=== PATIENT | female | born 1945 | race Caucasian/White ===

== ENCOUNTER → 2017-08-08 08:23 | Outpatient (POV) | payer MEDICARE, OTHER, SELFPAY ==
[2017-08-08 10:00] LABS: Basophils % 0.3 % (0.1-2.0); Eosinophils # 0.1 K/mm3 (0.0-0.4); Eosinophils % 1.3 % (0.1-12.0); Hematocrit 36.9 % (37.0-47.0); Hemoglobin 11.4 g/dL (12.2-16.2); Lymphocytes # 1.9 K/mm3 (0.7-4.5); Lymphocytes % 18.4 K/mm3 (10-50); Mean Corpuscular HGB Conc 30.8 g/dL (31.8-35.4); Mean Corpuscular Hemoglobin 26.3 pg (27.0-31.2); Mean Corpuscular Volume 85.2 fl (81-99); Mean Platelet Volume 8.7 fl (7.4-10.4); Monocytes # 0.5 K/mm3 (0.1-1.0); Monocytes % 4.6 % (1.7-9.3); Neutrophils # 7.9 K/mm3 (1.8-7.8); Neutrophils % 75.3 % (37.0-80.0); Platelet Count 398 K/mm3 (142-424); Red Blood Count 4.33 M/mm3 (4.20-5.40); Red Cell Distribution Width 14.7 % (11.5-17.5); White Blood Count 10.5 K/mm3 (4.8-10.8)
[2017-08-08 10:46] LABS: Erythrocyte Sedimentation Rate 39 mm/hr (0-30)
[2017-08-08 11:54] LABS: Alanine Aminotransferase 22 U/L (12-78); Albumin Level 3.7 gm/dL (3.4-5.0); Alkaline Phosphatase 100 U/L (46-116); Anion Gap 13.2 mEq/L (5-15); Aspartate Amino Transferase 20 U/L (15-37); Bilirubin,Total 0.4 mg/dL (0.2-1.0); Blood Urea Nitrogen 13 mg/dL (7-18); C-Reactive Protein 1.3 mg/L (0.0-0.9); Calcium 9.3 mg/dL (8.5-10.1); Carbon Dioxide 27 mmol/L (21.0-32.0); Chloride 102 mmol/L (98-107); Creatinine,Serum 0.98 mg/dL (0.55-1.02); Estimated Glomerular Filt Rate 56 ml/min (>60); Ferritin 6 ng/mL (8-388); GFR (African American) > 60 ML/MIN (>60); Globulin 3.6 gm/dl (1.3-3.2); Glucose 231 mg/dL (74-106); Potassium 4.2 mmoL/L (3.5-5.1); Sodium 138 mmol/L (136-145); Total Protein,Serum 7.3 gm/dL (6.4-8.2)
[2017-08-09 08:22] LABS: Iron 38 ug/dL (27-139); Iron Saturation 8 % (15-55); UIBC 413 ug/dL (118-369)
[2017-08-09 13:38] LABS: Vitamin B12 489 pg/mL (232-1245)
[2017-08-12 17:10] LABS: Saccharomyces cerevisiae, IgA <20.0 Units (0.0-24.9); Saccharomyces cerevisiae, IgG 36.3 Units (0.0-24.9)
== END ==
PROVIDERS: Visit Provider Nurse Practitioner Acute Care
DX: K51.90 Ulcerative colitis, unspecified, without complications (principal)
CPT/HCPCS: 36415; 80053; 82607; 82728; 83550; 85025; 85651; 86140

== ENCOUNTER → 2017-09-14 15:45 | Outpatient (CLI) | payer MEDICARE, OTHER, SELFPAY ==
[2017-09-14 15:52] LABS: Adenovirus F 40/41, stool Not Detected (NotDetected); Astrovirus Not Detected (NotDetected); Campylobacter Not Detected (NotDetected); Clostridium Difficile A/B, PCR Not Detected (NotDetected); Cryptosporidium Not Detected (NotDetected); Cyclospora Cayetanesis Not Detected (NotDetected); Entamoeba histolytica Not Detected (NotDetected); Enteroaggregative E coli Not Detected (NotDetected); Enteropathogenic E coli Not Detected (NotDetected); Enterotoxigenic E coli Not Detected (NotDetected); Giardia lamblia Not Detected (NotDetected); Norovirus Not Detected (NotDetected); Plesimonas Shigalloides, PCR Not Detected (NotDetected); Rotavirus A Not Detected (NotDetected); Salmonella, PCR Not Detected (NotDetected); Sapovirus Not Detected (NotDetected); Shiga-like toxin E coli Not Detected (NotDetected); Shigella Enterovasive E coli Not Detected (NotDetected); Vibrio Cholerae Not Detected (NotDetected); Vibrio, PCR Not Detected (NotDetected); Yersinia Entercolitica, PCR Not Detected (NotDetected)
== END ==
PROVIDERS: PCP Family Medicine; Visit Provider Nurse Practitioner Acute Care
DX: K51.90 Ulcerative colitis, unspecified, without complications (principal)
CPT/HCPCS: 87507

== ENCOUNTER → 2018-03-23 11:05 | Outpatient (CLI) | payer MEDICARE, OTHER, SELFPAY ==
--- NOTE | 2018-03-23 11:13 | XR_ITS ---
XR chest 2V HISTORY: ITS.REASON: dyspnea and chest pressure ORDERING PHYSICIAN: Jorgito Pollock MD PATIENT AGE: 72 years COMPARISON: 03/13/2015 FINDINGS: There has been interval placement of a bipolar pacemaker of a left subclavian approach. There is some increased density in the right lung base which may be related to pericardial fat pad. The lungs are otherwise clear. No acute bony anomalies. Mild degenerative change thoracic spine. IMPRESSION: Cardiac pacemaker device present otherwise negative
--- NOTE | 2018-03-23 11:13 | NM_ITS ---
History and Indications: Status post pacemaker, congestive heart failure, hypertension, diabetes, hyperlipidemia and family history. Procedure: Patient received a 0.4 mg of Lexiscan, resting heart rate was 82 beats per resting blood pressure 109/61, with Lexiscan maximum heart rate achieved was 93 bpm which is less than 85% of the maximum predicted heart rate and a blood pressure was 94/32. With Lexiscan patient chest pressure and shortness of breath Electrocardiogram: Resting electrocardiogram showed sinus rhythm, with Lexiscan less than 1.[address] segment depression noted from the baseline EKG. The EKG portion of the Lexiscan Myoview is nondiagnostic. Cardiac stress and resting SPECT images: Cardiac stress and resting SPECT images were obtained using technetium 99 Myoview 31.1 mCi at stress and 10.0 mCi at rest. Gated SPECT further analysis of segmental wall motion and calculation of the ejection fraction also done. Cardiac stress and rest images show a partial reversible defect in the anteroseptal area consistent with ischemia and scar, computer derived ejection fraction 51%, with abnormal septal motion. Right ventricle is normal size and contractility. Conclusion: 1. The EKG portion of the Lexiscan Myoview is nondiagnostic. 2. Scintigraphic evidence of partial reversible defect in the anteroseptal area consistent with ischemia and scar, computer derived ejection fraction 51% with abnormal septal motion. Right ventricle is normal size and contractility. 3. Abnormal Lexiscan Myoview study
[2018-03-23 13:40] LABS: Alanine Aminotransferase 28 U/L (12-78); Albumin Level 4.4 gm/dL (3.4-5.0); Alkaline Phosphatase 115 U/L (46-116); Aspartate Amino Transferase 24 U/L (15-37); Bilirubin,Direct 0.1 mg/dL (0.0-0.2); Bilirubin,Indirect 0.4 mg/dL (0.0-0.9); Bilirubin,Total 0.5 mg/dL (0.2-1.0); Cholesterol 215 mg/dL (140-200); HDL Cholesterol 43 mg/dL (29-89); LDL Cholesterol 137 mg/dL (0-130); Total Protein,Serum 8.8 gm/dL (6.4-8.2); Triglycerides 177 mg/dL (30-200); VLDL Cholesterol 35 mg/dL (0-40)
--- NOTE | 2018-03-23 14:33 | HMH.ITSHM ---
metformin asa losartan omprazole gemfibrozil venlafaxine
[2018-03-23 16:20] LABS: Anion Gap 22.1 mEq/L (5-15); Blood Urea Nitrogen 17 mg/dL (7-18); Calcium 10.6 mg/dL (8.5-10.1); Carbon Dioxide 23 mmol/L (21.0-32.0); Chloride 100 mmol/L (98-107); Creatinine,Serum 1.06 mg/dL (0.55-1.02); Estimated Glomerular Filt Rate 51 ml/min (>60); GFR (African American) 62 ML/MIN (>60); Glucose 248 mg/dL (74-106); Potassium 4.1 mmoL/L (3.5-5.1); Sodium 141 mmol/L (136-145)
== END ==
PROVIDERS: Internal Medicine Cardiovascular Disease; Urology; PCP Family Medicine; Visit Provider Internal Medicine
DX: R06.02 Shortness of breath (principal); R07.89 Other chest pain; I10 Essential (primary) hypertension; I25.10 Atherosclerotic heart disease of native coronary artery without angina pectoris; I42.8 Other cardiomyopathies
CPT/HCPCS: 36415; 71046; 78452; 80048; 80061; 80076; 83880; 93017; A9502; J2785

== ENCOUNTER → 2018-04-04 15:51 | Outpatient (CLI) | payer MEDICARE, OTHER, SELFPAY ==
[2018-04-04 16:19] LABS: Basophils % 0.1 % (0.1-2.0); Eosinophils % 0.3 % (0.1-12.0); Hematocrit 41.5 % (37.0-47.0); Hemoglobin 12.9 g/dL (12.2-16.2); Lymphocytes # 1.4 K/mm3 (0.7-4.5); Lymphocytes % 10.5 K/mm3 (10-50); Mean Corpuscular Hemoglobin 26.2 pg (27.0-31.2); Mean Corpuscular Volume 84.6 fl (81-99); Mean Platelet Volume 8.3 fl (7.4-10.4); Monocytes # 0.6 K/mm3 (0.1-1.0); Monocytes % 4.9 % (1.7-9.3); Neutrophils # 10.9 K/mm3 (1.8-7.8); Neutrophils % 84.2 % (37.0-80.0); Platelet Count 564 K/mm3 (142-424); Red Blood Count 4.91 M/mm3 (4.20-5.40); Red Cell Distribution Width 14.9 % (11.5-17.5)
[2018-04-04 16:24] LABS: Anion Gap 23.6 mEq/L (5-15); Blood Urea Nitrogen 47 mg/dL (7-18); Calcium 9.6 mg/dL (8.5-10.1); Carbon Dioxide 21 mmol/L (21.0-32.0); Chloride 92 mmol/L (98-107); Creatinine,Serum 2.32 mg/dL (0.55-1.02); Estimated Glomerular Filt Rate 21 ml/min (>60); GFR (African American) 25 ML/MIN (>60); Potassium 4.6 mmoL/L (3.5-5.1); Sodium 132 mmol/L (136-145)
[2018-04-04 16:41] LABS: Glucose 419 mg/dL (74-106)
== END ==
PROVIDERS: PCP Family Medicine; Visit Provider Internal Medicine
DX: R19.7 Diarrhea, unspecified (principal); I25.10 Atherosclerotic heart disease of native coronary artery without angina pectoris; I10 Essential (primary) hypertension; R06.00 Dyspnea, unspecified
CPT/HCPCS: 36415; 80048; 83880; 85025

== ENCOUNTER → 2018-04-05 09:19 | Outpatient (CLI) | payer MEDICARE, OTHER, SELFPAY ==
[2018-04-05 09:44] LABS: Anion Gap 16.8 mEq/L (5-15); Blood Urea Nitrogen 46 mg/dL (7-18); Calcium 9.9 mg/dL (8.5-10.1); Carbon Dioxide 27 mmol/L (21.0-32.0); Chloride 92 mmol/L (98-107); Creatinine,Serum 1.69 mg/dL (0.55-1.02); Estimated Glomerular Filt Rate 30 ml/min (>60); GFR (African American) 36 ML/MIN (>60); Glucose 371 mg/dL (74-106); Potassium 4.8 mmoL/L (3.5-5.1); Sodium 131 mmol/L (136-145)
== END ==
PROVIDERS: Physician Assistant; PCP Family Medicine; Visit Provider Internal Medicine
DX: E78.5 Hyperlipidemia, unspecified (principal); I10 Essential (primary) hypertension; I25.10 Atherosclerotic heart disease of native coronary artery without angina pectoris; I42.8 Other cardiomyopathies; R06.00 Dyspnea, unspecified; R19.7 Diarrhea, unspecified; Z95.810 Presence of automatic (implantable) cardiac defibrillator
CPT/HCPCS: 36415; 80048

== ENCOUNTER → 2018-05-24 08:41 | Outpatient (CLI) | payer MEDICARE, OTHER, SELFPAY ==
--- NOTE | 2018-05-24 08:50 | XR_ITS ---
XR chest 2V HISTORY: ITS.REASON: COUGH ORDERING PHYSICIAN: Eva Baumann PATIENT AGE: 73 years COMPARISON: 03/23/2018 FINDINGS: Cardiac pacemaker is present from left subclavian approach. Normal heart size. Increased density right lung base medially unchanged felt to represent a pericardial fat pad degenerative change thoracic spine. No lobar consolidation or collapse. IMPRESSION: No change with no acute finding
== END ==
PROVIDERS: PCP Family Medicine; Visit Provider Nurse Practitioner Family
DX: R05 Cough (principal)
CPT/HCPCS: 71046

== ENCOUNTER → 2018-08-10 10:28 | Outpatient (CLI) | payer MEDICARE, OTHER, SELFPAY ==
[2018-08-10 12:01] LABS: Anion Gap 21.8 mEq/L (5-15); Blood Urea Nitrogen 30 mg/dL (7-18); Calcium 9.4 mg/dL (8.5-10.1); Carbon Dioxide 20 mmol/L (21.0-32.0); Chloride 100 mmol/L (98-107); Creatinine,Serum 1.21 mg/dL (0.55-1.02); Estimated Glomerular Filt Rate 44 ml/min (>60); GFR (African American) 53 ML/MIN (>60); Glucose 196 mg/dL (74-106); Potassium 4.8 mmoL/L (3.5-5.1); Sodium 137 mmol/L (136-145)
== END ==
PROVIDERS: Visit Provider Internal Medicine Cardiovascular Disease
DX: E78.2 Mixed hyperlipidemia (principal); I10 Essential (primary) hypertension; I25.10 Atherosclerotic heart disease of native coronary artery without angina pectoris; I42.8 Other cardiomyopathies; R06.00 Dyspnea, unspecified; R06.01 Orthopnea; R06.02 Shortness of breath; R60.9 Edema, unspecified; Z95.810 Presence of automatic (implantable) cardiac defibrillator
CPT/HCPCS: 36415; 80048; 83880

== ENCOUNTER → 2018-08-15 09:51 | Outpatient (CLI) | payer MEDICARE, OTHER, SELFPAY ==
--- NOTE | 2018-08-15 09:55 | CA_ITS ---
PROCEDURE: 2-D M-mode and color Doppler study INDICATIONS FOR THE TEST: Chest pain COPD Heart Murmur Tobacco Smoking Palpitations Fatigue Syncope Edema+ Hypertension+Diabetes Mellitus Rheumatic Fever SOB+JOHNSON Obesity Hyperlipidemia+ Family History HD Additional History AICD CM PATIENT INFORMATION HEIGHT: 65 WEIGHT:154 GENDER: Female B/P:96/43 2-D/M-MODE INTERPRETATION: 2-D MEASUREMENTS OBSERVED VALUES IN CMS Right Ventricular Dimension (RVDd) 1.9 Interventricular Septum (Thickness)(IVsd) 1.1 Left Ventricular Internal Dimensions(LVIDd) 4.8 Left Ventricular Posterior Wall (Thickness)(LVPWd) 0.8 Aortic Root 3.0 Aortic Cusp Separation 1.9 Left Atrial Dimensions (LAD) 2.9 2D 1. Left atrium is mildly enlarged, left ventricle is normal size, mild concentric left ventricular hypertrophy, visually estimated ejection fraction approximately 45%, there is marked abnormal septal motion. 2. The right atrium and right ventricle are normal size and contractility, there is a pacemaker lead seen right atrium and right ventricle. 3. The aortic valve is minimally thickened and fibrosed. 4. The mitral and tricuspid valve leaflets are minimally thickened . 5. The pulmonic valve is poorly visualized. 6. No significant pericardial effusion noted. DOPPLER INTERROGATION: Doppler interrogation of the aortic, mitral and tricuspid valvular presence of mild mitral and tricuspid regurgitation, tricuspid regurgitation jet velocity is inadequate for calculation of the right ventricular systolic pressure, grade 1 diastolic dysfunction seen with tissue Doppler evidence of raised left atrial pressure. CONCLUSION: 1. Mildly enlarged left atrium, normal left ventricular size, mild concentric left ventricular hypertrophy, visually estimated ejection fraction of 45%, there is marked abnormal septal motion, grade 1 diastolic dysfunction seen with tissue Doppler evidence of raised left atrial pressure. 2. Mild mitral and tricuspid regurgitation 3. No significant pericardial effusion noted.
== END ==
PROVIDERS: PCP Family Medicine; Visit Provider Internal Medicine Cardiovascular Disease
DX: R06.02 Shortness of breath
CPT/HCPCS: 93306

== ENCOUNTER → 2018-12-13 08:30 | Outpatient (CLI) | payer MEDICARE, OTHER, SELFPAY ==
--- NOTE | 2018-12-13 08:32 | MM_ITS ---
MM Dig screening mamm BI w/CAD ORDERING PHYSICIAN : Elsie Mccurdy APRN PATIENT AGE: 73 years GENDER: Female COMPARISON: No previous studies available studies from this facility have been purged INDICATION: ITS bilateral screening mammogram. No hormones. No new complaints. Patient has history of skin cancer Noncontributory family history otherwise. TECHNIQUE: Standard CC and MLO images were obtained. R2 CAD reviewed. Axillary cc view both breast included FINDINGS:. Areas of moderate breast density.. Mild /moderate scattered fibroglandular elements Scattered round spherical benign benign calcifications both breasts.. Likely in part reflect benign oil cysts.. RIGHT BREAST: Area labeled A: 9 mm ovoid density at the lateral right breast is most compatible with benign intramammary lymph node. Central fat lucency & umbilication. This area measuring up to 9 mm maximally. It can be followed Area labeled B: On close inspection I would note some tiny granular calcifications, microcalcifications at the central breast. These warrant further evaluation with magnification spot views. Cc 90 degree magnification views. Full 90 degree right breast view suggested as well LEFT BREAST: A similar 9 mm ovoid density with central fat reflecting intramammary node upper-outer quadrant/far lateral left breast. Can be followed. Pacemaker projected over the deep axillary left breast. In view of the slight suspect calcifications I would also suggest ultrasound both breast including axillary node survey. IMPRESSION: 1. Right breast Collection of Small faint granular calcifications & microcalcifications at through Central breast.-This region labeled B.... Warrants magnification spot views to further evaluate 2. Benign appearing intramammary nodes seen towards the periphery of upper outer quadrant of both right & left breast..... On these appear to be benign intramammary nodes but would suggest ultrasound both breasts to further survey. BI-RADS Category: 0 Need Additional Imaging Evaluation RECOMMENDED FOLLOW-UP: IMM - IMMEDIATE FOLLOW-UP RECOMMENDED (A letter has been sent to the patient regarding results of the study.)
== END ==
PROVIDERS: PCP Nurse Practitioner Family; Visit Provider Nurse Practitioner Family
DX: Z12.31 Encounter for screening mammogram for malignant neoplasm of breast (principal)
CPT/HCPCS: 77067

== ENCOUNTER → 2019-01-01 13:35 | Outpatient (CLI) | payer MEDICARE, OTHER, SELFPAY ==
--- NOTE | 2019-01-01 13:42 | MM_ITS ---
MM Dig mamm DX unilat RT CAD, US breast LT complete, US breast RT complete INDICATION: Follow-up abnormal screening study ORDERING PHYSICIAN: Elsie Mccurdy APRN PATIENT AGE: 73 years COMPARISON: 12/13/2018 TECHNIQUE: Mag views are performed of the right breast and bilateral breast ultrasound also performed. FINDINGS: The previously noted area of calcification in the 12:00 region of the right breast is localized by mag views. This cluster has a suspicious appearance with a cluster of pleomorphic calcifications. Biopsy is suggested and may be attempted by the stereotactic approach. Right breast ultrasound: Scattered small hyperechoic nodules with posterior acoustical shadowing noted corresponding to the liponecrosis macrocystica as seen on the mammogram represent benign finding. In the outer aspect of the right breast there is an 8 mm complex nodule with increased echogenicity centrally and hypoechogenicity peripherally consistent with a lymph node measuring 9 mm. Left breast ultrasound: Scattered small rounded hyperechoic foci with posterior acoustical shadowing consistent with liponecrosis macrocystic as seen on the mammogram. There is an 8 mm x 10 mm lymph node in the upper outer left breast corresponding to the mammographic abnormality. IMPRESSION: Calcifications in the superior right breast anterior one third are suspicious and stereotactic biopsy is suggested. BI-RADS Category: 4 Suspicious Abnormality-Biopsy Considered RECOMMENDED FOLLOW-UP: BIO - BIOPSY RECOMMENDED (A letter has been sent to the patient regarding results of the study.)
== END ==
PROVIDERS: PCP Nurse Practitioner Family; Visit Provider Nurse Practitioner Family
DX: R92.8 Other abnormal and inconclusive findings on diagnostic imaging of breast (principal)
CPT/HCPCS: 76641; 77065

== ENCOUNTER → 2019-01-30 13:04 | Outpatient (CLI) | payer MEDICARE, OTHER, SELFPAY ==
--- NOTE | 2019-01-30 13:12 | MM_ITS ---
MM stereotactic loc RT, MM clip placement RT ORDERING PHYSICIAN: Elsie Mccurdy APRN PATIENT AGE: 73 years Comparison: 12/13/2018 HISTORY: Breast calcifications, abnormal right mammogram showing suspicious calcifications PROCEDURE: The patient was placed on the stereotactic table and the abnormality was localized in the most appropriate projection. The breast was prepped in the routine manner, with sterile prep and the overlying skin anesthetized. A 3 to 4 mm skin incision was performed and the 9 gauge sorus vacuum-assisted core biopsy needle was advanced to the region of the calcification. Pre- and post fire images were obtained. After adequate positioning relative to the calcifications was ensured, multiple biopsies were obtained in the region of the calcifications specifically. The core biopsies obtained were sent for specimen mammography. After the calcifications were indeed identified on the specimen mammogram, the procedure was terminated. The patient tolerated the procedure well without complications. A tiny titanium nonferromagnetic MicroMark was positioned through the mammotome needle into the biopsy site. Postbiopsy mammogram: There are postbiopsy changes in central aspect of the right breast. A clip is present. Previously noted suspicious calcifications are no longer. Pathology: Fibrocystic changes with ductal microcalcifications and patchy areas of chronic inflammation. No atypia, ductal carcinoma in situ, or malignancy identified IMPRESSION: Status post stereotactic directed biopsy of the right breast calcifications without evidence of immediate complication. Calcifications of interest were removed, a clip placed. Pathology shows benign findings. Recommendations: 6 month mammographic follow-up of the right breast per routine protocol
== END ==
PROVIDERS: PCP Nurse Practitioner Family; Visit Provider Nurse Practitioner Family
DX: R92.1 Mammographic calcification found on diagnostic imaging of breast (principal)
CPT/HCPCS: 19081; 77065; 88305

== ENCOUNTER → 2019-07-06 10:20 | Outpatient (CLI) | payer MEDICARE, OTHER, SELFPAY ==
[2019-07-06 11:27] LABS: Anion Gap 12.7 mEq/L (5-15); Blood Urea Nitrogen 19 mg/dL (7-18); Calcium 9.1 mg/dL (8.5-10.1); Carbon Dioxide 28 mmol/L (21.0-32.0); Chloride 100 mmol/L (98-107); Creatinine,Serum 0.92 mg/dL (0.55-1.02); Estimated Glomerular Filt Rate 60 ml/min (>60); GFR (African American) 73 ML/MIN (>60); Glucose 307 mg/dL (74-106); Potassium 4.7 mmoL/L (3.5-5.1); Sodium 136 mmol/L (136-145)
== END ==
PROVIDERS: Urology; Visit Provider Internal Medicine Cardiovascular Disease
DX: R06.00 Dyspnea, unspecified (principal); E78.2 Mixed hyperlipidemia; I10 Essential (primary) hypertension; I25.10 Atherosclerotic heart disease of native coronary artery without angina pectoris; I42.8 Other cardiomyopathies; R06.02 Shortness of breath; R60.9 Edema, unspecified; Z95.810 Presence of automatic (implantable) cardiac defibrillator
CPT/HCPCS: 36415; 80048; 83880

== ENCOUNTER → 2019-10-05 10:15 | Outpatient (CLI) | payer MEDICARE, OTHER, SELFPAY ==
[2019-10-05 11:18] LABS: Chloride 103 mmol/L (98-107); Potassium 4.6 mmoL/L (3.5-5.1); Sodium 140 mmol/L (136-145)
[2019-10-05 11:21] LABS: Blood Urea Nitrogen 25 mg/dl (7-17); Estimated Glomerular Filt Rate 62 ml/min (>60); GFR (African American) 74 ML/MIN (>60)
[2019-10-05 11:22] LABS: Anion Gap 16.6 mEq/L (5-15); Calcium 10.6 mg/dl (8.4-10.2); Carbon Dioxide 25 mmol/L (22.0-30.0); Glucose 184 mg/dl (74-100)
[2019-10-05 11:31] LABS: NT Pro Brain Natriuretic Pep. 152 pg/mL (0-125)
== END ==
PROVIDERS: Visit Provider Urology
DX: R06.02 Shortness of breath (principal); I25.10 Atherosclerotic heart disease of native coronary artery without angina pectoris
CPT/HCPCS: 36415; 80048; 83880

== ENCOUNTER → 2020-06-09 14:51 | Outpatient (CLI) | payer MEDICARE, OTHER, SELFPAY | PROVIDERS: PCP Nurse Practitioner Family; Visit Provider Nurse Practitioner Family | DX: Z03.818 Encounter for observation for suspected exposure to other biological agents ruled out (principal) | CPT/HCPCS: U0003 ==

== ENCOUNTER → 2020-07-30 12:47 | Outpatient (CLI) | payer MEDICARE, OTHER, SELFPAY ==
--- NOTE | 2020-07-30 | CA_ITS ---
APPROVED REPORT Assistant Credit Manager: BATSHEVA Laterality: Bilateral Indications: Dizziness, HLD, HTN, CAD Risk Factors Hypertension: Hyperlipidemia Doppler Spectral Velocity Analysis ECA (R) 115.50/15.00 cm/s ECA (L) 116.70/22.40 cm/s dICA (R) 55.20/15.00 cm/s dICA (L) 59.90/16.00 cm/s Italo (R) 53.50/14.50 cm/s Italo (L) 68.80/20.20 cm/s pICA (R) 71.10/19.70 cm/s pICA (L) 62.10/15.00 cm/s dCCA (R) 75.40/18.80 cm/s dCCA (L) 79.00/18.30 cm/s pCCA (R) 78.80/15.40 cm/s pCCA (L) 96.30/18.30 cm/s Vert (R) 38.50/10.30 cm/s Vert (L) 44.90/9.00 cm/s ICA/CCA 0.94 ICA/CCA 0.87 Findings Duplex evaluation demonstrates stenosis of the right proximal internal carotid artery <20% with PSV <140 cm/sec, EDV <100 cm/sec, and IC/CC Ratio <4.0. Duplex evaluation demonstrates no evidence of hemodynamically significant stenosis of the left Internal Carotid Artery. Conclusion Duplex evaluation demonstrates stenosis of the right proximal internal carotid artery <20% with PSV <140 cm/sec, EDV <100 cm/sec, and IC/CC Ratio <4.0. Duplex evaluation demonstrates no evidence of hemodynamically significant stenosis of the left Internal Carotid Artery. Electronically signed by : Matt Will MD 07/31/2020 08:59:37
--- NOTE | 2020-07-30 13:31 | CT_ITS ---
PROCEDURE: CT HEAD/BRAIN WO CON CLINICAL INDICATION: DIZZINESS,BALANCE PROBLEMS COMPARISON: No exams were available for comparison TECHNIQUE: Axial images obtained. All CT scans at the facility use one or more dose reduction, viz: automated exposure control, ma/kV adjustment per patient size (including targeted exams where dose is matched to indication, i.e. head), or iterative reconstruction technique. FINDINGS: No midline shift, mass effect, intracranial hemorrhage, hydrocephalus, or extra-axial fluid collection is evident. The basilar cisterns are mildly prominent. The sylvian fissures and cortical sulci prominent. There are mild atrophic changes of the cerebellar hemispheres. There are mild bilateral periventricular hypodensities consistent with chronic ischemic white matter changes. The calvarium has an unremarkable appearance. No mastoid effusion. The bilateral internal auditory canals appear normal. No sinus air-fluid level. IMPRESSION: Findings of mild age-appropriate cortical atrophy and mild chronic ischemic white matter changes, no acute intracranial pathology Dictated by: Dr. Ez Mcleod MD 07/30/2020 14:39 Dr. Ez Mcleod MD in [facility] 07/30/2020 14:39
--- NOTE | 2020-07-30 13:32 | US_ITS ---
PROCEDURE: US THYROID Referring Doctor: Elsie Mccurdy Patient Age:75Y CLINICAL INDICATION: THYROID NODULEs COMPARISON: No exams were available for comparison FINDINGS: Numerous scattered small mainly cystic areas and small hypoechoic nodules both right and left lobe. Too numerous to count all these the tinier and smaller smaller areas.-The more notable areas highlighted below. Previous study from [facility] not available. .. RIGHT LOBE thyroid: Overall 3.7 cm length x 2 cm wide x 1.1 cm AP Nodule A: Upper pole 3.7 mm debris-filled cyst or semi-solid nodule. Nodule B: Mid thyroid centrally 3.6 mm cyst nodule C: 3.5 mm mainly small cystic nodule with minimal solid component posteriorly. .. LEFT LOBE THYROID: Overall 3.6 cm length x 1.6 cm wide x 1.2 cm AP Nodule A: Upper pole 7.8mm x 6 mm-mainly cystic area with some small 3.5 mm round more solid component within it.. Nodule B:. 6 mm x 3.5 mm again mainly cystic nodule with a more solid round area with it nodule C:. 5 mm mainly cystic area with small tiny solid area within it.. ISTHMUS: Upper normal thickness 4.8 mm AP. Two or 3 very tiny cystic areas at isthmus . IMPRESSION: 1..Numerous small cystic areas, and mixed cystic/solid areas seen throughout thyroid gland bilaterally. Many these cystic areas containing containing small solid components within them. -The largest cystic area with solid nodule within it at upper pole left lobe measures 7.8 mm. 2...Right and left lobe thyroid normal size,. Dictated by: Matt Will MD 08/02/2020 15:04 Matt Will MD in [facility] 08/02/2020 15:04
== END ==
PROVIDERS: PCP Nurse Practitioner Family; Visit Provider Nurse Practitioner Family
DX: R42 Dizziness and giddiness (principal); E04.1 Nontoxic single thyroid nodule; R26.89 Other abnormalities of gait and mobility
CPT/HCPCS: 70450; 76536; 93880

== ENCOUNTER → 2020-10-10 12:50 | Outpatient (CLI) | payer MEDICARE, OTHER, SELFPAY ==
--- NOTE | 2020-10-10 13:01 | US_ITS ---
PROCEDURE: US THYROID CLINICAL INDICATION: Thyroid Nodules Follow-up thyroid nodules COMPARISON: US US THYROID from 07/30/2020 FINDINGS: The right lobe is 3.7 x 1.4 x 1.9 cm. A 5 mm hypoechoic solid-appearing nodules present in the upper pole unchanged. Several small cysts are present in the right lobe which are benign appearing and unchanged. The left lobe is 3.6 x 1.3 x 1.3 cm. A complex cystic nodules present in the upper pole at 8 x 4 mm unchanged. Mixed nodules present in the midpole at 6 mm unchanged. Solid-appearing nodules present in the mid polar region at 5 mm unchanged. There is a 6 mm cyst in the lower pole unchanged IMPRESSION: No change bilateral benign-appearing thyroid nodules Dictated by: Zachary Stone MD 10/10/2020 17:18 Zachary Stone MD in [facility] 10/10/2020 17:18
[2020-10-10 15:20] LABS: Free T4 (Free Thyroxine) 0.88 ng/dl (0.78-2.19)
[2020-10-12 10:31] LABS: Thyroid Peroxidase Antibodies <9 IU/mL (0-34)
== END ==
PROVIDERS: PCP Nurse Practitioner Family; Visit Provider Otolaryngology
DX: E04.1 Nontoxic single thyroid nodule (principal); E07.9 Disorder of thyroid, unspecified; H93.19 Tinnitus, unspecified ear; R42 Dizziness and giddiness
CPT/HCPCS: 36415; 76536; 84439; 84443; 86376

== ENCOUNTER 2020-10-15 17:00 | Inpatient (IN) | payer MEDICARE, OTHER, SELFPAY ==
[2020-10-15] VITALS (32 sets, daily range): BP systolic 139–203; BP diastolic 76–120; PULSE 62–110; RESP 13–29; TEMP 36.6–36.8; O2SAT 88–98; BMI 25.7; BMI 24.0
--- NOTE | 2020-10-15 16:56 | ECG_ITS ---
APPROVED REPORT Exam: Resting ECG HR:111 bpm ECG Measurements Heart Rate 111 AXES OH 136 P 70 QRSd 134 QRS 84 QT 332 T 268 QTc 451 Conclusion Demand pacemaker, interpretation is based on intrinsic rhythm Sinus tachycardia with occasional and consecutive premature ventricular complexes and fusion complexes Abnormal ECG Electronically signed by : Joni Corcoran, 10/17/2020 11:44:12
--- NOTE | 2020-10-15 17:01 | XR_ITS ---
PROCEDURE: XR CHEST PORTABLE CLINICAL HISTORY: chest pain COMPARISON: No exams were available for comparison FINDINGS: There is borderline cardiomegaly. Cardiac pacemaker device is present. Two leads are in the region of the right ventricle and 1 in the region the right atrium. No CHF. The lungs are clear without infiltrates, suspicious nodules, or pleural effusions. No acute bony abnormalities. IMPRESSION: Borderline cardiomegaly with pacemaker present. Dictated by: Zachary Stone MD 10/15/2020 19:35 Zachary Stone MD in [facility] 10/15/2020 19:35
--- NOTE | 2020-10-15 17:01 | PC.NURSE ---
1055- EKG sent to Dr. Pollock
--- NOTE | 2020-10-15 17:04 | HMH.EDCP ---
ED Disposition Clinical Impression: Hypertensive urgency Chest pain Qualifiers: Chest pain type: unspecified Qualified Code(s): R07.9 - Chest pain, unspecified Disposition: Admitted as Observation Condition on Discharge: Good Referrals: Provider,Referral, [Referring] - Time of Disposition: 19:57 - Critical Care Critical Care Time: No Attestation: On 10/15/20, the high probability of a clinically significant, sudden or life threatening deterioration of the following system(s) required my full and direct attention, intervention and personal management. The time I documented below is in addition to time spent performing reported procedures but includes the following listed in this critical care notation. Medical Decision Making - Medical Records Medical records reviewed: Yes: I reviewed the patient's medical records. - Alberto Inquiry Pt receiving controlled substance: No Vital Signs: 10/15/20 17:00 10/15/20 17:05 10/15/20 17:15 Temperature 98.1 F Temperature Source Oral Pulse Rate 108 H 70 Pulse Rate [Right] 108 H Respiratory Rate 18 23 29 H Blood Pressure Blood Pressure [Right Arm] 190/102 H Blood Pressure Mean Blood Pressure Mean [Right Arm] 131 02 Sat by Pulse Oximetry 98 98 97 10/15/20 17:16 10/15/20 17:30 10/15/20 17:31 Temperature Temperature Source Pulse Rate 109 H 106 H 103 H Pulse Rate [Right] Respiratory Rate 22 20 20 Blood Pressure 193/112 H 202/120 H Blood Pressure [Right Arm] Blood Pressure Mean 139 133 Blood Pressure Mean [Right Arm] 02 Sat by Pulse Oximetry 97 98 97 10/15/20 17:45 10/15/20 17:46 10/15/20 18:00 Temperature Temperature Source Pulse Rate 62 98 H 107 H Pulse Rate [Right] Respiratory Rate 20 22 22 Blood Pressure 192/92 H Blood Pressure [Right Arm] Blood Pressure Mean 125 Blood Pressure Mean [Right Arm] 02 Sat by Pulse Oximetry 93 L 94 L 93 L 10/15/20 18:01 10/15/20 18:15 10/15/20 18:30 Temperature Temperature Source Pulse Rate 101 H 110 H Pulse Rate [Right] Respiratory Rate 16 20 22 Blood Pressure 203/113 H 200/119 H Blood Pressure [Right Arm] Blood Pressure Mean 135 146 Blood Pressure Mean [Right Arm] 02 Sat by Pulse Oximetry 95 96 10/15/20 18:31 10/15/20 18:45 10/15/20 18:46 Temperature Temperature Source Pulse Rate Pulse Rate [Right] Respiratory Rate 22 13 17 Blood Pressure 168/90 H 202/118 H Blood Pressure [Right Arm] Blood Pressure Mean 116 136 Blood Pressure Mean [Right Arm] 02 Sat by Pulse Oximetry 10/15/20 19:00 10/15/20 19:06 10/15/20 19:15 Temperature Temperature Source Pulse Rate 100 H 96 H 107 H Pulse Rate [Right] Respiratory Rate 21 13 19 Blood Pressure 170/104 H 158/100 H 163/106 H Blood Pressure [Right Arm] Blood Pressure Mean 126 117 117 Blood Pressure Mean [Right Arm] 02 Sat by Pulse Oximetry 88 L 91 L 93 L - Lab Data Lab results reviewed: Yes: I reviewed the patient's lab results. Lab Results 10/15/20 17:01: WBC 10.9 H, RBC 5.48 H, Hgb 16.1, Hct 48.2 H, MCV 87.9, MCH 29.4, MCHC 33.5, RDW 14.1, Plt Count 274, MPV 8.5, Neut % (Auto) 64.6, Lymph % (Auto) 29.1, Stephens % (Auto) 4.7, Eos % (Auto) 1.2, Baso % (Auto) 0.3, Neut # (Auto) 7.1, Lymph # (Auto) 3.2, Stephens # (Auto) 0.5, Eos # (Auto) 0.1, Baso # (Auto) 0.0 10/15/20 17:01: Sodium 134 L, Potassium 4.2, Chloride 101, Carbon Dioxide 22, Anion Gap 15.2 H, BUN 15, Creatinine 0.60, Estimated Creat Clear 50, Estimated GFR 98, Est GFR ( Amer) 119, Glucose 362 H, Calcium 10.3 H, Troponin I < 0.01 10/15/20 17:01: PT 10.9, INR 0.92 10/15/20 17:01: NT-Pro-B Natriuret Pep 468 H Result diagrams: 10/15/20 17:01 10/15/20 17:01 Orders (Tests/Meds): ORDERS Category Date Time Status Full Resp Panel w/COVID ([facility]) Routine Lab 10/15/20 19:03 Received Troponin I Q3H Lab 10/15/20 20:15 Ordered Troponin I Q3H Lab 10/15/20 23:15 Ordered Urinalysis a
[2020-10-15 17:31] LABS: Anion Gap 15.2 mEq/L (5-15); Blood Urea Nitrogen 15 mg/dl (7-17); Calcium 10.3 mg/dl (8.4-10.2); Carbon Dioxide 22 mmol/L (22.0-30.0); Chloride 101 mmol/L (98-107); Creatinine Clearance Estimated 50 mL/min (50-200); Estimated Glomerular Filt Rate 98 ml/min (>60); GFR (African American) 119 ML/MIN (>60); Glucose 362 mg/dl (74-100); Potassium 4.2 mmoL/L (3.5-5.1); Sodium 134 mmol/L (136-145)
[2020-10-15 17:32] LABS: Basophils % 0.3 % (0.1-2.0); Eosinophils # 0.1 K/mm3 (0.0-0.4); Eosinophils % 1.2 % (0.1-12.0); Hematocrit 48.2 % (37.0-47.0); Hemoglobin 16.1 g/dL (12.2-16.2); Lymphocytes # 3.2 K/mm3 (0.7-4.5); Lymphocytes % 29.1 % (10-50); Mean Corpuscular HGB Conc 33.5 g/dL (31.8-35.4); Mean Corpuscular Hemoglobin 29.4 pg (27.0-31.2); Mean Corpuscular Volume 87.9 fl (81-99); Mean Platelet Volume 8.5 fl (7.4-10.4); Monocytes # 0.5 K/mm3 (0.1-1.0); Monocytes % 4.7 % (1.7-9.3); Neutrophils # 7.1 K/mm3 (1.8-7.8); Neutrophils % 64.6 % (37.0-80.0); Platelet Count 274 K/mm3 (142-424); Red Blood Count 5.48 M/mm3 (4.20-5.40); Red Cell Distribution Width 14.1 % (11.5-17.5); White Blood Count 10.9 K/mm3 (4.8-10.8)
[2020-10-15 17:38] LABS: INR 0.92 (0.9-1.1); Prothrombin Time 10.9 seconds (10.1-12.5)
[2020-10-15 17:46] LABS: Troponin I < 0.01 ng/ml (0.00-0.034)
[2020-10-15 18:44] LABS: NT Pro Brain Natriuretic Pep. 468 pg/mL (0-125)
--- NOTE | 2020-10-15 19:11 | PC.NURSE ---
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 kellogg
[2020-10-15 19:21] LABS: Adenovirus,PCR Not Detected (NotDetected); Bordetella Pertussis Not Detected (NotDetected); Chlamydophila Pneumoniae, PCR Not Detected (NotDetected); Coronavirus 19, PCR Not Detected (NotDetected); Coronavirus 229E Not Detected (NotDetected); Coronavirus NL63 Not Detected (NotDetected); Coronavirus OC43 Not Detected (NotDetected); Coronovirus HKU1,PCR Not Detected (NotDetected); Human Metapneumovirus Not Detected (NotDetected); Influenza A, PCR Not Detected (NotDetected); Influenza AH1, 2009 Not Detected (NotDetected); Influenza AH1, PCR Not Detected (NotDetected); Influenza AH3,PCR Not Detected (NotDetected); Influenza B, PCR Not Detected (NotDetected); Mycoplasma Pneumoniae, PCR Not Detected (NotDetected); Parainfluenza 1, PCR Not Detected (NotDetected); Parainfluenza 2, PCR Not Detected (NotDetected); Parainfluenza 3, PCR Not Detected (NotDetected); Parainfluenza 4, PCR Not Detected (NotDetected); Respiratory Syncytial Virus Not Detected (NotDetected); Rhinovirus/Enterovirus Not Detected (NotDetected)
--- NOTE | 2020-10-15 19:21 | PC.NURSE ---
received report from day nurse. discussed orders with md and was advised no new orders needed at this time.
--- NOTE | 2020-10-15 19:54 | PC.NURSE ---
speaking to dr. rueda at this time.
--- NOTE | 2020-10-15 20:01 | PC.NURSE ---
re-confirmed no new orders. pt currently on plavix and asa. no asa ordered during ed stay. no asa ordered, but allowed to place nitro paste for continued chest pressure.
[2020-10-15 20:04] LABS: Troponin I 0.04 ng/ml (0.00-0.034)
[2020-10-15 20:05] LABS: Microscopic, Urine URINE MICROSCOPIC (MICROSCOPIC)
[2020-10-15 20:07] LABS: Appearance,Urine CLEAR (Clear); Bilirubin,Urine Negative (Negative); Blood, Urine 1+ (Negative); Color,Urine YELLOW (Yellow); Glucose,Urine (UA) 3+ (Negative); Ketones,Urine 1+ (Negative); Leukocyte Esterase,Urine Negative (Negative); Nitrate,Urine Negative (Negative); Protein,Urine 3+ (Negative); Specific Gravity, Urine 1.025 (1.005-1.030); Urobilinogen,Urine 0.2 EU/dl (0.2)
[2020-10-15 20:53] LABS: Bacteria,Urine Trace /lpf; Squamous Epithelial Cell,Urine Occasional #/hpf (0-5); WBC,Urine Occasional #/hpf (0-3)
--- NOTE | 2020-10-15 21:58 | PC.NURSE ---
This RN spoke with pt and on status of bed. COVID swab has 40 min left according to lab. Pt understanding and states no needs at this time. Pt also reports chest pain has subsided since nitro paste applied.
--- NOTE | 2020-10-15 22:56 | PC.NURSE ---
PT ARRIVED TO FLOOR VIA W/C FROM ED W/STAFF AT [id number]
--- NOTE | 2020-10-15 23:30 | PC.NURSE ---
PT REPORTS SHE FEELS SHE HAS A UNKNOWN RASH ON HER RIGHT HAND. THE HAND IS PINK/RED IN COLOR, NO RAISED AREAS OR ITCHING NOTED.
[2020-10-16] VITALS (24 sets, daily range): BP systolic 122–190; BP diastolic 70–92; PULSE 76–104; RESP 16–18; TEMP 36.6–36.9; O2SAT 90–98; BMI 25.6
--- NOTE | 2020-10-16 | IR_ITS ---
APPROVED REPORT Patient Location: [facility] Contact Lens: ALEN Mcclain RT (R) PROCEDURES Left heart catheterization Left ventriculogram Selective coronary angiogram INDICATION Acute non-ST elevation myocardial infarction, Known coronary disease, Systolic congestive heart failure Informed consent was obtained prior to the procedure. COMPLICATIONS None Estimated Blood Loss: Less than 10 mls TECHNIQUE One percent lidocaine used to anesthetize the right anterior aspect of the wrist. The right radial artery was accessed via the Seldinger technique. A 6 Cypriot sheath was placed in the right radial artery. 2.5 mg of verapamil, 800 mcg of nitroglycerin, 1mg Lidocaine and 5000 U Heparin were given through the arterial sheath. The trap catheter was also used to perform left heart catheterization, left ventriculogram and selective coronary angiogram. At the end of the procedure the sheath was removed good hemostasis was achieved using Traclet band, patient was transferred to the postop holding area in stable condition. ANGIOGRAPHIC RESULTS The left main artery Has an ostial 20% stenosis The left anterior descending artery Has a stent the proximal segment widely patent free of in-stent restenosis with excellent proximal distal transitioning The circumflex artery Large codominant normal The right coronary artery Codominant normal The TAVERA ventriculogram reveals Dilated ventricle with anterior wall hypokinesis estimate ejection fraction 25 to 30% The left ventricular end-diastolic pressure Severely elevated at 30 to 35 mmHg IMPRESSION Widely patent coronary arteries as described above Previous anterior myocardial infarction with large regional wall motion abnormality and severely elevated LVEDP Type II myocardial infarction secondary to decompensated heart failure PLAN 1. Standard therapy for ischemic heart disease 2. Standard therapy for systolic congestive heart failure 3. Patient requires diuresis at this time due to the elevated LVEDP Electronically signed by : Jorgito Pollock, 10/16/2020 10:47:03
[2020-10-16 00:15] LABS: Troponin I 2.05 ng/ml (0.00-0.034)
--- NOTE | 2020-10-16 01:02 | PC.NURSE ---
DR HAIDER PAGED AT [phone] AD [phone] TO REPORT CRITICAL LAB. AWAITING CALL.
--- NOTE | 2020-10-16 02:28 | PC.NURSE ---
TROPONIN REPORTED TO MD HAIDER. NO NEW ORDERS.
--- NOTE | 2020-10-16 04:09 | PC.NURSE ---
PT HAS SLEPT WELL SINCE ARRIVAL TO FLOOR. NO C/O CP, SOA, N/V/D. PT AMBULATES INDEPENDENTLY IN ROOM. 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 VSS. CALL LIGHT WITHIN REACH. WILL CONT. TO MONITOR.
[2020-10-16 06:22] LABS: POC Glucose,Bedside 276 (70-110)
[2020-10-16 06:45] LABS: Basophils % 0.2 % (0.1-2.0); Eosinophils % 0.2 % (0.1-12.0); Hematocrit 49.7 % (37.0-47.0); Hemoglobin 16.3 g/dL (12.2-16.2); Lymphocytes # 2.4 K/mm3 (0.7-4.5); Lymphocytes % 16.7 % (10-50); Mean Corpuscular HGB Conc 32.8 g/dL (31.8-35.4); Mean Corpuscular Hemoglobin 29.3 pg (27.0-31.2); Mean Corpuscular Volume 89.5 fl (81-99); Mean Platelet Volume 8.4 fl (7.4-10.4); Monocytes # 0.7 K/mm3 (0.1-1.0); Monocytes % 5.2 % (1.7-9.3); Neutrophils % 77.8 % (37.0-80.0); Platelet Count 283 K/mm3 (142-424); Red Blood Count 5.55 M/mm3 (4.20-5.40); Red Cell Distribution Width 14.2 % (11.5-17.5); White Blood Count 14.1 K/mm3 (4.8-10.8)
[2020-10-16 06:57] LABS: Anion Gap 16.7 mEq/L (5-15); Blood Urea Nitrogen 13 mg/dl (7-17); Calcium 10.4 mg/dl (8.4-10.2); Carbon Dioxide 22 mmol/L (22.0-30.0); Chloride 102 mmol/L (98-107); Creatinine Clearance Estimated 55 mL/min (50-200); Estimated Glomerular Filt Rate 98 ml/min (>60); GFR (African American) 119 ML/MIN (>60); Glucose 343 mg/dl (74-100); Potassium 4.7 mmoL/L (3.5-5.1); Sodium 136 mmol/L (136-145)
--- NOTE | 2020-10-16 07:10 | ECG_ITS ---
APPROVED REPORT Exam: Resting ECG HR:90 bpm ECG Measurements Heart Rate 90 AXES ND 140 P 62 QRSd 138 QRS -35 QT 410 T 32 QTc 501 Conclusion Normal sinus rhythm Possible Left atrial enlargement Left axis deviation Nonspecific intraventricular block Nonspecific T wave abnormality Abnormal ECG Electronically signed by : Joni Corcoran, 10/17/2020 11:42:28
--- NOTE | 2020-10-16 07:27 | HMH.HP ---
*Admission Date: 10/15/20 *Chief complaint: Chest pressure *History of present illness: 75-year-old female was at home in her normal state of health when she developed a squeezing chest tightness in the center of her chest with associated squeezing and tight sensation in the left arm. She has chronic dyspnea. She denies diaphoresis. When symptoms did not improve she presented to the emergency department. Upon presenting to the emergency department in addition to her chest pressure she admitted she had not been taking her medications as described. She had been taking only her metoprolol and losartan in regards to antihypertensives and had not been taking many of her hyperglycemic medicines either. This is a recurring issue with the patient. Patient has history of coronary artery disease. She is observed in the ER and second troponin was abnormal. Patient was diagnosed with a non-STEMI and admitted for further observation. Third troponin minerva to greater than 2. This morning the patient is free of any chest tightness. She is surprised at the news that she has had a myocardial infarction. [facility] History I have reviewed the patient's past medical history: Yes Medical History: Reports:: Congestive Heart Failure, Coronary Artery Disease, Diabetes Mellitus Type 2, Gastroesophageal Reflux Disease(GERD), Hyperlipidemia, Hypertension, Internal Pacemaker, Renal Disease Denies:: Cancer, Diabetes Mellitus Type 1, MRSA, Seizures *Have you ever received a pneumonia vaccine?: No *Have you received a flu vaccine this season?: Yes Other Medical History: Denies: Blood Transfusion Reaction Laterality Cases: Bilateral: Tonsillectomy Other Surgeries: Yes: Cardiac Catheterization, Colonoscopy, Hysterectomy-Total, Pacemaker, Sinus Surgery, Other Amputation: No - *Social History Smoking Status: Never smoker Alcohol Intake: never Alcohol Intake Frequency:: other Substance Use Type: denies use *Occupational Status:: employed Housing: house Household Members: family, children *Travel in the last 8 weeks: None Family Hx:: No significant family history Review of Systems - Constitutional Denies anorexia, Denies body ache(s), Denies chills - Eyes Denies blurry vision, Denies irritation - ENT Denies abnormal hearing, Denies difficulty swallowing - *Cardiovascular Reports chest pain, Reports chest pain at rest, Reports shortness of breath with activity, Denies leg pain with activity - *Respiratory Denies change in phlegm color, Denies chest congestion, Denies cough - *Gastrointestinal Denies abdominal pain, Denies belching, Denies bloating - *Genitourinary Denies difficulty urinating - *Musculoskeletal Denies abnormal walking, Denies joint pain - *Neurologic Reports dizziness, Denies confusion Meds Home Medications Medication Instructions Recorded Confirmed Type aspirin 81 mg tablet,delayed 81 mg PO QDAY 08/03/17 10/15/20 History release budesonide-formoterol HFA 160 2 puff INHALATION BID g 08/03/17 10/15/20 History mcg-4.5 mcg/actuation aerosol inhaler gemfibrozil 600 mg tablet 600 mg PO BID 08/03/17 10/15/20 History metformin 1,000 mg tablet 1,000 mg PO BID 08/03/17 10/15/20 History omeprazole 20 mg capsule,delayed 20 mg PO QDAY 08/03/17 10/15/20 History release venlafaxine 75 mg tablet 75 mg PO QDAY tab 08/03/17 10/15/20 History trazodone 50 mg tablet 50 mg PO DAILY 04/04/18 10/15/20 History empagliflozin 25 mg tablet 25 mg PO DAILY 04/20/18 10/15/20 History linagliptin 5 mg tablet 5 mg PO DAILY 08/10/18 10/15/20 History cholecalciferol (vitamin D3) 25 1,000 unit PO DAILY 03/02/19 10/15/20 History mcg (1,000 unit) capsule clonidine HCl 0.1 mg tablet 0.1 mg PO QHS 03/02/19 10/15/20 History vitamin B complex 1 tab PO DAILY 03/02/19 10/15/20 History Atorvastatin Calcium [Lipitor 80mg 80 mg PO QHS 10/15/20 10/15/20 History Tablet*] Clopidogrel Bisulfate [Plavix 75mg 75 mg PO DAILY 10/15/20 10/15/20 History Tab]
--- NOTE | 2020-10-16 07:33 | CA_ITS ---
APPROVED REPORT EXAM: Comprehensive 2D, Doppler, and color-flow Echocardiogram [employer]: Eva Berrios RVT Ht: 5 ft 4 in Wt: 154lbs BSA: 1.75 BP: 152/81 mmHg Indications: NSTEMI,CM,AICD,HTN,HLD,DM.CAD,CHF TDS 2D Dimensions LVOT 1.79 cm (M/F) 1.5-2.5 M-Mode Dimensions RVDd 1.54 cm (0.9-2.6) LA Diam 3.64 cm (1.9-4.0) LVDd 5.47 cm (3.5-5.7) Ao Diam 2.38 cm (2.0-3.7) LVDs 4.04 cm (3.5-5.7) IVSd 1.22 cm (0.6-1.1) PWd 0.79 cm (0.6-1.1) EF (Teich) 50.80% EPSs 1.68 cm FS 26.10% EDV (Teich) 145.60 mL ESV (Teich) 71.70 mL LV Diastology MED E' 3.90 (< 7 cm/sec) LAT E' 5.90 (<10 cm/sec) Pulmonary Valve PV Peak Velocity 91.00 (50-150 cm/s) Tricuspid Valve TR P. Velocity 195.00 cm/s RAP Estimate 10.00 mmHg RVSP 25.20 mmHg Left Ventricle Left atrium is mildly enlarged, left ventricle is normal size, mild concentric left ventricular hypertrophy, visually estimated ejection fraction 35%, there is marked hypokinesis involving mid to distal septum, anterior and anterior apical wall. Diastolic parameters are inconclusive in the study. Right Ventricle Right atrium and right ventricle are normal size and contractility. There is an AICD lead seen in right ventricle. Aortic Valve Aortic valve is minimally thickened and fibrosed, there is no aortic stenosis or aortic insufficiency. Mitral Valve Mitral valve leaflets are minimally thickened, there is no mitral stenosis, there is mild mitral regurgitation. Tricuspid Valve Tricuspid valve is grossly normal, there is trace tricuspid regurgitation. Tricuspid regurgitation jet velocity is inadequate for calculation of the right ventricular systolic pressure. Pulmonic Valve Pulmonic valve is poorly visualized. Great Vessels Aortic root is normal size. Pericardium No significant pericardial effusion noted. Conclusion 1. Mildly enlarged left atrium, normal left ventricular size, mild concentric left ventricular hypertrophy, visually estimated ejection fraction 35% with segmental wall motion abnormality described above, diastolic parameters are inconclusive. 2. Mild mitral and trace tricuspid regurgitation. 3. No significant pericardial effusion noted. Electronically signed by : Link Monroe, 10/16/2020 12:51:34
--- NOTE | 2020-10-16 07:39 | HMH.PHAVTE ---
[facility] Pharmacy VTE Monitoring - Patient Demographics Admission date: 10/16/20 Report Date: 10/16/20 Time: 07:39 Allergies/Adverse Reactions: Patient Allergies No Known Allergies Allergy (Verified 08/12/20 10:47) Height: 1.65 m Weight: 69.853 kg Patient Problems: Current Active Problems Chest pain (Acute) Hypertensive urgency (Acute) Non-STEMI (non-ST elevated myocardial infarction) (Acute) Type 2 diabetes mellitus with hyperglycemia, without long-term current use of insulin (Acute) AICD (automatic cardioverter/defibrillator) present (Chronic) Non-ischemic cardiomyopathy (Chronic) Hypertension (Chronic) CAD (coronary artery disease) (Chronic) - VTE Risk Labs: VTE Related Lab Results Hgb 16.3 g/dL (12.2-16.2) H 10/16/20 06:13 Hct 49.7 % (37.0-47.0) H 10/16/20 06:13 Plt Count 283 K/mm3 (142-424) 10/16/20 06:13 PT 10.9 seconds (10.1-12.5) 10/15/20 17:01 INR 0.92 (0.9-1.1) 10/15/20 17:01 BUN 13 mg/dl (7-17) 10/16/20 06:13 Creatinine 0.60 mg/dl (0.52-1.04) 10/16/20 06:13 Estimated Creat Clear 55 mL/min (50-200) 10/16/20 06:13 Was VTE Risk Assessment Performed: No Clinical Trial Participant: No - Prophylaxis VTE Prophylaxis Ordered?: Yes Types of VTE Prophylaxis: IPCS Knee High
--- NOTE | 2020-10-16 08:52 | HMH.CNCARD ---
<Queta Cool - Last Filed: 10/16/20 08:52> History of Present Illness Consult date: 10/16/20 Requesting physician: Joni Bishop Consult reason: chest pain Chief complaint: chest pain History of present illness: This is a 75-year-old white female who states that she developed sudden onset chest tightness yesterday while she was at work. 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 She states that this radiated to her left arm and caused pain. She states that her chest tightness was associated with shortness of breath and nausea and diaphoresis. She states that she had no vomiting but felt like she could. She states the pain was a severe pain and nothing was worsening or helping to improve the pain. She states that the pain lasted for approximately 5 hours before she had any improvement with Nitropaste. The patient had stopped taking several of her medications but had continued on her metoprolol and losartan. She does have a history of coronary artery disease as well as cardiomyopathy and is status post AICD placement. Upon arrival to the emergency department for initial troponin was negative, her second troponin was 0.04 and her third troponin was 2.05 consistent with a non-ST elevation myocardial infarction. This morning the patient states that she is still having intermittent episodes of chest pain but this is improved with the nitro paste in place. She states that she is always short of breath. She denies any edema. She denies any fever, chills, nausea or vomiting today. She denies any PND, orthopnea or diarrhea. [facility] History I have reviewed the patient's past medical history: Yes Medical History: Reports:: Congestive Heart Failure, Coronary Artery Disease, Diabetes Mellitus Type 2, Gastroesophageal Reflux Disease(GERD), Hyperlipidemia, Hypertension, Internal Pacemaker, Renal Disease Denies:: Cancer, Diabetes Mellitus Type 1, MRSA, Seizures *Have you ever received a pneumonia vaccine?: No *Have you received a flu vaccine this season?: Yes Other Medical History: Denies: Blood Transfusion Reaction Laterality Cases: Bilateral: Tonsillectomy Other Surgeries: Yes: Cardiac Catheterization, Colonoscopy, Hysterectomy-Total, Pacemaker, Sinus Surgery, Other Amputation: No - *Social History Smoking Status: Never smoker Alcohol Intake: never Alcohol Intake Frequency:: other Substance Use Type: denies use *Occupational Status:: employed Housing: house Household Members: family, children *Travel in the last 8 weeks: None Family Hx:: No significant family history Meds Home Medications Medication Instructions Recorded Confirmed Type aspirin 81 mg tablet,delayed 81 mg PO DAILY 08/03/17 10/16/20 History release budesonide-formoterol HFA 160 2 puff INHALATION BID g 08/03/17 10/15/20 History mcg-4.5 mcg/actuation aerosol inhaler gemfibrozil 600 mg tablet 600 mg PO BID 08/03/17 10/15/20 History metformin 1,000 mg tablet 1,000 mg PO BID 08/03/17 10/15/20 History omeprazole 20 mg capsule,delayed 20 mg PO DAILY 08/03/17 10/16/20 History release venlafaxine 75 mg tablet 75 mg PO DAILY tab 08/03/17 10/16/20 History trazodone 50 mg tablet 50 mg PO HS 04/04/18 10/16/20 History empagliflozin 25 mg tablet 25 mg PO DAILY 04/20/18 10/15/20 History linagliptin 5 mg tablet 5 mg PO DAILY 08/10/18 10/15/20 History cholecalciferol (vitamin D3) 25 1,000 unit PO DAILY 03/02/19 10/15/20 History mcg (1,000 unit) capsule clonidine HCl 0.1 mg tablet 0.1 mg PO HS 03/02/19 10/16/20 History vitamin B complex 1 tab PO DAILY 03/02/19 10/15/20 History Atorvastatin Calcium [Lipitor 80mg 80 mg PO HS 10/15/20 10/16/20 History Tablet*] Clopidogrel Bisulfate [Plavix 75mg 75 mg PO DAILY 10/15/20 10/15/20 History Tab] Furosemide [Furosemide 20mg Tab*] 20 mg PO DAILY 10/15/20 10/16/20 History Losartan Potassium [Cozaar 100mg 100 mg PO DAILY 10/15/20 10/16/20 History Tablets*
[2020-10-16 10:17] LABS: Chol/HDL Ratio 8.2 (1-3.5); Cholesterol 279 mg/dl (140-200); HDL Cholesterol 34 mg/dl (40-60); Triglycerides 446 mg/dl (30-150)
[2020-10-16 10:28] LABS: Direct LDL Cholesterol 176.35 mg/dL (100-129)
--- NOTE | 2020-10-16 10:41 | HMH.PHAINT ---
verified home medication list using lists from [facility] pharmacy and Dr Bishop' office. Pt not compliant with medications, Dr Bishop requested the list reflect what she SHOULD take, not what she DOES take
--- NOTE | 2020-10-16 12:49 | PC.NURSE ---
attempted to take 2ml of air from tracelet but bleeding noticed
[2020-10-16 13:11] LABS: POC Glucose,Bedside 341 (70-110)
[2020-10-16 16:54] LABS: POC Glucose,Bedside 429 (70-110)
--- NOTE | 2020-10-16 19:40 | PC.NURSE ---
patient has done well this shift. independent in room. vitals have been stable. no complaints or any pain. was slightly drowsy earlier in shift after procedure. has sat up in chair. telfa and tegaderm applied to r wrist cath site. no signs of hematoma drainage or bleeding.
--- NOTE | 2020-10-16 20:55 | PC.NURSE ---
finger stick was 578, stat glucose ordered and counselor [employer] notified
[2020-10-16 21:32] LABS: Glucose,Random 649 mg/dL (74-100)
[2020-10-16 21:44] LABS: POC Glucose,Bedside 578 (70-110)
--- NOTE | 2020-10-16 22:40 | PC.NURSE ---
pt reported feeling funny and thought her blood sugar had dropped, FSBS rechecked and was 516, down from last FSBS of 578, pt educated on s/s of hypoglycemia
[2020-10-16 22:46] LABS: POC Glucose,Bedside 516 (70-110)
[2020-10-17] VITALS: BP 127/71; PULSE 87; PULSE 91; RESP 16; TEMP 36.8; O2SAT 94
[2020-10-17 01:35] LABS: POC Glucose,Bedside 387 (70-110)
--- NOTE | 2020-10-17 01:47 | PC.NURSE ---
0128 FSBS rechecked at this time and was 387
[2020-10-17 04:00] VITALS: BP 121/82; PULSE 103; RESP 16; TEMP 36.8; O2SAT 97
--- NOTE | 2020-10-17 04:27 | PC.NURSE ---
pt is AxO4, has ambulated in room and to bathroom independently, right radial cath site with dressing in place, C/D/I, has had no complaints of SOA or chest pain this shift, HR has been 87-104, FSBS at 2100 was 578, serum glucose was 649, child nutrition assistant dr notified and ordered 20 units of insulin at that time and changed intensity of sliding scale insulin to high, rechecked at 2238 and was 516, rechecked at 0128 and was 387, pt was educated again on s/s of hypoglycemia
[2020-10-17 05:00] VITALS: BMI 24.3
[2020-10-17 06:13] LABS: POC Glucose,Bedside 425 (70-110)
[2020-10-17 06:39] LABS: Basophils # 0.1 K/mm3 (0-0.2); Basophils % 0.4 % (0.1-2.0); Hematocrit 55.9 % (37.0-47.0); Lymphocytes # 3.2 K/mm3 (0.7-4.5); Lymphocytes % 18.2 % (10-50); Mean Corpuscular HGB Conc 32.7 g/dL (31.8-35.4); Mean Corpuscular Hemoglobin 29.3 pg (27.0-31.2); Mean Corpuscular Volume 89.6 fl (81-99); Mean Platelet Volume 8.2 fl (7.4-10.4); Monocytes % 5.7 % (1.7-9.3); Neutrophils # 13.2 K/mm3 (1.8-7.8); Neutrophils % 75.6 % (37.0-80.0); Platelet Count 316 K/mm3 (142-424); Red Blood Count 6.24 M/mm3 (4.20-5.40); Red Cell Distribution Width 14.2 % (11.5-17.5); White Blood Count 17.5 K/mm3 (4.8-10.8)
[2020-10-17 06:43] LABS: Anion Gap 17.9 mEq/L (5-15); Blood Urea Nitrogen 22 mg/dl (7-17); Calcium 10.4 mg/dl (8.4-10.2); Carbon Dioxide 23 mmol/L (22.0-30.0); Chloride 94 mmol/L (98-107); Creatinine Clearance Estimated 52 mL/min (50-200); Estimated Glomerular Filt Rate 61 ml/min (>60); GFR (African American) 74 ML/MIN (>60); Potassium 3.9 mmoL/L (3.5-5.1); Sodium 131 mmol/L (136-145)
[2020-10-17 06:58] LABS: MANUAL DIFFERENTIAL MANUAL DIFFERENTIAL (MANUAL DIFF)
[2020-10-17 07:02] LABS: Glucose 463 mg/dl (74-100)
--- NOTE | 2020-10-17 07:15 | HMH.ACPN2 ---
Internal Medicine - PN: Subj *Date: 10/17/20 *Time: 07:15 Interval history: Patient underwent left heart catheterization yesterday. She did not require any stenting. Patient had decreased ejection fraction of 35% with increased LVEDP. Patient was started on IV Lasix to diurese until creatinine begins to rise. Patient reports feeling very weak this morning. She has been making frequent trips to the bathroom to urinate. Overnight blood sugars were were elevated requiring escalation in her sliding scale intensity Exam Vital signs and Labs for Last 24 Hours: Temp Pulse Resp BP Pulse Ox 98.3 F 103 H 16 121/82 97 10/17/20 04:00 10/17/20 04:00 10/17/20 04:00 10/17/20 04:00 10/17/20 04:00 Laboratory Results - last 24 hr 10/16/20 06:13: Triglycerides 446 H, Cholesterol 279 H, LDL Cholesterol Direct 176.35 H, HDL Cholesterol 34 L, Cholesterol/HDL Ratio 8.2 H 10/16/20 11:31: POC Glucose 341 H* 10/16/20 16:34: POC Glucose 429 H* 10/16/20 20:53: POC Glucose 578 H* 10/16/20 21:04: Random Glucose 649 H* 10/16/20 22:38: POC Glucose 516 H* 10/17/20 01:28: POC Glucose 387 H* 10/17/20 05:48: POC Glucose 425 H* 10/17/20 06:15: WBC 17.5 H, RBC 6.24 H, Hct 55.9 H, MCV 89.6, MCH 29.3, MCHC 32.7, RDW 14.2, Plt Count 316, MPV 8.2, Neut % (Auto) 75.6, Lymph % (Auto) 18.2, [place] % (Auto) 5.7, Eos % (Auto) 0.0 L, Baso % (Auto) 0.4, Neut # (Auto) 13.2 H, Lymph # (Auto) 3.2, [place] # (Auto) 1.0, Eos # (Auto) 0.0, Baso # (Auto) 0.1 10/17/20 06:15: Sodium 131 L, Potassium 3.9, Chloride 94 L, Carbon Dioxide 23, Anion Gap 17.9 H, BUN 22 H D, Creatinine 0.90 D, Estimated Creat Clear 52, Estimated GFR 61, Est GFR ( Amer) 74 D, Glucose 463 H*, Calcium 10.4 H I & O for Last 24 hours: Intake & Output 10/14/20 10/15/20 10/16/20 10/17/20 11:59 11:59 11:59 11:59 Intake Total 0 / 0 600 / 600 Balance 0 / 0 600 / 600 Weight 154 lb 146 lb 1 oz - Constitutional no acute distress - *Routine Respiratory Exam Present: CTA bilaterally - *Routine Cardiovascular Exam Present: RRR - *Routine Abdominal Exam Present: soft, normoactive bowel sounds. Absent: tenderness Assessment and Plan (1) Non-STEMI (non-ST elevated myocardial infarction) Status: Acute Category: Medical Code(s): I21.4 - Non-ST elevation (NSTEMI) myocardial infarction (2) AICD (automatic cardioverter/defibrillator) present Status: Chronic Category: Surgical Code(s): Z95.810 - Presence of automatic (implantable) cardiac defibrillator (3) CAD (coronary artery disease) Problem details: Status: Chronic Qualifiers: Coronary Disease-Associated Artery/Lesion type: [place] artery [place] vs. transplanted heart: [place] heart Associated angina: without angina Qualified Code(s): I25.10 - Atherosclerotic heart disease of [place] coronary artery without angina pectoris Category: Medical Code(s): I25.10 - Atherosclerotic heart disease of [place] coronary artery without angina pectoris (4) Hypertension Status: Chronic Qualifiers: Hypertension type: essential hypertension Qualified Code(s): I10 - Essential (primary) hypertension Category: Medical Code(s): I10 - Essential (primary) hypertension (5) Type 2 diabetes mellitus with hyperglycemia, without long-term current use of insulin Status: Acute Category: Medical Code(s): E11.65 - Type 2 diabetes mellitus with hyperglycemia (6) Non-ischemic cardiomyopathy Status: Chronic Category: Medical Code(s): I42.8 - Other cardiomyopathies (7) Hyperlipidemia Status: Chronic Qualifiers: Hyperlipidemia type: mixed hyperlipidemia Qualified Code(s): E78.2 - Mixed hyperlipidemia Category: Medical Code(s): E78.5 - Hyperlipidemia, unspecified (8) Dyspnea Status: Chronic Qualifiers: Dyspnea type: shortness of breath Qualified Code(s): R06.02 - Shortness of breath Category: Medical Code(s): R06.00 - Dyspnea, unspecified - Assessment and pl
[2020-10-17 08:00] VITALS: BP 114/69; PULSE 100; PULSE 110; RESP 20; TEMP 36.7; O2SAT 97
[2020-10-17 09:00] LABS: Lymphocytes % 27 % (10-50); Monocytes % 5 % (2-9); Neutrophils % 68 % (42-76); Platelet Estimate Normal; RBC Morphology Normal; Total Cells Counted 100
[2020-10-17 10:26] LABS: Hemoglobin 18.3 g/dL (12.2-16.2)
[2020-10-17 10:47] VITALS: BMI 24.2
[2020-10-17 10:49] LABS: POC Glucose,Bedside 544 (70-110)
--- NOTE | 2020-10-17 11:01 | DIET.NUTRFU ---
Nutritional assessment, IP/consult completed. Pt given diet education/counseling for heart healthy/low sodium consistent carbohydrate diet. Pt with prior poor understanding/compliance with diet related recommendations. Pt voices understanding and with good motivation to make diet/lifestyle changes. She has been strongly encouraged to f/u through OP counseling.
[2020-10-17 11:17] LABS: Glucose,Random 480 mg/dL (74-100)
[2020-10-17 12:00] VITALS: PULSE 94
--- NOTE | 2020-10-17 12:11 | HMH.PNCARD ---
Subjective Date: 10/17/20 Time: 12:11 Principal diagnosis: NSTEMI Interval history: 75-year-old white female sitting in bedside chair in no acute distress. She does relate some fatigue due to the frequent urination after starting IV Lasix yesterday. She has had some leg cramps during this hospitalization. Patient denies any lower extremity edema and does admit that she did not take her Lasix or diuretics at home because she did not notice any lower extremity edema. Answer questions regarding congestive heart failure and the use of her ICD as a monitoring tool for fluid status. Exam Vital signs and Labs for Last 24 Hours: Temp Pulse Resp BP Pulse Ox 98.0 F 110 H 20 114/69 97 10/17/20 08:00 10/17/20 08:00 10/17/20 08:00 10/17/20 08:00 10/17/20 08:00 Laboratory Results - last 24 hr 10/16/20 11:31: POC Glucose 341 H* 10/16/20 16:34: POC Glucose 429 H* 10/16/20 20:53: POC Glucose 578 H* 10/16/20 21:04: Random Glucose 649 H* 10/16/20 22:38: POC Glucose 516 H* 10/17/20 01:28: POC Glucose 387 H* 10/17/20 05:48: POC Glucose 425 H* 10/17/20 06:15: WBC 17.5 H, RBC 6.24 H, Hgb 18.3 H*, Hct 55.9 H, MCV 89.6, MCH 29.3, MCHC 32.7, RDW 14.2, Plt Count 316, MPV 8.2, Neut % (Auto) 75.6, Lymph % (Auto) 18.2, [place] % (Auto) 5.7, Eos % (Auto) 0.0 L, Baso % (Auto) 0.4, Neut # (Auto) 13.2 H, Lymph # (Auto) 3.2, [place] # (Auto) 1.0, Eos # (Auto) 0.0, Baso # (Auto) 0.1, Total Counted 100, Neutrophils % (Manual) 68, Lymphocytes % (Manual) 27, Monocytes % (Manual) 5, Platelet Estimate Normal, RBC Morphology Normal 10/17/20 06:15: Sodium 131 L, Potassium 3.9, Chloride 94 L, Carbon Dioxide 23, Anion Gap 17.9 H, BUN 22 H D, Creatinine 0.90 D, Estimated Creat Clear 52, Estimated GFR 61, Est GFR ( Amer) 74 D, Glucose 463 H*, Calcium 10.4 H 10/17/20 10:41: POC Glucose 544 H* 10/17/20 10:59: Random Glucose 480 H* D I & O for Last 24 hours: Intake & Output 10/15/20 10/16/20 10/17/20 10/18/20 11:59 11:59 11:59 11:59 Intake Total 0 / 0 840 / 840 Output Total 600 / 600 Balance 0 / 0 240 / 240 Weight 154 lb 145 lb 8.081 oz - Constitutional no acute distress - *Routine HEENT Exam Head: Present: normocephalic Eye: Present: EOMI, PERRL ENT: Present: mucous membranes moist - *Routine Neck Exam Present: supple. Absent: lymphadenopathy - *Routine Respiratory Exam Present: rales Comments: Basilar rales noted right greater than left. - *Routine Cardiovascular Exam Present: RRR - *Routine Abdominal Exam Present: soft, normoactive bowel sounds. Absent: tenderness - *Routine Extremities Exam Absent: cyanosis, clubbing, edema - *Routine Skin Exam Present: warm. Absent: rash - *Routine Neurological Exam Present: alert, oriented X3 Progress Note: A&P (1) Non-STEMI (non-ST elevated myocardial infarction) Status: Acute (2) AICD (automatic cardioverter/defibrillator) present Status: Chronic (3) CAD (coronary artery disease) Problem details: Status: Chronic (4) Hypertension Status: Chronic (5) Type 2 diabetes mellitus with hyperglycemia, without long-term current use of insulin Status: Acute (6) Non-ischemic cardiomyopathy Status: Chronic (7) Hyperlipidemia Status: Chronic (8) Dyspnea Status: Chronic (9) Systolic congestive heart failure with reduced left ventricular function, NYHA class 1 Status: Acute Assessment and Plan for All Diagnoses:: Patient can be discharged home today with the following home medication recommendations: Metoprolol tartrate 50 mg twice daily Losartan 50 mg daily Furosemide 40 mg daily Spironolactone 50 mg daily Aspirin 81 mg daily Clopidogrel 75 mg daily Atorvastatin 80 mg daily Gemfibrozil 600 mg twice daily Jardiance 25 mg daily Other medications per Dr. Bishop Follow-up in our office in 1 week and recommend that patient be off work until follow-up.
--- NOTE | 2020-10-17 13:42 | HMH.PHAINT ---
10/17/20-CONTACTED MD ABOUT DISCHARGE MEDICATIONS LISTED FROM THIS AM AND RECOMMENDATIONS FROM CARDIOLOGY. MD WANTS TO SEND PATIENT HOME ON MEDS LISTED FROM THIS AM.
--- NOTE | 2020-10-18 08:46 | HMH.DCSUM ---
General - General Admission date:: 10/15/20 Discharge date: 10/18/20 HPI HPI: 75-year-old female was at home in her normal state of health when she developed a squeezing chest tightness in the center of her chest with associated squeezing and tight sensation in the left arm. She has chronic dyspnea. She denies diaphoresis. When symptoms did not improve she presented to the emergency department. Upon presenting to the emergency department in addition to her chest pressure she admitted she had not been taking her medications as described. She had been taking only her metoprolol and losartan in regards to antihypertensives and had not been taking many of her hyperglycemic medicines either. This is a recurring issue with the patient. Patient has history of coronary artery disease. She is observed in the ER and second troponin was abnormal. Patient was diagnosed with a non-STEMI and admitted for further observation. Third troponin minerva to greater than 2. This morning the patient is free of any chest tightness. She is surprised at the news that she has had a myocardial infarction. Hospital Course Hospital Course: Patient was admitted and troponin minerva. Cardiology was consulted. Patient underwent left heart catheterization on October 16 without finding of obstructive disease. She was found to have elevated left ventricular end-diastolic pressure. Decision was made to diurese with IV Lasix. Patient had excellent response to diuretics although did report profound weakness. Medication adjustments were made and patient was discharged on the . Objective Vital signs: Temp Pulse Resp BP Pulse Ox 98.0 F 94 H 20 114/69 97 10/17/20 08:00 10/17/20 12:00 10/17/20 08:00 10/17/20 08:00 10/17/20 08:00 Results Labs on day of discharge: Labs from last 24 hours 10/17/20 10/17/20 10/17/20 10:59 10:41 06:15 Hgb 18.3 H* Total Counted 100 Neutrophils % (Manual) 68 Lymphocytes % (Manual) 27 Monocytes % (Manual) 5 Platelet Estimate Normal RBC Morphology Normal POC Glucose 544 H* Random Glucose 480 H* D DS: Diagnosis - Discharge Diagnosis (1) Non-STEMI (non-ST elevated myocardial infarction) Status: Acute (2) AICD (automatic cardioverter/defibrillator) present Status: Chronic (3) CAD (coronary artery disease) Status: Chronic Problem details: (4) Hypertension Status: Chronic (5) Type 2 diabetes mellitus with hyperglycemia, without long-term current use of insulin Status: Acute (6) Non-ischemic cardiomyopathy Status: Chronic (7) Hyperlipidemia Status: Chronic (8) Dyspnea Status: Chronic (9) Systolic congestive heart failure with reduced left ventricular function, NYHA class 1 Status: Acute Discharge Plan - Patient Discharge Instructions ACTIVITY: Continue current activity DIET: continue same diet Patient Instructions: High Cholesterol, Heart Attack, Cardiac Catheterization, Malignant Hypertension, DI for Shortness of Breath, DI for Hyperglycemia -- Adult, DI for Surgical Site Infection, DI for Chest Pain - Follow up Plan Follow up with: Jorgito Pollock MD [Staff Physician] - 10/24/20 10:30 am Joni Bishop MD [Staff Physician] - 10/20/20 1:15 pm Disposition: Home, Self-Retirement Medications: Home Medications Medication Instructions Recorded Confirmed Type aspirin 81 mg tablet,delayed 81 mg PO DAILY 08/03/17 10/18/20 History release budesonide-formoterol HFA 160 2 puff INHALATION BID g 08/03/17 10/18/20 History mcg-4.5 mcg/actuation aerosol inhaler gemfibrozil 600 mg tablet 600 mg PO BID 08/03/17 10/18/20 History metformin 1,000 mg tablet 1,000 mg PO BID 08/03/17 10/18/20 History omeprazole 20 mg capsule,delayed 20 mg PO DAILY 08/03/17 10/18/20 History release venlafaxine 75 mg tablet 75 mg PO HS tab 08/03/17 10/18/20 History trazodone 50 mg tablet 50 mg PO HS PRN 04/04/18 10/18/20 H
== END 2020-10-17 13:40 | disposition home or self-care (01) | DRG 280 ==
LOC: ER 20:06 → 2ND 21:29
PROVIDERS: Internal Medicine; Nurse Practitioner Family; Admitting Provider Internal Medicine Adolescent Medicine; Emergency Provider Family Medicine; PCP Nurse Practitioner Family; Visit Provider Family Medicine
PROC: 4A023N7 Measurement of Cardiac Sampling and Pressure, Left Heart, Percutaneous Approach (ICD-10-PCS; principal; 2020-10-16 11:45)
DX: I21.4 Non-ST elevation (NSTEMI) myocardial infarction (principal); I50.23 Acute on chronic systolic (congestive) heart failure; I42.8 Other cardiomyopathies; I25.10 Atherosclerotic heart disease of native coronary artery without angina pectoris; I11.0 Hypertensive heart disease with heart failure; Z79.84 Long term (current) use of oral hypoglycemic drugs; E11.9 Type 2 diabetes mellitus without complications; Z95.810 Presence of automatic (implantable) cardiac defibrillator; E78.5 Hyperlipidemia, unspecified; Z79.899 Other long term (current) drug therapy
CPT/HCPCS: 36415; 71045; 80048; 80061; 81001; 82947; 82962; 83880; 84484; 85007; 85025; 85610; 87581; 87633; 87798; 93005; 93306; 93458; 96365; 99152; 99283; C1725; C1769; J1644; Q9967

== ENCOUNTER 2020-10-17 21:17 | Inpatient (IN) | payer MEDICARE, OTHER, SELFPAY ==
--- NOTE | 2020-10-17 21:07 | ECG_ITS ---
APPROVED REPORT Exam: Resting ECG HR:94 bpm ECG Measurements Heart Rate 94 AXES NH 142 P 57 QRSd 140 QRS -61 QT 428 T 111 QTc 535 Conclusion Normal sinus rhythm Possible Left atrial enlargement Left axis deviation Left bundle branch block Abnormal ECG Electronically signed by : Joni Corcoran, 10/18/2020 07:09:44
[2020-10-17 21:19] VITALS: BP 122/74; PULSE 93; RESP 16; TEMP 36.7; O2SAT 96; BMI 25.6
--- NOTE | 2020-10-17 21:31 | XR_ITS ---
PROCEDURE: XR CHEST 2V CLINICAL HISTORY: near syncope COMPARISON: DX CXR2V XR chest 2V from 05/24/2018 CR XR CHEST PORTABLE from 05/09/2019 CR XR CHEST PORTABLE from 10/15/[address] ANGIO CHEST from 10/18/2020 FINDINGS: Normal heart size. Pacemaker is present as recently described with 2 leads in the region of the right root trickle and 1 lead in the region the right atrium. Coronary artery stent noted. The lungs are clear without infiltrates, suspicious nodules, or pleural effusions. Degenerative changes thoracic spine IMPRESSION: No acute findings. Dictated by: Zachary Stone MD 10/18/2020 07:40 Zachary Stone MD in [place] 10/18/2020 07:40
--- NOTE | 2020-10-17 21:43 | HMH.EDSYNC ---
ED Disposition Clinical Impression: Type 2 diabetes mellitus with hyperglycemia, without long-term current use of insulin, AICD (automatic cardioverter/defibrillator) present, Elevated left ventricular end-diastolic pressure (LVEDP), Renal insufficiency, Elevated troponin, AICD discharge, Atrial fib/flutter, transient, Hypomagnesemia Cardiac arrhythmia Qualifiers: Arrhythmia type: unspecified cardiac arrhythmia Qualified Code(s): I49.9 - Cardiac arrhythmia, unspecified Disposition: Admitted as Observation Condition on Discharge: Fair - Critical Care Critical Care Time: No Attestation: On 10/17/20, the high probability of a clinically significant, sudden or life threatening deterioration of the following system(s) required my full and direct attention, intervention and personal management. The time I documented below is in addition to time spent performing reported procedures but includes the following listed in this critical care notation. Medical Decision Making - Medical Records Medical records reviewed: Yes: I reviewed the patient's medical records. - Alberto Inquiry Pt receiving controlled substance: No Vital Signs: 10/17/20 21:19 10/17/20 23:19 10/17/20 23:30 Temperature 98.1 F Temperature Source Oral Pulse Rate 87 89 Pulse Rate [Right] 93 H Respiratory Rate 16 Blood Pressure Blood Pressure [Right Arm] 122/74 Blood Pressure Mean Blood Pressure Mean [Right Arm] 90 Blood Pressure Source [Right Arm] Automatic Cuff Blood Pressure Position [Right Arm] Supine 02 Sat by Pulse Oximetry 96 97 98 Oxygen Delivery Method Room Air 10/18/20 00:00 10/18/20 00:15 10/18/20 00:25 Temperature Temperature Source Pulse Rate 94 H 98 H 101 H Pulse Rate [Right] Respiratory Rate Blood Pressure 121/72 Blood Pressure [Right Arm] Blood Pressure Mean 85 Blood Pressure Mean [Right Arm] Blood Pressure Source [Right Arm] Blood Pressure Position [Right Arm] 02 Sat by Pulse Oximetry 96 96 97 Oxygen Delivery Method 10/18/20 00:30 10/18/20 00:45 10/18/20 01:00 Temperature Temperature Source Pulse Rate 105 H 109 H 109 H Pulse Rate [Right] Respiratory Rate 14 Blood Pressure 112/93 H 122/69 Blood Pressure [Right Arm] Blood Pressure Mean 97 86 Blood Pressure Mean [Right Arm] Blood Pressure Source [Right Arm] Blood Pressure Position [Right Arm] 02 Sat by Pulse Oximetry 97 98 97 Oxygen Delivery Method 10/18/20 01:15 10/18/20 01:25 10/18/20 01:30 Temperature Temperature Source Pulse Rate 102 H 111 H 105 H Pulse Rate [Right] Respiratory Rate 19 22 20 Blood Pressure 113/83 126/77 Blood Pressure [Right Arm] Blood Pressure Mean 90 85 Blood Pressure Mean [Right Arm] Blood Pressure Source [Right Arm] Blood Pressure Position [Right Arm] 02 Sat by Pulse Oximetry 91 L 95 95 Oxygen Delivery Method 10/18/20 01:35 10/18/20 01:40 10/18/20 01:45 Temperature Temperature Source Pulse Rate 129 H 104 H 121 H Pulse Rate [Right] Respiratory Rate 12 21 22 Blood Pressure 133/77 137/88 127/69 Blood Pressure [Right Arm] Blood Pressure Mean 95 104 112 Blood Pressure Mean [Right Arm] Blood Pressure Source [Right Arm] Blood Pressure Position [Right Arm] 02 Sat by Pulse Oximetry 96 94 L 95 Oxygen Delivery Method 10/18/20 01:50 10/18/20 01:56 10/18/20 02:00 Temperature Temperature Source Pulse Rate 122 H 138 H 134 H Pulse Rate [Right] Respiratory Rate 24 20 19 Blood Pressure 126/77 148/96 H 142/91 H Blood Pressure [Right Arm] Blood Pressure Mean 93 107 100 Blood Pressure Mean [Right Arm] Blood Pressure Source [Right Arm] Blood Pressure Position [Right Arm] 02 Sat by Pulse Oximetry 96 99 90 L Oxygen Delivery Method 10/18/20 02:05 10/18/20 02:10 10/18/20 02:15 Temperature Temperature Source Pulse Rate 134 H 100 H 77 Pulse Rate [Right] Respiratory Rate
[2020-10-17 22:20] LABS: Basophils # 0.1 K/mm3 (0-0.2); Basophils % 0.3 % (0.1-2.0); Eosinophils % 0.2 % (0.1-12.0); Hematocrit 53.4 % (37.0-47.0); Hemoglobin 17.7 g/dL (12.2-16.2); Lymphocytes # 2.3 K/mm3 (0.7-4.5); Lymphocytes % 14.1 % (10-50); Mean Corpuscular HGB Conc 33.2 g/dL (31.8-35.4); Mean Corpuscular Hemoglobin 29.5 pg (27.0-31.2); Mean Corpuscular Volume 88.8 fl (81-99); Mean Platelet Volume 8.1 fl (7.4-10.4); Monocytes # 0.8 K/mm3 (0.1-1.0); Neutrophils # 12.9 K/mm3 (1.8-7.8); Neutrophils % 80.4 % (37.0-80.0); Platelet Count 228 K/mm3 (142-424); Red Blood Count 6.01 M/mm3 (4.20-5.40); Red Cell Distribution Width 14.2 % (11.5-17.5); White Blood Count 16.1 K/mm3 (4.8-10.8)
[2020-10-17 22:26] LABS: MANUAL DIFFERENTIAL MANUAL DIFFERENTIAL (MANUAL DIFF)
--- NOTE | 2020-10-17 22:30 | PC.NURSE ---
Critical Troponin called by lab and relayed to Dr Kim
[2020-10-17 22:31] LABS: Alanine Aminotransferase 39 U/L (12-78); Albumin Level 4.4 g/dl (3.5-5.0); Alkaline Phosphatase 134 U/L (38-126); Anion Gap 15.2 mEq/L (5-15); Aspartate Amino Transferase 54 U/L (14-36); Bilirubin,Direct 0.1 mg/dl (0.0-0.4); Bilirubin,Indirect 0.8 mg/dL (0.0-0.9); Bilirubin,Total 0.9 mg/dl (0.2-1.3); Bilirubin,Unconjugated 0.9 mg/dL (0.0-1.1); Blood Urea Nitrogen 33 mg/dl (7-17); Calcium 9.7 mg/dl (8.4-10.2); Carbon Dioxide 27 mmol/L (22.0-30.0); Chloride 94 mmol/L (98-107); Creatinine Clearance Estimated 50 mL/min (50-200); Estimated Glomerular Filt Rate 49 ml/min (>60); GFR (African American) 59 ML/MIN (>60); Glucose 372 mg/dl (74-100); Potassium 3.2 mmoL/L (3.5-5.1); Sodium 133 mmol/L (136-145); Total Protein,Serum 7.9 g/dl (6.3-8.2)
[2020-10-17 22:32] LABS: Lymphocytes % 18 % (10-50); Monocytes % 1 % (2-9); Neutrophils % 80 % (42-76); Platelet Estimate Normal; RBC Morphology Normal; Total Cells Counted 100
[2020-10-17 22:36] LABS: C-Reactive Protein 19.9 mg/L (0-4)
[2020-10-17 22:50] LABS: Procalcitonin 0.136 ng/mL (0.0-2.0)
[2020-10-17 22:52] LABS: Troponin I 7.84 ng/ml (0.00-0.034)
[2020-10-17 23:16] LABS: Adenovirus,PCR Not Detected (NotDetected); Bordetella Pertussis Not Detected (NotDetected); Chlamydophila Pneumoniae, PCR Not Detected (NotDetected); Coronavirus 19, PCR Not Detected (NotDetected); Coronavirus 229E Not Detected (NotDetected); Coronavirus NL63 Not Detected (NotDetected); Coronavirus OC43 Not Detected (NotDetected); Coronovirus HKU1,PCR Not Detected (NotDetected); Human Metapneumovirus Not Detected (NotDetected); Influenza A, PCR Not Detected (NotDetected); Influenza AH1, 2009 Not Detected (NotDetected); Influenza AH1, PCR Not Detected (NotDetected); Influenza AH3,PCR Not Detected (NotDetected); Influenza B, PCR Not Detected (NotDetected); Mycoplasma Pneumoniae, PCR Not Detected (NotDetected); Parainfluenza 1, PCR Not Detected (NotDetected); Parainfluenza 2, PCR Not Detected (NotDetected); Parainfluenza 3, PCR Not Detected (NotDetected); Parainfluenza 4, PCR Not Detected (NotDetected); Respiratory Syncytial Virus Not Detected (NotDetected); Rhinovirus/Enterovirus Not Detected (NotDetected)
[2020-10-17 23:19] VITALS: PULSE 87; O2SAT 97
[2020-10-17 23:30] VITALS: PULSE 89; O2SAT 98
[2020-10-18] VITALS (54 sets, daily range): BP systolic 70–148; BP diastolic 30–98; PULSE 70–148; RESP 12–24; TEMP 36.7–36.9; O2SAT 90–99; BMI 25.4
--- NOTE | 2020-10-18 00:36 | PC.NURSE ---
Dr Kim just finished speaking with Dr Pollock and is speaking with Dr Corcoran at this time
[2020-10-18 01:07] LABS: Troponin I 6.88 ng/ml (0.00-0.034)
--- NOTE | 2020-10-18 01:56 | ECG_ITS ---
APPROVED REPORT Exam: Resting ECG HR:142 bpm ECG Measurements Heart Rate 142 AXES IL P 258 QRSd 130 QRS -62 QT 360 T 125 QTc 553 Conclusion Atrial flutter with variable AV block Left axis deviation Left bundle branch block Abnormal ECG Electronically signed by : Joni Corcoran, 10/18/2020 07:09:29
--- NOTE | 2020-10-18 02:00 | PC.NURSE ---
speaking with Maris at this time.
--- NOTE | 2020-10-18 02:04 | CT_ITS ---
PROCEDURE: CT ANGIO CHEST CLINCIAL INDICATION: Syncope, recent surgery, heart disease COMPARISON: No exams were available for comparison TECHNIQUE: IV Contrast: 70ML Isovue 370 Axial images obtained with sagittal and coronal reformats. All CT scans at the facility use one or more dose reduction, viz: automated exposure control, ma/kV adjustment per patient size (including targeted exams where dose is matched to indication, i.e. head), or iterative reconstruction technique. FINDINGS: HEART AND MEDIASTINAL STRUCTURES: No evidence of pulmonary embolus. Coronary artery stent present. No mediastinal. There are few small mediastinal lymph nodes nonspecific. Artifact is present cardiac pacemaker device. The generator is present within the anterior left hemithorax. LUNGS AND PLEURAL SPACES: 3 mm noncalcified nodule in the right minor fissure. 3 mm noncalcified right upper lobe nodule image 43 series 3, calcified granuloma right upper lobe. Atelectatic change within the lingula. BONY STRUCTURES: Degenerative changes thoracic spine UPPER ABDOMEN: Fatty liver. 18 mm hypodensity right hepatic lobe nonspecific possibly due to cyst ADDITIONAL FINDINGS: No other significant abnormalities. IMPRESSION: No acute finding. No evidence of pulmonary embolus. Additional nonacute findings as described above. 3 mm right upper lobe nodule. Consider annual follow-up. Dictated by: Zachary Stone MD 10/18/2020 08:37 Zachary Stone MD in [facility] 10/18/2020 08:37
[2020-10-18 02:21] LABS: Magnesium 1.3 mg/dl (1.6-2.3)
--- NOTE | 2020-10-18 02:31 | PC.NURSE ---
Pt to CT with this RN on portable monitor from 0231 to 024
--- NOTE | 2020-10-18 02:54 | PC.NURSE ---
Mag order per Akhil in Pharmacy
--- NOTE | 2020-10-18 03:07 | ECG_ITS ---
APPROVED REPORT Exam: Resting ECG HR:104 bpm ECG Measurements Heart Rate 104 AXES AK 138 P 57 QRSd 138 QRS -66 QT 394 T 94 QTc 518 Conclusion Electronic ventricular pacemaker Electronically signed by : Joni Corcoran, 10/18/2020 07:09:16
[2020-10-18 03:12] LABS: Amphetamine/Metha Screen,Urine Negative ng/ml (<1000)
[2020-10-18 03:13] LABS: Barbiturates Screen,Urine Negative ng/ml (<200); Benzodiazepines Screen,Urine Positive ng/ml (<200)
[2020-10-18 03:14] LABS: Cannabinoid Screen,Urine Negative ng/ml (<50)
[2020-10-18 03:15] LABS: Cocaine Screen,Urine Negative ng/ml (<300); Methadone Screen,Urine Negative ng/ml (<300)
[2020-10-18 03:16] LABS: Opiate Screen,Urine Negative ng/ml (<300)
[2020-10-18 03:17] LABS: Phencyclidine Screen,Urine Negative ng/ml (<25)
[2020-10-18 04:28] LABS: Troponin I 5.99 ng/ml (0.00-0.034)
[2020-10-18 04:35] LABS: Basophils % 0.2 % (0.1-2.0); Eosinophils % 0.2 % (0.1-12.0); Hematocrit 48.6 % (37.0-47.0); Lymphocytes # 2.3 K/mm3 (0.7-4.5); Lymphocytes % 12.4 % (10-50); Mean Corpuscular HGB Conc 32.1 g/dL (31.8-35.4); Mean Corpuscular Volume 90.4 fl (81-99); Mean Platelet Volume 8.2 fl (7.4-10.4); Monocytes # 0.9 K/mm3 (0.1-1.0); Monocytes % 4.8 % (1.7-9.3); Neutrophils % 82.4 % (37.0-80.0); Platelet Count 251 K/mm3 (142-424); Red Blood Count 5.38 M/mm3 (4.20-5.40); Red Cell Distribution Width 14.4 % (11.5-17.5); White Blood Count 18.2 K/mm3 (4.8-10.8)
--- NOTE | 2020-10-18 04:35 | PC.NURSE ---
patient up to floor via stretcher.
[2020-10-18 04:36] LABS: Hemoglobin 15.6 g/dL (12.2-16.2)
[2020-10-18 04:41] LABS: Chloride 97 mmol/L (98-107); Sodium 131 mmol/L (136-145)
[2020-10-18 04:42] LABS: Potassium 3.7 mmoL/L (3.5-5.1)
[2020-10-18 04:44] LABS: Anion Gap 11.7 mEq/L (5-15); Blood Urea Nitrogen 28 mg/dl (7-17); Carbon Dioxide 26 mmol/L (22.0-30.0); Creatinine Clearance Estimated 55 mL/min (50-200); Estimated Glomerular Filt Rate 61 ml/min (>60); GFR (African American) 74 ML/MIN (>60)
[2020-10-18 04:45] LABS: Calcium 8.9 mg/dl (8.4-10.2)
[2020-10-18 04:46] LABS: Glucose 403 mg/dl (74-100); Magnesium 2.4 mg/dl (1.6-2.3)
--- NOTE | 2020-10-18 06:19 | PC.NURSE ---
shift summary received patient to floor, attached to desk monitor. telemetry has shown sr in the 90s since arrival to floor. denies any pain, nausea, vomiting or dizziness. has remained in bed resting since arrival. breath sounds clear throughout all rushing, o2 sats mid 90s on r/a, patient o2 sats will drop down to 81% on r/a while sleeping, episode lasts 5-10 seconds then returns back to mid 90s. right radial cath site c,d,i. glucose on lab work at 0430 was 403, treated with sliding scale insulin. amiodarone currently infusing at 1mg/min x 6 hours, rate should be dropped to 0.5 mg/min at 0700
--- NOTE | 2020-10-18 07:22 | ECG_ITS ---
APPROVED REPORT Exam: Resting ECG HR:147 bpm ECG Measurements Heart Rate 147 AXES QRSd 134 QRS -66 QT 344 T 152 QTc 538 Conclusion Atrial flutter with variable AV block Left axis deviation Left bundle branch block Abnormal ECG Electronically signed by : Joni Corcoran, 10/18/2020 18:17:22
--- NOTE | 2020-10-18 08:01 | PC.NURSE ---
0722 - Pt sitting up on side of bed, HR increased to 130-150 and sustaining. Nursing checked on pt, who stated that she felt fine. EKG obtained per written protocol. Pt helped back in bed and instructed to on vagal manuever, HR did decrease for 1-5 seconds and immediately increased back to 140-150's. EKG taken down to Dr. Kim in ED for interpretation. MD seen pt in ED when she was admitted and states this is no change from her rhythm in the ED. States to consult Dr. Pollock via phone, and gives okay for metoprolol tartrate 25 mg PO AM dose to be given early. 0756 - Dr. Pollock paged. 0757 - Dr. Pollock returned paged and updated on pt. Telephone orders for additional 50 mg of Metoprol Tartrate PO to be given. BP @ this time is 106/67 HR is 130's, Dr. Pollock aware. Pt currently resting in bed. Denies chest pain or SOA.
--- NOTE | 2020-10-18 08:14 | PC.NURSE ---
0705 - Per protocol Amio gtt decreased to 0.5 mg/min
--- NOTE | 2020-10-18 08:22 | HMH.HP ---
*Admission Date: 10/18/20 *Chief complaint: Syncope *History of present illness: 75-year-old female with recent hospitalization for non-STEMI and decompensating congestive heart failure return home yesterday afternoon and felt well. Patient reports she had been on her home only a short period of time when she felt palpitations soon followed by discharge of her AICD. Family was present and noticed the patient looked pale and shortly thereafter patient passed out. Injury was prevented by family member standing directly behind her who was able to catch her as she lost consciousness. Patient was brought to the emergency department. In the ER serial EKGs were performed with at least one showing atrial flutter. Patient's troponin had risen. The ER physician contacted Dr. Pollock. They recommended observation admission and patient was loaded with amiodarone and is currently on an amiodarone drip. She has not had any further discharge of her AICD. She denies chest pain. She remains in atrial flutter with a rate of 130 [facility]H History I have reviewed the patient's past medical history: Yes Medical History: Reports:: Arrhythmia, Atrial Fibrillation, Congestive Heart Failure, Coronary Artery Disease, Diabetes Mellitus Type 2, Gastroesophageal Reflux Disease(GERD), Hyperlipidemia, Hypertension, Internal Pacemaker, Myocardial Infarction, Renal Disease Denies:: Cancer, Diabetes Mellitus Type 1, MRSA, Seizures *Have you ever received a pneumonia vaccine?: Yes *Have you received a flu vaccine this season?: Yes Other Medical History: Denies: Blood Transfusion Reaction Laterality Cases: Bilateral: Tonsillectomy Other Surgeries: Yes: Cardiac Catheterization, Colonoscopy, Hysterectomy-Total, Pacemaker, Sinus Surgery, Other Amputation: No - *Social History Smoking Status: Never smoker Alcohol Intake: never Alcohol Intake Frequency:: other Substance Use Type: denies use *Occupational Status:: employed Housing: house Household Members: family, children *Travel in the last 8 weeks: None Family Hx:: No significant family history Review of Systems - Constitutional Denies anorexia, Denies body ache(s), Denies lack of energy - ENT Denies abnormal hearing, Denies difficulty swallowing - *Cardiovascular Reports shortness of breath with activity (Chronic), Denies chest pain, Denies chest pain at rest, Denies chest pain with activity - *Respiratory Reports shortness of breath (Chronic), Denies change in phlegm color, Denies chest congestion - *Gastrointestinal Denies abdominal pain, Denies belching, Denies loose stools - *Genitourinary Denies difficulty urinating, Denies side pain - *Musculoskeletal Reports back pain, Denies abnormal walking, Denies joint pain - *Neurologic Reports fainting, Denies headache(s), Denies tingling/numbness/burning sensations, Denies seizure-like activity Meds Home Medications Medication Instructions Recorded Confirmed Type aspirin 81 mg tablet,delayed 81 mg PO DAILY 08/03/17 10/18/20 History release budesonide-formoterol HFA 160 2 puff INHALATION BID g 08/03/17 10/18/20 History mcg-4.5 mcg/actuation aerosol inhaler gemfibrozil 600 mg tablet 600 mg PO BID 08/03/17 10/18/20 History metformin 1,000 mg tablet 1,000 mg PO BID 08/03/17 10/18/20 History omeprazole 20 mg capsule,delayed 20 mg PO DAILY 08/03/17 10/18/20 History release venlafaxine 75 mg tablet 75 mg PO HS tab 08/03/17 10/18/20 History trazodone 50 mg tablet 50 mg PO HS PRN 04/04/18 10/18/20 History empagliflozin 25 mg tablet 25 mg PO DAILY 04/20/18 10/18/20 History linagliptin 5 mg tablet 5 mg PO DAILY 08/10/18 10/18/20 History cholecalciferol (vitamin D3) 25 1,000 unit PO DAILY 03/02/19 10/18/20 History mcg (1,000 unit) capsule vitamin B complex 1 tab PO DAILY 03/02/19 10/18/20 History Clopidogrel Bisulfate [Plavix 75mg 75 mg PO DAILY 10/15/20 10/18/20 History Tab] Metoprolol Tartrate [Lopressor 25 mg PO BID 10/15/20 10/18/20
--- NOTE | 2020-10-18 11:28 | HMH.PHAINT ---
HOME MEDICATIONS RECONCILED FROM RECENT [facility] DISCHARGE LIST.
[2020-10-18 11:58] LABS: POC Glucose,Bedside 450 (70-110)
[2020-10-18 17:11] LABS: POC Glucose,Bedside 380 (70-110)
--- NOTE | 2020-10-18 18:10 | PC.NURSE ---
No acute changes this shift. Pt denies CP or being SOA. Pt did become hypotensive and control panel tester physician was notified, orders received and carried out (see provider notification). VS have remained stable since that time. Sinus on tely, rate has been in the 70's. She remains on room air w/ no s/s of resp distress. SPO2 ranging low to mid 90's. Noted that when pt is in a deep sleep her sat does drop from time to time to upper 80's but recovers quickly. Lungs CTA. Abdomen soft, non-tender w/ active BS in all quads. No edema noted. Skin intact. R Radial cath site c/d/i. Ambulates w/ standby assistance to bathroom, tolerates activity well. Voiding w/o difficulty. Pt has had 3 BM's this shift. Has ate the majority of her meal trays. FSBS continue to be elevated, insulin given per MAR. Family have been at bedside majority of day visiting. She is currently resting. No complaints voiced. Call nathan w/in reach. Amio infusing @ 0.5 mg/min.
[2020-10-18 21:07] LABS: POC Glucose,Bedside 280 (70-110)
[2020-10-19] VITALS (12 sets, daily range): BP systolic 85–127; BP diastolic 44–70; PULSE 60–200; RESP 16–22; TEMP 36.6; O2SAT 92–98; BMI 26.3
--- NOTE | 2020-10-19 04:54 | PC.NURSE ---
shift summary patient manager monitoring has shown sr 60s to 80s throughout night with occasional pvcs. has denies any fluttering in chest. sbp drops while sleeping, manual blood pressure taken with systolic in 90s and map greater than 65. patient awoke easily and remained alert and oriented while taking bp. amiodarone dipr stopped at 0100 after receiving po dose. has had multiple episodes of diarrhea which she states is normal for her when her ulcerative colitis flairs up, note left on board to remind patient to discuss with dr. kellogg. patient educated on lantus and administering insulin for discharge.
--- NOTE | 2020-10-19 05:39 | PC.NURSE ---
instructed patient on humalog insulin sliding scale as well as administering with syringe. patient administered insulin independently with rn supervision. tolerated well.
[2020-10-19 05:42] LABS: POC Glucose,Bedside 273 (70-110)
[2020-10-19 06:39] LABS: Chloride 104 mmol/L (98-107); Potassium 4.3 mmoL/L (3.5-5.1); Sodium 134 mmol/L (136-145)
[2020-10-19 06:42] LABS: Anion Gap 7.3 mEq/L (5-15); Blood Urea Nitrogen 33 mg/dl (7-17); Calcium 8.7 mg/dl (8.4-10.2); Carbon Dioxide 27 mmol/L (22.0-30.0); Creatinine Clearance Estimated 57 mL/min (50-200); Estimated Glomerular Filt Rate 61 ml/min (>60); GFR (African American) 74 ML/MIN (>60); Glucose 262 mg/dl (74-100)
[2020-10-19 06:44] LABS: Magnesium 1.6 mg/dl (1.6-2.3)
--- NOTE | 2020-10-19 08:25 | HMH.ACPN2 ---
Internal Medicine - PN: Subj *Date: 10/19/20 *Time: 08:25 Interval history: Patient tolerated amiodarone drip yesterday, converted over to p.o. at 200 mg twice daily last night. Did have some episodes of lower blood pressure after converting to sinus rhythm and I did administer a 500 mL normal saline fluid bolus which seemed to resolve the problem and she feels great this morning. Exam Vital signs and Labs for Last 24 Hours: Temp Pulse Resp BP Pulse Ox 97.8 F 81 22 116/57 L 97 10/19/20 04:00 10/19/20 08:00 10/19/20 08:00 10/19/20 08:00 10/19/20 08:00 Laboratory Results - last 24 hr 10/18/20 11:43: POC Glucose 450 H* 10/18/20 16:49: POC Glucose 380 H* 10/18/20 20:06: POC Glucose 280 H 10/19/20 05:24: POC Glucose 273 H 10/19/20 05:55: Sodium 134 L, Potassium 4.3, Chloride 104, Carbon Dioxide 27, Anion Gap 7.3, BUN 33 H, Creatinine 0.90, Estimated Creat Clear 57, Estimated GFR 61, Est GFR ( Amer) 74, Glucose 262 H, Calcium 8.7, Magnesium 1.6 D I & O for Last 24 hours: Intake & Output 10/16/20 10/17/20 10/18/20 10/19/20 11:59 11:59 11:59 11:59 Intake Total 1440 / 1440 1334 / 1334 Output Total 100 / 100 1000 / 1000 Balance 1340 / 1340 334 / 334 Weight 152 lb 8 oz 158 lb 2 oz Narrative: Patient awake, alert, sitting on the side of the bed, oriented x3. Heart rate regular. Telemetry monitoring shows left bundle branch block but regular rhythm. Abdomen soft, no edema, lungs clear. Neurologically intact Assessment and Plan (1) Atrial fib/flutter, transient Status: Acute Category: Medical (2) AICD discharge Status: Acute Category: Medical Code(s): Z45.02 - Encounter for adjustment and management of automatic implantable cardiac defibrillator (3) Elevated left ventricular end-diastolic pressure (LVEDP) Status: Acute Category: Medical Code(s): R94.30 - Abnormal result of cardiovascular function study, unspecified (4) Hypomagnesemia Status: Acute Category: Medical Code(s): E83.42 - Hypomagnesemia (5) Left ventricular systolic dysfunction, NYHA class 3 Status: Acute Category: Medical Code(s): I51.9 - Heart disease, unspecified - Assessment and plan all Dx Assessment and Plan for all problems:: On p.o. amiodarone. Watch blood pressure carefully. Titrate magnesium and amiodarone per cardiology tomorrow. Possible discharge tomorrow?
[2020-10-19 10:56] LABS: POC Glucose,Bedside 286 (70-110)
[2020-10-19 16:59] LABS: POC Glucose,Bedside 300 (70-110)
--- NOTE | 2020-10-19 17:53 | PC.NURSE ---
Addendum entered by Esther Barragan RN 10/19/20 18:20: Pt showered this shift, tolerated activity well. Original Note: Pt states that she is feeling more herself today and not nearly as weak as she was yesterday. She remains on room air. Lungs CTA. SR on tely w/ occasional PVC's, 70-80. Denies CP or SOA. Abdomen soft, non-tender w/ active BS in all quads. Voiding w/o difficulty. Continues to have loose stools r/t UC. Ambulates independently w/o safety concerns. Tolerating activity well. She has been up to chair majority of shift. No complaints voiced. Call nathan w/in reach. She has given both of her insulin injections herself w/ nurse supervision, continuing to do well.
--- NOTE | 2020-10-19 20:41 | PC.NURSE ---
instructed patient on insulin administration. patient administered own sliding scale insulin and lantus insulin with rn supervision and instruction. patient done well. concerns and questions addressed
[2020-10-19 20:48] LABS: POC Glucose,Bedside 258 (70-110)
[2020-10-20] VITALS: BP 109/62; PULSE 70; PULSE 75; RESP 16; TEMP 36.8; O2SAT 96
--- NOTE | 2020-10-20 02:51 | PC.NURSE ---
2200 patient ambulated in hallway without incident. monitoring coordinator showed sr in the 70s during activity.
--- NOTE | 2020-10-20 02:52 | PC.NURSE ---
patient reported feeling differently since about bedtime, c/o slight nausea. treated with zofran. patient questioned if new medication amiodarone could be causing it.
[2020-10-20 03:17] VITALS: BP 114/63; PULSE 72; RESP 17; TEMP 36.7; O2SAT 98
--- NOTE | 2020-10-20 03:27 | PC.NURSE ---
on re-evaluation after medication given for nausea. patient states she feels 100% better. admits that she is feeling somewhat anxious about going on after episode prior to admission. states she will be at her house [place] by herself and is a little worried about it. allowed patient for express concerns and answered any questions.
[2020-10-20 04:00] VITALS: PULSE 70
[2020-10-20 05:11] VITALS: BMI 26.2
[2020-10-20 05:56] LABS: POC Glucose,Bedside 247 (70-110)
[2020-10-20 06:48] LABS: Basophils % 0.2 % (0.1-2.0); Eosinophils # 0.1 K/mm3 (0.0-0.4); Eosinophils % 0.9 % (0.1-12.0); Hematocrit 43.4 % (37.0-47.0); Lymphocytes # 2.1 K/mm3 (0.7-4.5); Lymphocytes % 20.8 % (10-50); Mean Corpuscular HGB Conc 32.4 g/dL (31.8-35.4); Mean Corpuscular Hemoglobin 29.2 pg (27.0-31.2); Mean Corpuscular Volume 90.2 fl (81-99); Mean Platelet Volume 8.4 fl (7.4-10.4); Monocytes # 0.5 K/mm3 (0.1-1.0); Monocytes % 4.7 % (1.7-9.3); Neutrophils # 7.5 K/mm3 (1.8-7.8); Neutrophils % 73.4 % (37.0-80.0); Platelet Count 243 K/mm3 (142-424); Red Blood Count 4.81 M/mm3 (4.20-5.40); Red Cell Distribution Width 14.1 % (11.5-17.5); White Blood Count 10.2 K/mm3 (4.8-10.8)
--- NOTE | 2020-10-20 07:02 | HMH.DCSUM ---
General - General Admission date:: 10/18/20 Discharge date: 10/20/20 HPI HPI: 75-year-old female with recent hospitalization for non-STEMI and decompensating congestive heart failure return home yesterday afternoon and felt well. Patient reports she had been on her home only a short period of time when she felt palpitations soon followed by discharge of her AICD. Family was present and noticed the patient looked pale and shortly thereafter patient passed out. Injury was prevented by family member standing directly behind her who was able to catch her as she lost consciousness. Patient was brought to the emergency department. In the ER serial EKGs were performed with at least one showing atrial flutter. Patient's troponin had risen. The ER physician contacted Dr. Pollock. They recommended observation admission and patient was loaded with amiodarone and is currently on an amiodarone drip. She has not had any further discharge of her AICD. She denies chest pain. She remains in atrial flutter with a rate of 130 Hospital Course Hospital Course: Patient was admitted and placed on amiodarone drip. On the afternoon of the the patient converted to sinus rhythm. Patient finished her amiodarone drip and was converted to oral amiodarone under the direction of Dr. Pollock. Patient remained in sinus rhythm the remainder of hospitalization. Electrolyte imbalances were corrected including low magnesium. Patient did develop some nausea, the cause of which is unclear, that was successfully treated with Zofran. Patient was discharged home on October 20 and will follow-up in my office on the . Follow-up with cardiology service per their instructions Objective Vital signs: Temp Pulse Resp BP Pulse Ox 98.0 F 70 17 114/63 98 10/20/20 03:17 10/20/20 04:00 10/20/20 03:17 10/20/20 03:17 10/20/20 03:17 Results Labs on day of discharge: Labs from last 24 hours 10/20/20 10/20/20 10/19/20 05:47 05:44 20:16 WBC 10.2 D RBC 4.81 Hgb 14.0 Hct 43.4 MCV 90.2 MCH 29.2 MCHC 32.4 RDW 14.1 Plt Count 243 MPV 8.4 Neut % (Auto) 73.4 Lymph % (Auto) 20.8 [place] % (Auto) 4.7 Eos % (Auto) 0.9 Baso % (Auto) 0.2 Neut # (Auto) 7.5 Lymph # (Auto) 2.1 [place] # (Auto) 0.5 Eos # (Auto) 0.1 Baso # (Auto) 0.0 POC Glucose 247 H 258 H 10/19/20 10/19/20 16:34 10:49 WBC RBC Hgb Hct MCV MCH MCHC RDW Plt Count MPV Neut % (Auto) Lymph % (Auto) [place] % (Auto) Eos % (Auto) Baso % (Auto) Neut # (Auto) Lymph # (Auto) [place] # (Auto) Eos # (Auto) Baso # (Auto) POC Glucose 300 H 286 H DS: Diagnosis - Discharge Diagnosis (1) Atrial fib/flutter, transient Status: Acute (2) AICD discharge Status: Acute (3) Elevated left ventricular end-diastolic pressure (LVEDP) Status: Acute (4) Hypomagnesemia Status: Acute (5) Left ventricular systolic dysfunction, NYHA class 3 Status: Acute Discharge Plan - Patient Discharge Instructions ACTIVITY: Continue current activity DIET: continue same diet Patient Instructions: Arrhythmias, DI for Automatic Cardioverter/Defibrillator Implantation - Follow up Plan Follow up with: Joni Bishop MD [Primary Care Provider] - 10/22/20 Disposition: Home, Self-[facility] Medications: Home Medications Medication Instructions Recorded Confirmed Type aspirin 81 mg tablet,delayed 81 mg PO DAILY 08/03/17 10/18/20 History release budesonide-formoterol HFA 160 2 puff INHALATION BID g 08/03/17 10/18/20 History mcg-4.5 mcg/actuation aerosol inhaler metformin 1,000 mg tablet 1,000 mg PO BID 08/03/17 10/18/20 History omeprazole 20 mg capsule,delayed 20 mg PO DAILY 08/03/17 10/18/20 History release venlafaxine 75 mg tablet 75 mg PO HS tab 08/03/17 10/18/20 History trazodone 50 mg tablet 50 mg PO HS PRN 04/04/18 10/18/20 History
[2020-10-20 07:10] LABS: Anion Gap 11.5 mEq/L (5-15); Blood Urea Nitrogen 26 mg/dl (7-17); Carbon Dioxide 25 mmol/L (22.0-30.0); Chloride 101 mmol/L (98-107); Creatinine Clearance Estimated 56 mL/min (50-200); Estimated Glomerular Filt Rate 54 ml/min (>60); GFR (African American) 66 ML/MIN (>60); Glucose 249 mg/dl (74-100); Potassium 4.5 mmoL/L (3.5-5.1); Sodium 133 mmol/L (136-145)
[2020-10-20 08:00] VITALS: BP 118/64; PULSE 80; PULSE 81; RESP 16; TEMP 36.8; O2SAT 97
--- NOTE | 2020-10-20 08:17 | HMH.CNCARD ---
History of Present Illness Consult date: 10/20/20 Requesting physician: Joni Bishop Chief complaint: A-Flutter, converted History of present illness: 75-year-old female admitted to [facility] with /Atrial flutter/Atrial fibrillation with RVR. Patient had been recently discharged the day before postop STEMI and decompensating congestive heart failure. Patient stated she had a syncopal episode and her AICD had discharged x1. AICD discharged x2 in the ED. Patient denies chest pain, tightness or pressure. Patient denies shortness of breath with exertion. Patient denies fever. Patient stated prior to having this episode of her AICD firing she did become very nauseated. Patient states she does stay nauseated. This is managed by PCP. While patient was in the ED, patient did convert over to sinus rhythm with a controlled heart rate. Patient was started on amiodarone 200 mg twice daily p.o. This seems to be controlling the atrial fib/ atrial flutter. Vital signs are stable. Patient states she is feeling so much better. Patient does have uncontrolled diabetes. This is under the management of PCP. AICD was interrogated this a.m. It was noted that patient was shocked 3 times due to heart rate being near 200 bpm. AICD noticed this as V. tach and therefore shocked patient. Patient was noted to have atrial fibrillation with RVR. Discussed this with Dr. Pollock and pacemaker rep. Patient will be set up for pacemaker clinic in October to interrogate as to whether the V rate parameters need to be increased. Echo:Conclusion 1. Mildly enlarged left atrium, normal left ventricular size, mild concentric left ventricular hypertrophy, visually estimated ejection fraction 35% with segmental wall motion abnormality described above, diastolic parameters are inconclusive. 2. Mild mitral and trace tricuspid regurgitation. 3. No significant pericardial effusion noted. Discussed plan of care with Dr. Pollock and PCP. AICD was interrogated this a.m. It was noted that AICD discharged due to high ventricular rates. High heart rate was noted as atrial fibrillation RVR. Patient is now in a sinus rhythm with a controlled heart rate. Patient will be started on metoprolol 50 mg twice daily for heart rate and BP control. Patient started on amiodarone 200 mg twice daily for rate control. Patient is to follow-up in cardiology clinic in 1 week. Patient is to follow-up in pacemaker clinic in October for interrogation of the AICD. Thank you for allowing cardiology to participate in the care of this patient. [facility] History I have reviewed the patient's past medical history: Yes Medical History: Reports:: Arrhythmia, Atrial Fibrillation, Congestive Heart Failure, Coronary Artery Disease, Diabetes Mellitus Type 2, Gastroesophageal Reflux Disease(GERD), Hyperlipidemia, Hypertension, Internal Pacemaker, Myocardial Infarction, Renal Disease Denies:: Cancer, Diabetes Mellitus Type 1, MRSA, Seizures *Have you ever received a pneumonia vaccine?: Yes *Have you received a flu vaccine this season?: Yes Other Medical History: Denies: Blood Transfusion Reaction Laterality Cases: Bilateral: Tonsillectomy Other Surgeries: Yes: Cardiac Catheterization, Colonoscopy, Hysterectomy-Total, Pacemaker, Sinus Surgery, Other Amputation: No - *Social History Smoking Status: Never smoker Alcohol Intake: never Alcohol Intake Frequency:: other Substance Use Type: denies use *Occupational Status:: employed Housing: house Household Members: family, children *Travel in the last 8 weeks: None Family Hx:: No significant family history Meds Home Medications Medication Instructions Recorded Confirmed Type aspirin 81 mg tablet,delayed 81 mg PO DAILY 08/03/17 10/18/20 History release budesonide-formoterol HFA 160 2 puff INHALATION BID g 08/03/17 10/18/20 History mcg-4.5 mcg/actuation aerosol inhaler metformin 1,000 mg tablet 1,000 mg PO BID 08/03/17 10/18/20 History omeprazole 20
[2020-10-20 11:28] LABS: POC Glucose,Bedside 288 (70-110)
== END 2020-10-20 11:50 | disposition home or self-care (01) | DRG 280 ==
LOC: ER 21:21 → 2ND 10-18 01:50
PROVIDERS: Admitting Provider Internal Medicine Adolescent Medicine; Emergency Provider Emergency Medicine; PCP Family Medicine; Visit Provider Family Medicine
DX: I48.92 Unspecified atrial flutter (principal); I21.4 Non-ST elevation (NSTEMI) myocardial infarction; I50.23 Acute on chronic systolic (congestive) heart failure; I11.0 Hypertensive heart disease with heart failure; I42.8 Other cardiomyopathies; Z95.810 Presence of automatic (implantable) cardiac defibrillator; I25.10 Atherosclerotic heart disease of native coronary artery without angina pectoris; I48.91 Unspecified atrial fibrillation; E83.42 Hypomagnesemia; Z79.899 Other long term (current) drug therapy
CPT/HCPCS: 36415; 71046; 71275; 80048; 80076; 80305; 82962; 83735; 84145; 84484; 85007; 85025; 86140; 87581; 87633; 87798; 93005; 96365; 96367; 99284; J0282; J2405; J7060; Q9967

== ENCOUNTER → 2020-11-03 13:47 | Outpatient (CLI) | payer MEDICARE, OTHER, SELFPAY ==
[2020-11-03 15:38] LABS: Free Thyroxine Index 3.2 ug/dL (5.93-13.13); T4 (Thyroxine) 9.8 ug/dl (5.53-11.0); Triiodothryronine (T3) Uptake 33 % (23.5-40.5)
[2020-11-03 15:51] LABS: Thyroid Stimulating Hormone 5.47 uIU/mL (0.465-4.68)
[2020-11-03 16:43] LABS: Alanine Aminotransferase 42 U/L (12-78); Albumin Level 4.7 g/dl (3.5-5.0); Alkaline Phosphatase 142 U/L (38-126); Anion Gap 17.4 mEq/L (5-15); Aspartate Amino Transferase 47 U/L (14-36); Bilirubin,Direct 0.1 mg/dl (0.0-0.4); Bilirubin,Indirect 0.3 mg/dL (0.0-0.9); Bilirubin,Total 0.4 mg/dl (0.2-1.3); Bilirubin,Unconjugated 0.3 mg/dL (0.0-1.1); Blood Urea Nitrogen 23 mg/dl (7-17); Carbon Dioxide 23 mmol/L (22.0-30.0); Chloride 102 mmol/L (98-107); Estimated Glomerular Filt Rate 49 ml/min (>60); GFR (African American) 59 ML/MIN (>60); Glucose 179 mg/dl (74-100); Potassium 4.4 mmoL/L (3.5-5.1); Sodium 138 mmol/L (136-145); Total Protein,Serum 7.6 g/dl (6.3-8.2)
== END ==
PROVIDERS: Visit Provider Internal Medicine Cardiovascular Disease
DX: E78.2 Mixed hyperlipidemia (principal); I10 Essential (primary) hypertension; I25.10 Atherosclerotic heart disease of native coronary artery without angina pectoris; R06.02 Shortness of breath; Z95.810 Presence of automatic (implantable) cardiac defibrillator; Z79.899 Other long term (current) drug therapy
CPT/HCPCS: 36415; 80048; 80076; 84436; 84443; 84479

== ENCOUNTER → 2021-01-02 10:50 | Outpatient (CLI) | payer MEDICARE, OTHER, SELFPAY ==
[2021-01-02 12:11] LABS: Anion Gap 19.1 mEq/L (5-15); Blood Urea Nitrogen 28 mg/dl (7-17); Calcium 10.2 mg/dl (8.4-10.2); Carbon Dioxide 29 mmol/L (22.0-30.0); Chloride 97 mmol/L (98-107); Estimated Glomerular Filt Rate 49 ml/min (>60); GFR (African American) 59 ML/MIN (>60); Glucose 110 mg/dl (74-100); Potassium 4.1 mmoL/L (3.5-5.1); Sodium 141 mmol/L (136-145)
[2021-01-02 12:32] LABS: Basophils % 0.3 % (0.1-2.0); Eosinophils # 0.1 K/mm3 (0.0-0.4); Eosinophils % 1.1 % (0.1-12.0); Hematocrit 44.3 % (37.0-47.0); Hemoglobin 15.1 g/dL (12.2-16.2); Lymphocytes # 2.4 K/mm3 (0.7-4.5); Lymphocytes % 19.8 % (10-50); Mean Corpuscular HGB Conc 34.1 g/dL (31.8-35.4); Mean Corpuscular Hemoglobin 30.5 pg (27.0-31.2); Mean Corpuscular Volume 89.6 fl (81-99); Mean Platelet Volume 8.3 fl (7.4-10.4); Monocytes # 0.6 K/mm3 (0.1-1.0); Monocytes % 5.1 % (1.7-9.3); Neutrophils % 73.7 % (37.0-80.0); Platelet Count 326 K/mm3 (142-424); Red Blood Count 4.94 M/mm3 (4.20-5.40); Red Cell Distribution Width 13.9 % (11.5-17.5); White Blood Count 12.3 K/mm3 (4.8-10.8)
== END ==
PROVIDERS: Visit Provider Internal Medicine Cardiovascular Disease
DX: E78.2 Mixed hyperlipidemia (principal); I25.10 Atherosclerotic heart disease of native coronary artery without angina pectoris; I48.0 Paroxysmal atrial fibrillation; I50.22 Chronic systolic (congestive) heart failure; Z95.810 Presence of automatic (implantable) cardiac defibrillator; I11.0 Hypertensive heart disease with heart failure
CPT/HCPCS: 36415; 80048; 85025

== ENCOUNTER → 2021-01-08 11:37 | Outpatient (CLI) | payer MEDICARE, OTHER, SELFPAY | PROVIDERS: PCP Nurse Practitioner Family; Visit Provider Nurse Practitioner Family | DX: Z20.822 Contact with and (suspected) exposure to COVID-19 (principal) | CPT/HCPCS: U0003 ==

== ENCOUNTER → 2021-04-09 15:02 | Outpatient (CLI) | payer MEDICARE, OTHER, SELFPAY ==
[2021-04-09 17:11] LABS: Thyroid Stimulating Hormone 3.52 uIU/mL (0.465-4.68)
[2021-04-09 17:42] LABS: Free T4 (Free Thyroxine) 1.63 ng/dl (0.78-2.19)
[2021-04-11 10:31] LABS: Thyroid Peroxidase Antibodies <8 IU/mL (0-34); Triiodothyronine (T3) Free 2.1 pg/mL (2.0-4.4)
[2021-04-14 14:12] LABS: Thyroid Stimulating Immunoglob <0.10 IU/L (0.00-0.55)
== END ==
PROVIDERS: Visit Provider Otolaryngology
DX: I16.0 Hypertensive urgency (principal); R42 Dizziness and giddiness
CPT/HCPCS: 36415; 84439; 84443; 84445; 84481; 86376

== ENCOUNTER → 2021-04-14 13:55 | Outpatient (CLI) | payer MEDICARE, OTHER, SELFPAY ==
--- NOTE | 2021-04-14 13:56 | US_ITS ---
PROCEDURE: US THYROID CLINICAL INDICATION: thyroid goiter COMPARISON: US US THYROID from 10/10/2020 FINDINGS: Right lobe: 3.5 x 1.5 x 2.1 cm. Multiple small nodules are present on the right most of which are small cysts. 6 mm hypoechoic nodule upper pole on the right unchanged. Left lobe: 4 x 1.2 x 1.4 cm. There are multiple cystic lesions once again noted the largest in the upper pole at 8 x 5 mm containing central increased echogenicity similar to the previous exam. 6 mm cystic lesion is present in the lower pole also containing a small central hyperechoic focus. Unchanged. No new nodules evident. Isthmus: Thickened at 5 mm Additional findings: IMPRESSION: Stable appearance of the thyroid gland with bilateral benign-appearing nodules. Annual follow-up suggested. Dictated by: Zachary Stone MD 04/15/2021 15:04 Zachary Stone MD in [place] 04/15/2021 15:04
== END ==
PROVIDERS: PCP Family Medicine; Visit Provider Otolaryngology
DX: R42 Dizziness and giddiness (principal)
CPT/HCPCS: 76536

== ENCOUNTER → 2021-04-16 15:31 | Outpatient (CLI) | payer MEDICARE, OTHER, SELFPAY | PROVIDERS: PCP Nurse Practitioner Family; Visit Provider Nurse Practitioner | DX: Z20.822 Contact with and (suspected) exposure to COVID-19 (principal) | CPT/HCPCS: C9803; U0003; U0005 ==

== ENCOUNTER → 2021-07-03 09:35 | Outpatient (CLI) | payer MEDICARE, OTHER, SELFPAY ==
[2021-07-03 10:01] LABS: Basophils # 0.1 K/mm3 (0-0.2); Basophils % 0.6 % (0.1-2.0); Eosinophils # 0.1 K/mm3 (0.0-0.4); Eosinophils % 0.9 % (0.1-12.0); Hematocrit 46.5 % (37.0-47.0); Hemoglobin 15.1 g/dL (12.2-16.2); Lymphocytes # 2.1 K/mm3 (0.7-4.5); Lymphocytes % 23.4 % (10-50); Mean Corpuscular HGB Conc 32.6 g/dL (31.8-35.4); Mean Corpuscular Volume 85.9 fl (81-99); Mean Platelet Volume 8.4 fl (7.4-10.4); Monocytes # 0.6 K/mm3 (0.1-1.0); Monocytes % 6.7 % (1.7-9.3); Neutrophils % 68.4 % (37.0-80.0); Platelet Count 353 K/mm3 (142-424); Red Blood Count 5.41 M/mm3 (4.20-5.40); Red Cell Distribution Width 14.8 % (11.5-17.5); White Blood Count 8.8 K/mm3 (4.8-10.8)
[2021-07-03 19:20] LABS: Anion Gap 15.2 mEq/L (5-15); Blood Urea Nitrogen 30 mg/dl (7-17); Calcium 10.1 mg/dl (8.4-10.2); Carbon Dioxide 29 mmol/L (22.0-30.0); Chloride 96 mmol/L (98-107); Estimated Glomerular Filt Rate 44 ml/min (>60); GFR (African American) 53 ML/MIN (>60); Glucose 239 mg/dl (74-100); Potassium 4.2 mmoL/L (3.5-5.1); Sodium 136 mmol/L (136-145)
== END ==
PROVIDERS: Visit Provider Internal Medicine Cardiovascular Disease
DX: E78.5 Hyperlipidemia, unspecified (principal); I25.10 Atherosclerotic heart disease of native coronary artery without angina pectoris; I48.0 Paroxysmal atrial fibrillation; I50.22 Chronic systolic (congestive) heart failure; R06.00 Dyspnea, unspecified; R42 Dizziness and giddiness; Z95.810 Presence of automatic (implantable) cardiac defibrillator; I11.0 Hypertensive heart disease with heart failure
CPT/HCPCS: 36415; 80048; 85025

== ENCOUNTER → 2021-07-08 06:50 | Outpatient (CLI) | payer MEDICARE, OTHER, SELFPAY ==
--- NOTE | 2021-07-08 06:51 | CA_ITS ---
APPROVED REPORT Exam: Pharmacologic Technologist: Aishwarya Dudley, Ht: 5 ft 5 in Wt: 156 lbs BSA: 1.78 m2 HR: 64 bpm BP: 109/54 mmHg Rhythm: NSR, IVCD, INDETERMINATE AXIS, POOR R WAVE PROGRESSION Medical History Medical History: Hyperlipidemia, Diabetes Medications: Omeprazole,,,,, Amiodarone,,,,, Trazadone,,,,, Losartan,,,,, Atorvastatin,,,,, SyMBICORT,,,,, INSULIN,,,,, CloPIdogrel,,,,, Magnesium,,,,, Vitamin B,,,,, MeFORMIN,,,,, SpirOnALACTONE,,,,, Allergies: No known drug allergies Cardiac Risk Factors: Hyperlipidemia, Diabetes , FHX of CAD Stress Test Details Test: LEXISCAN HR Resting HR: 64 bpm Max Heart Rate (APMHR): 146.941589 bpm Max HR Achieved: 81 bpm Target HR (85% APMHR): 124.826844 bpm % of APMHR: 55.48 Recovery HR: 76 bpm BP Resting BP: 109/54 mmHg Max BP: 135/62 mmHg Recovery BP: 112.0/57.0 mmHg ECG Resting ECG: NSR, IVCD, INDETERMINATE AXIS, POOR R WAVE PROGRESSION Clinical Exercise duration: 04:10 min Highest Stage Achieved: Stress ECG Conclusion PT HAD SOA, HEAD DISCOMFORT. NO CP. OCCASIONAL PACER SPIKE NOTED, BUT NO ARRHYTHMIAS. T WAVE INVERSION IN LEADS III AVF. NON DIAGNOSTIC LEXISCAN STRESS. MYOVIEW IMAGES REPORTED SEPARATELY. Test Summary RECOVERY 03:19 . . 76 . 112/ 57 . . Stage 1 01:00 . . 74 . . . . Stage 2 01:00 . . 80 . 118/ 57 . . Stage 3 01:00 . . 78 . 128/ 59 . . Stage 4 01:00 . . 77 . 135/ 62 . . Stage 4 01:10 . . 76 . 135/ 62 . Stop exercise at 04:10 RECOVERY 01:00 . . 75 . . . . RECOVERY 02:00 . . 75 . 118/ 52 . . RECOVERY 03:00 . . 75 . 112/ 57 . . RECOVERY 03:19 . . 76 . 112/ 57 . . Electronically signed by : Link Monroe MD 07/08/2021 20:38:56
--- NOTE | 2021-07-08 06:51 | NM_ITS ---
APPROVED REPORT Exam: Nuclear Stress Test Indication: Chest pain, SOB, CAD, CHF, HTN, DM, High cholesterol, Family history Patient Location: Outpatient Stress Tech: Aishwarya Dudley AL Tech:Josephine Hernandez, ARRT, RT (R)(N) Ht: 5 ft 5 in Wt: 151 lbs Bra Size: C HR: 64 bpm BP: 109/54 mmHg BSA: 1.76 m2 BMI: 25.1 History: Chest pain, SOB, CAD, CHF, HTN, DM, High cholesterol, Family history Procedure: Patient received a 0.4 mg of intravenous Lexiscan, resting heart rate 64 bpm, resting blood pressure 109/54 mmHg, with Lexiscan maximum heart rate achived was 81 bpm which is Less than 85 % of the maximum predicted heart rate and blood pressure was 135/62 mmHg. With Lexiscan, patient denied any complaint of chest pain. Electrocardiogram Resting electrocardiogram shows sinus rhythm intraventricular conduction delay, with Lexiscan there is less than 1.[address] segment depression noted from the baseline EKG. The EKG portion of the Lexiscan is nondiagnostic. Cardiac Stress and Resting SPECT Images: Cardiac Stress and Resting SPECT images were obtained using technetium 99m Myoview 30.0 mCi stress and 10.93 mCi at rest. Gated SPECT for analysis of segmental wall motion and calculation of the ejection fraction also done, prone images were also obtained. Cardiac stress and resting SPECT images show fixed defect involving the apex and anteroseptal wall consistent with area of myocardial scarring without significant jaden-infarct ischemia, computer derived ejection fraction 38% with moderate apical and anteroseptal wall hypokinesis. There is abnormal septal motion. Right ventricle is normal size and contractility. Conclusion: 1. The EKG portion of the Lexiscan Myoview is nondiagnostic. 2. Scintigraphic evidence of myocardial scarring involving the apex and anteroseptal wall without significant jaden-infarct ischemia, computer derived ejection fraction 38% with segmental wall motion abnormality described above, right ventricle is normal size and contractility 3. Abnormal Lexiscan Myoview study. Electronically signed by : Link Monroe MD 07/08/2021 21:01:49
--- NOTE | 2021-07-08 08:45 | HMH.ITSHM ---
Current Home Medications as stated by this patient Shyanne Smiley or customer loyalty representative. []VITAMIN B VENLAFAXINE TRAZODONE RIVAROXABAN OMEPRAZOLE METOPROLOL METFORMIN LOSARTAN ISOSORBIDE INSULIN GEMFIBROZIL DAPAGLIFROZIL SPIRONOLACTONE FUROSEMIDE CLOPIDOGREL BUDESONIDE ATORVASTATIN POTASSIUM
== END ==
PROVIDERS: PCP Family Medicine; Visit Provider Internal Medicine Cardiovascular Disease
DX: E78.5 Hyperlipidemia, unspecified (principal); I20.8 Other forms of angina pectoris; I48.0 Paroxysmal atrial fibrillation; I50.22 Chronic systolic (congestive) heart failure; R06.00 Dyspnea, unspecified; R42 Dizziness and giddiness; Z95.810 Presence of automatic (implantable) cardiac defibrillator; I11.0 Hypertensive heart disease with heart failure
CPT/HCPCS: 78452; 93017; A9502; J2785

== ENCOUNTER 2021-07-27 07:59 | Outpatient (CLI) | payer MEDICARE, OTHER, SELFPAY ==
[2021-07-27] VITALS (9 sets, daily range): BP systolic 124–132; BP diastolic 66–71; PULSE 62–72; RESP 18; TEMP 36.4–36.8; O2SAT 96–98
== END 2021-07-27 11:30 | disposition home or self-care (01) ==
LOC: COVID.OUT 08:00
PROVIDERS: PCP Family Medicine; Visit Provider Family Medicine
DX: U07.1 COVID-19 (principal); Z23 Encounter for immunization
CPT/HCPCS: 96365

== ENCOUNTER → 2021-08-10 10:59 | Outpatient (CLI) | payer MEDICARE, OTHER, SELFPAY ==
--- NOTE | 2021-08-10 11:03 | CA_ITS ---
FINAL REPORT TECHNIQUE: Color Doppler, duplex Doppler and nicolas scale sonography of the bilateral neck arterial vasculature was performed. Velocities were measured in the carotid arteries. Stenosis evaluation based on the validated velocity criteria. CLINICAL HISTORY: HLD, DM, DIZZINESS FINDINGS: The peak systolic velocity of the right common carotid artery is 72 cm/s. The peak systolic velocity of the right internal carotid artery is 55 cm/s and end diastolic velocity 16 cm/s. A small amount of plaque is present. The right external carotid artery is patent. The right vertebral artery is patent with antegrade flow. The peak systolic velocity of the left common carotid artery is 81 cm/s. The peak systolic velocity of the left internal carotid artery is 75 cm/s and end diastolic velocity 23 cm/s. A small amount of plaque is present. The left external carotid artery is patent.The left vertebral artery is patent with antegrade flow. IMPRESSION: Less than 50% bilateral carotid stenoses. Bilateral patent vertebral arteries with antegrade flow. If indicated, CTA or MRA could further evaluate. Reviewed, Interpreted and Dictated by Antonio De Guzman III, MD Transcribed by Gabriel Lopes Authenticated by Antonio De Guzman III, MD on 08/10/2021 01:24:[address] [facility]
== END ==
PROVIDERS: PCP Family Medicine; Visit Provider Nurse Practitioner Family
DX: R42 Dizziness and giddiness (principal); I65.21 Occlusion and stenosis of right carotid artery
CPT/HCPCS: 93880

== ENCOUNTER → 2021-08-26 09:40 | Outpatient (CLI) | payer MEDICARE, OTHER, SELFPAY | PROVIDERS: PCP Nurse Practitioner Family; Visit Provider Nurse Practitioner | DX: U07.1 COVID-19 (principal) | CPT/HCPCS: C9803; U0003; U0005 ==

== ENCOUNTER → 2021-09-09 17:36 | Outpatient (CLI) | payer MEDICARE, OTHER, SELFPAY | PROVIDERS: PCP Nurse Practitioner Family; Visit Provider Nurse Practitioner | DX: Z20.822 Contact with and (suspected) exposure to COVID-19 (principal) | CPT/HCPCS: C9803; U0003; U0005 ==

== ENCOUNTER 2022-02-18 19:15 | Emergency (ER) | payer MEDICARE, OTHER, SELFPAY ==
[2022-02-18 19:15] VITALS: BP 135/76; PULSE 81; RESP 20; TEMP 36.6; O2SAT 98; BMI 25.2
--- NOTE | 2022-02-18 19:38 | HMH.EDUTC ---
[facility] Disposition Clinical Impression: Viral syndrome, Exposure to COVID-19 virus Disposition: Home, Self-Care Condition on Discharge: Good Instructions: DI for COVID-19 (Suspected or Confirmed ), Preventing the Spread of Coronavirus Discharge Instructions Additional Instructions: Drink plenty of fluids. Take tylenol or ibuprofen for pain or fever. Take the medications as directed. Follow up with your regular doctor. GO TO THE ER FOR ANY WORSENING SYMPTOMS Quarantine until you know the results of your covid-19 test. Notify your school or workplace of your results and follow their instructions regarding return to work/school. Prescriptions: Ondansetron [Zofran 4mg ODT] 4 mg PO Q8HP PRN #20 tab PRN Reason: Nausea Transmission Status: Received by [facility] Benzonatate [Benzonatate 100mg cap] 100 mg PO TIDP PRN #30 cap PRN Reason: Cough Transmission Status: Received by [facility] Referrals: Elsie Mccurdy APRN [Primary Care Provider] - Time of Disposition: 20:16 Medical Decision Making - Medical Records Medical records reviewed: No: I reviewed the patient's medical records. - Alberto Inquiry Pt receiving controlled substance: No Vital Signs: 02/18/22 19:15 02/18/22 20:17 Temperature 97.8 F 97.8 F Temperature Source Oral Oral Pulse Rate 81 Pulse Rate [Radial] 81 Respiratory Rate 20 18 Blood Pressure 135/76 Blood Pressure [Right Arm] 135/76 Blood Pressure Mean [Right Arm] 95 Blood Pressure Source Automatic Cuff Blood Pressure Source [Right Arm] Automatic Cuff Blood Pressure Position Sitting Blood Pressure Position [Right Arm] Sitting 02 Sat by Pulse Oximetry 98 Oxygen Delivery Method Room Air Room Air Orders (Tests/Meds): ORDERS Category Date Time Status Covid-19 Nasal PCR ([facility]) Routine Lab 02/18/22 19:35 Received [facility] HPI - General Stated complaint: COVID TEST Time Seen by Provider: 02/18/22 19:38 - History of Present Illness Provider Complaint: She is here with body aches, nausea and diarrhea. She has a dry cough, but she states she does not feel short of breath or congested. She has been exposed to covid-19 by having2 family members that live with currently having it. She has been fully vaccinated and she had covid-19 5 months ago and did ok with it. - Related Data Home Medications Medication Instructions Recorded Confirmed budesonide-formoterol HFA 160 2 puff INHALATION BID g 08/03/17 07/17/21 mcg-4.5 mcg/actuation aerosol inhaler metformin 1,000 mg tablet 1,000 mg PO BID 08/03/17 07/17/21 trazodone 50 mg tablet 50 mg PO HS PRN 04/04/18 07/17/21 Spironolactone [Spironolactone 25 mg PO DAILY 10/17/20 07/17/21 25mg Tablet] gemfibroziL [Lopid 600mg Tablet] 600 mg PO BID 10/18/20 07/17/21 insulin NPH-regular 70-30 U-100 15 unit SQ DAILY ml 12/05/20 07/17/21 insulin 100 unit/mL subcutaneous pen vitamin B complex 1 tab PO DAILY 04/03/21 07/17/21 venlafaxine 75 mg capsule,extended 75 mg PO cap 04/09/21 07/17/21 release 24 hr losartan 25 mg tablet 25 mg PO tab 04/20/21 07/17/21 Previous Rx's Medication Instructions Recorded Furosemide [Furosemide 40MG tAB*] 40 mg PO DAILY #0 10/20/20 Magnesium Oxide [Mag-Ox 400mg Tab] 400 mg PO BID #60 tab 10/20/20 Potassium Chloride [Klor-con 20 20 meq PO BID #60 tab 10/20/20 mEq tablet] ondansetron HCL [Ondansetron 8mg 8 mg PO TIDP PRN #30 tab 10/20/20 tab*] dapagliflozin 10 mg tablet 10 mg PO DAILY #30 tab 12/16/20 clopidogrel 75 mg tablet See Rx Instructions .ROUTE 05/13/21 .COMPLEX #30 tab isosorbide mononitrate 30 mg 30 mg PO DAILY #30 tab 07/03/21 tablet,extended release 24 hr omeprazole 40 mg capsule,delayed 40 mg PO DAILY #30 cap 07/03/21 release amiodarone 200 mg tablet See Rx Instructions .ROUTE 07/15/21 .COMPLEX #30 tab atorvastatin 80 mg tablet See Rx Instructions .ROUTE 07/15/21 .COMPLEX #30 tab metoprol
[2022-02-18 20:17] VITALS: BP 135/76; PULSE 81; RESP 18; TEMP 36.6
== END 2022-02-18 20:18 | disposition home or self-care (01) ==
PROVIDERS: Emergency Provider Nurse Practitioner Family; PCP Nurse Practitioner Family
DX: Z20.822 Contact with and (suspected) exposure to COVID-19 (principal); B34.9 Viral infection, unspecified; R19.7 Diarrhea, unspecified; R05.9 Cough, unspecified; R11.0 Nausea
CPT/HCPCS: 99212; C9803; G0463; U0003; U0005

== ENCOUNTER → 2022-02-26 13:23 | Outpatient (CLI) | payer MEDICARE, OTHER, SELFPAY ==
--- NOTE | 2022-02-26 13:38 | US_ITS ---
FINAL REPORT CLINICAL HISTORY: HTN, DM, HLD, HX SD, CAD, claudication, bilateral rest pain. FINDINGS: ANKLE/BRACHIAL INDICES FINDINGS: Pressure indices are as follows: RIGHT LOWER EXTREMITY: Ankle brachial pressure index: 1.23 Comments: Normal LEFT LOWER EXTREMITY: Ankle brachial pressure index: 1.17 Comments: Normal IMPRESSION: No evidence of significant obstructive peripheral vascular disease of the lower extremities. Reviewed, Interpreted and Dictated by Susie Carballo MD Transcribed by Gabriel Lopes Authenticated and [facility]
== END ==
PROVIDERS: PCP Nurse Practitioner Family; Visit Provider Nurse Practitioner Family
DX: I70.213 Atherosclerosis of native arteries of extremities with intermittent claudication, bilateral legs (principal); M79.604 Pain in right leg; M79.605 Pain in left leg
CPT/HCPCS: 93923

== ENCOUNTER 2022-02-28 15:27 | Emergency (ER) | payer MEDICARE, OTHER, SELFPAY ==
[2022-02-28 15:29] VITALS: BP 141/72; PULSE 82; RESP 20; TEMP 36.6; O2SAT 100; BMI 25.1
[2022-02-28 15:35] VITALS: BP 141/72; PULSE 85; O2SAT 98
--- NOTE | 2022-02-28 15:35 | PC.NURSE ---
RN @ BS triaging pt
--- NOTE | 2022-02-28 15:45 | PC.NURSE ---
1546 ED MD AT BEDSIDE
--- NOTE | 2022-02-28 15:57 | CT_ITS ---
PROCEDURE INFORMATION: Exam: CTA Head With Contrast, Arteriography Exam date and time: 02/28/22 04:40 PM Age: 76 years old Clinical indication: Dizziness and giddiness and headache; Additional info: Dizziness, L sided headache. Not taking ac TECHNIQUE: Imaging protocol: Computed tomographic angiography of the head with contrast. Exam focused on the arteries. 3D rendering (Not supervised by radiologist): MIP and/or 3D reconstructed images were created by the technologist. Radiation optimization: All CT scans at this facility use at least one of these dose optimization techniques: automated exposure control; mA and/or kV adjustment per patient size (includes targeted exams where dose is matched to clinical indication); or iterative reconstruction. Contrast material: ISOVUE 370; Contrast volume: 100 ml; Contrast route: INTRAVENOUS (IV); COMPARISON: CT HEAD/BRAIN WO CON 02/28/22 04:38 PM FINDINGS: ANTERIOR CIRCULATION: Right internal carotid artery: Unremarkable. Intracranial segment is patent with no significant stenosis. No aneurysm. Right middle cerebral artery: Unremarkable. No occlusion or significant stenosis. No aneurysm. Right anterior cerebral artery: Unremarkable. No occlusion or significant stenosis. No aneurysm. Left internal carotid artery: Unremarkable. Intracranial segment is patent with no significant stenosis. No aneurysm. Left middle cerebral artery: Unremarkable. No occlusion or significant stenosis. No aneurysm. Left anterior cerebral artery: Unremarkable. No occlusion or significant stenosis. No aneurysm. POSTERIOR CIRCULATION: Right vertebral artery: Unremarkable. No occlusion or significant stenosis. No aneurysm. Left vertebral artery: Unremarkable. No occlusion or significant stenosis. No aneurysm. Basilar artery: Unremarkable. No occlusion or significant stenosis. No aneurysm. Right posterior cerebral artery: Unremarkable. No occlusion or significant stenosis. No aneurysm. Left posterior cerebral artery: Unremarkable. No occlusion or significant stenosis. No aneurysm. Brain: No definite mass, mass effect, or midline shift. Cerebral ventricles: No ventriculomegaly. Bones/joints: Unremarkable. No acute fracture. Soft tissues: Unremarkable. IMPRESSION: No large vessel stenosis or occlusion.
--- NOTE | 2022-02-28 15:57 | CT_ITS ---
PROCEDURE INFORMATION: Exam: CT Head Without Contrast Exam date and time: 02/28/22 04:38 PM Age: 76 years old Clinical indication: Stroke-like symptoms; Dizziness/giddiness; Additional info: Dizziness, L sided headache. Not taking ac TECHNIQUE: Imaging protocol: Computed tomography of the head without contrast. Radiation optimization: All CT scans at this facility use at least one of these dose optimization techniques: automated exposure control; mA and/or kV adjustment per patient size (includes targeted exams where dose is matched to clinical indication); or iterative reconstruction. Other technique: STROKE PROTOCOL was implemented. COMPARISON: CT HEAD/BRAIN WO CON 07/30/20 02:15 PM FINDINGS: Brain: Periventricular and subcortical small vessel ischemic changes. Mild atrophy associated. No acute hemorrhage, mass effect, midline shift, or extra-axial fluid collection. Cerebral ventricles: No ventriculomegaly. Paranasal sinuses: Visualized sinuses are unremarkable. No fluid levels. Mastoid air cells: Visualized mastoid air cells are well aerated. Bones/joints: Unremarkable. No acute fracture. Soft tissues: Unremarkable. IMPRESSION: No acute intracranial abnormality. ASSESSMENT: ASPECTS ([place] Stroke Program Early CT Score) is 10.
--- NOTE | 2022-02-28 15:57 | CT_ITS ---
PROCEDURE INFORMATION: Exam: CTA Neck With Contrast Exam date and time: 02/28/22 04:40 PM Age: 76 years old Clinical indication: Stroke-like symptoms; Dizziness/giddiness and headache; Additional info: Dizziness, L sided headache. Not taking ac TECHNIQUE: Imaging protocol: Computed tomographic angiography of the neck with contrast. 3D rendering (Not supervised by radiologist): MIP and/or 3D reconstructed images were created by the technologist. Radiation optimization: All CT scans at this facility use at least one of these dose optimization techniques: automated exposure control; mA and/or kV adjustment per patient size (includes targeted exams where dose is matched to clinical indication); or iterative reconstruction. Contrast material: ISOVUE 370; Contrast volume: 100 ml; Contrast route: INTRAVENOUS (IV); COMPARISON: US CA CAROTID DUPLEX BI 08/10/21 11:09 AM FINDINGS: Right common carotid artery: No stenosis. No dissection or occlusion. Right internal carotid artery: Mild stenosis of the extracranial segment. Less than 50% by NASCET criteria. No dissection or occlusion. Right external carotid artery: No occlusion or stenosis of the origin. Left common carotid artery: No stenosis. No dissection or occlusion. Left internal carotid artery: Mild stenosis of the extracranial segment. Less than 50% by NASCET criteria. No dissection or occlusion. Left external carotid artery: No occlusion or stenosis of the origin. Right vertebral artery: No stenosis. No dissection or occlusion. Left vertebral artery: No stenosis. No dissection or occlusion. Soft tissues: Normal. No significant soft tissue swelling. 7 mm left thyroid nodule, consider thyroid sonogram. Bones/joints: No acute fracture. IMPRESSION: Mild bilateral ICA stenosis, less than 50% by NASCET criteria. COMMENTS: Consistent with the [employer] [place] [employer]'s Incidental Findings Committee white paper (J Am Amarilis Radiol 2015): In patients aged 35 years and older with an incidental thyroid nodule equal to or greater than 1.[address], MRI or extrathyroidal US, further evaluation with dedicated thyroid US is recommended for patients with normal life expectancy and without comorbidities. For smaller nodules without suspicious features, no further evaluation or follow up is recommended. REFERENCES: NASCET CRITERIA. The degree of internal carotid artery stenosis is based on NASCET criteria. Normal is no stenosis. Mild is less than 50% stenosis. Moderate is 50-69% stenosis. Severe is 70% to 99% stenosis. Total occlusion is no detectable patent lumen.
--- NOTE | 2022-02-28 15:58 | XR_ITS ---
PROCEDURE INFORMATION: Exam: XR Chest Exam date and time: 02/28/22 04:59 PM Age: 76 years old Clinical indication: Other: Chf, dizziness TECHNIQUE: Imaging protocol: Radiologic exam of the chest. Views: 1 view. COMPARISON: CR XR CHEST 2V 10/17/20 09:42 PM FINDINGS: Lungs: Hyperexpanded. No consolidation. Pleural spaces: Unremarkable. No pleural effusion. No pneumothorax. Heart/Mediastinum: Left subclavian pacemaker leads overlie the right atrium and right ventricle. No cardiomegaly. Bones/joints: Unremarkable. IMPRESSION: No acute findings.
[2022-02-28 16:00] VITALS: BP 146/75; PULSE 80; O2SAT 96
--- NOTE | 2022-02-28 16:03 | HMH.EDGENADL ---
ED Disposition Clinical Impression: Dehydration, Dizziness Disposition: Home, Self-Care Condition on Discharge: Good Instructions: DI for Diarrhea and Traveler's Diarrhea -- Adult, DI for Diarrhea and Traveler's Diarrhea -- Child, DI for Nausea -- Adult, DI for Nausea -- Child Additional Instructions: Restart medications, including aspirin, Xarelto, statin, diabetes medications to prevent stroke, further worsening of your symptoms. Zofran for nausea, meclizine has been prescribed for symptomatic dizziness. Follow-up with cardiology in the morning, be sure to tell them your BNP was mildly elevated. If you have new or worsening symptoms, or any other concerning signs or symptoms, return to the emergency department for further evaluation. ENT referral has been placed. Follow-up with your primary care provider within 72 hours to establish care and sort out medication reconciliation. Prescriptions: Meclizine HCl [Meclizine 25mg Tab] 25 mg PO Q8HP PRN #30 tab PRN Reason: Dizziness Transmission Status: Received by [facility] Ondansetron [Zofran 4mg ODT] 4 mg PO TIDP PRN #10 tab PRN Reason: Nausea Transmission Status: Received by [facility] Referrals: Elsie Mccurdy APRN [Primary Care Provider] - Lon Greco III, MD [Physician] - - Critical Care Critical Care Time: No Attestation: On 02/28/22, the high probability of a clinically significant, sudden or life threatening deterioration of the following system(s) required my full and direct attention, intervention and personal management. The time I documented below is in addition to time spent performing reported procedures but includes the following listed in this critical care notation. Medical Decision Making - Alberto Inquiry Pt receiving controlled substance: No Vital Signs: 02/28/22 15:29 02/28/22 15:35 02/28/22 16:00 Temperature 97.8 F Temperature Source Oral Pulse Rate 85 80 Pulse Rate [Radial] 82 Respiratory Rate 20 Blood Pressure 141/72 H 146/75 H Blood Pressure [Right Arm] 141/72 H Blood Pressure Mean 96 98 Blood Pressure Mean [Right Arm] 95 Blood Pressure Source [Right Arm] Automatic Cuff Blood Pressure Position [Right Arm] Sitting 02 Sat by Pulse Oximetry 100 98 96 Oxygen Delivery Method Room Air - Lab Data Lab Results 02/28/22 16:06: POC Glucose 332 H* 02/28/22 16:09: WBC 10.8, RBC 5.73 H, Hgb 15.4, Hct 50.0 H, MCV 87.2, MCH 26.9 L, MCHC 30.9 L, RDW 14.6, Plt Count 237, MPV 8.6, Neut % (Auto) 86.4 H, Lymph % (Auto) 8.6 L, [place] % (Auto) 4.2, Eos % (Auto) 0.5, Baso % (Auto) 0.4, Neut # (Auto) 9.4 H, Lymph # (Auto) 0.9, [place] # (Auto) 0.5, Eos # (Auto) 0.1, Baso # (Auto) 0.0, Total Counted 100, Neutrophils % (Manual) 84 H, Lymphocytes % (Manual) 11, Monocytes % (Manual) 4, Eosinophils % (Manual) 1, Platelet Estimate Normal, Hypochromasia 1+ 02/28/22 16:09: Sodium 136, Potassium 4.5, Chloride 97 L, Carbon Dioxide 33 H, Anion Gap 10.5, BUN 16, Creatinine 0.80, Estimated Creat Clear 53, Estimated GFR 70, Est GFR ( Amer) 85, Glucose 373 H, Calcium 9.6, Total Bilirubin 0.5, AST 38 H, ALT 32, Alkaline Phosphatase 175 H, Troponin I 0.01, Total Protein 7.3, Albumin 4.0, Globulin 3.3 H, Albumin/Globulin Ratio 1.2 02/28/22 16:09: NT-Pro-B Natriuret Pep 642 H Result diagrams: 02/28/22 16:09 02/28/22 16:09 Orders (Tests/Meds): ED MEDICATIONS Generic Name Dose Route Start Last Admin Trade Name Freq PRN Reason Stop Dose Admin Lactated Ringer's 500 mls @ 999 mls/hr 02/28/22 17:00 02/28/22 17:06 Lactated Ringer's 1000 Ml Bag IV 02/28/22 17:30 999 mls/hr .Q31M HOMA Administration Sodium Chloride 10 ml 02/28/22 16:12 Sodium Chloride 0.9% 10ml Flush Syringe IV 03/30/22 16:11 NEEDED PRN Maintain IV Site Discontinued Medications Generic Name Dose Route Start Last Admin Trade Name Freq PRN Reason Stop Dose Admin Iopamidol 100 ml 02/28/22 16:55 02/28/22
--- NOTE | 2022-02-28 16:05 | PC.NURSE ---
1605 POC DISCUSSED WITH PT. QUESTIONS ENCOURAGED AND ANSWERED. PT V/U AGREES. IV STARTED AT THIS TIME. LABS COLLECTED. PT TOLERATED WELL
--- NOTE | 2022-02-28 16:10 | ECG_ITS ---
APPROVED REPORT Exam: Resting ECG HR:73 bpm ECG Measurements Heart Rate 73 AXES MA 151 P 73 QRSd 151 QRS -88 QT 454 T 53 QTc 479 Conclusion SINUS RHYTHM WITH OCCASIONAL SUPRAVENTRICULAR PREMATURE COMPLEXES POSSIBLE LEFT ATRIAL ENLARGEMENT [-0.1mV P-WAVE IN V1/V2] LEFT AXIS DEVIATION [QRS AXIS < -30] INTRAVENTRICULAR CONDUCTION DELAY [130+ ms QRS DURATION] ABNORMAL ECG UNCONFIRMED REPORT Electronically signed by : Joni Corcoran MD 03/01/2022 20:37:39
--- NOTE | 2022-02-28 16:10 | PC.NURSE ---
EKG obtained and given to JONATHAN NEGRON
[2022-02-28 16:13] LABS: POC Glucose,Bedside 332 (70-110)
--- NOTE | 2022-02-28 16:14 | PC.NURSE ---
Pt given ice water; okay'd by JONATHAN NEGRON
[2022-02-28 16:23] LABS: Basophils % 0.4 % (0.1-2.0); Eosinophils # 0.1 K/mm3 (0.0-0.4); Eosinophils % 0.5 % (0.1-12.0); Hemoglobin 15.4 g/dL (12.2-16.2); Lymphocytes # 0.9 K/mm3 (0.7-4.5); Lymphocytes % 8.6 % (10-50); Mean Corpuscular HGB Conc 30.9 g/dL (31.8-35.4); Mean Corpuscular Hemoglobin 26.9 pg (27.0-31.2); Mean Corpuscular Volume 87.2 fl (81-99); Mean Platelet Volume 8.6 fl (7.4-10.4); Monocytes # 0.5 K/mm3 (0.1-1.0); Monocytes % 4.2 % (1.7-9.3); Neutrophils # 9.4 K/mm3 (1.8-7.8); Neutrophils % 86.4 % (37.0-80.0); Platelet Count 237 K/mm3 (142-424); Red Blood Count 5.73 M/mm3 (4.20-5.40); Red Cell Distribution Width 14.6 % (11.5-17.5); White Blood Count 10.8 K/mm3 (4.8-10.8)
[2022-02-28 16:25] LABS: MANUAL DIFFERENTIAL MANUAL DIFFERENTIAL (MANUAL DIFF)
[2022-02-28 16:27] LABS: Alanine Aminotransferase 32 U/L (12-78); Albumin/Globulin Ratio 1.2 (1.1-1.8); Alkaline Phosphatase 175 U/L (38-126); Anion Gap 10.5 mEq/L (5-15); Aspartate Amino Transferase 38 U/L (14-36); Bilirubin,Total 0.5 mg/dl (0.2-1.3); Blood Urea Nitrogen 16 mg/dl (7-17); Calcium 9.6 mg/dl (8.4-10.2); Carbon Dioxide 33 mmol/L (22.0-30.0); Chloride 97 mmol/L (98-107); Creatinine Clearance Estimated 53 mL/min (50-200); Estimated Glomerular Filt Rate 70 ml/min (>60); GFR (African American) 85 ML/MIN (>60); Globulin 3.3 g/dL (1.3-3.2); Glucose 373 mg/dl (74-100); Potassium 4.5 mmoL/L (3.5-5.1); Sodium 136 mmol/L (136-145); Total Protein,Serum 7.3 g/dl (6.3-8.2)
[2022-02-28 16:36] LABS: NT Pro Brain Natriuretic Pep. 642 pg/mL (0-125)
--- NOTE | 2022-02-28 16:38 | PC.NURSE ---
PT TO RADIOLOGY AT THIS TIME
[2022-02-28 16:51] LABS: Troponin I 0.01 ng/ml (0.00-0.034)
--- NOTE | 2022-02-28 16:52 | PC.NURSE ---
PT RETURNED FROM CT AT THIS TIME
[2022-02-28 16:55] LABS: Eosinophils % 1 % (0-3); Hypochromasia 1+; Lymphocytes % 11 % (10-50); Monocytes % 4 % (2-9); Neutrophils % 84 % (42-76); Platelet Estimate Normal; Total Cells Counted 100
--- NOTE | 2022-02-28 17:09 | PC.NURSE ---
ROUNDED ON PT, RESTING IN BED, IVF'S STARTED. PT WITHOUT NEEDS AT THIS TIME. FAMILY AT BEDSIDE
--- NOTE | 2022-02-28 17:11 | PC.NURSE ---
ED SPEAKING WITH RAMIN ABOUT CT RESULTS
--- NOTE | 2022-02-28 17:35 | PC.NURSE ---
ED MD AT BEDSIDE TO REEVALUATE PT AND DISCUSS CT RESULTS
[2022-02-28 18:03] VITALS: BP 147/70; PULSE 74; RESP 15; TEMP 36.9; O2SAT 96
== END 2022-02-28 18:06 | disposition home or self-care (01) ==
PROVIDERS: Emergency Provider Emergency Medicine; PCP Nurse Practitioner Family
DX: E86.0 Dehydration (principal); R42 Dizziness and giddiness; Z79.01 Long term (current) use of anticoagulants; Z79.84 Long term (current) use of oral hypoglycemic drugs; Z79.4 Long term (current) use of insulin; Z79.899 Other long term (current) drug therapy; I11.0 Hypertensive heart disease with heart failure; I50.9 Heart failure, unspecified; I25.10 Atherosclerotic heart disease of native coronary artery without angina pectoris; I48.91 Unspecified atrial fibrillation; Z95.5 Presence of coronary angioplasty implant and graft; E11.9 Type 2 diabetes mellitus without complications
CPT/HCPCS: 70450; 70496; 70498; 71045; 80053; 82962; 83880; 84484; 85007; 85025; 93005; 96360; 99285; Q9967

== ENCOUNTER → 2022-03-22 12:45 | Outpatient (CLI) | payer MEDICARE, OTHER, SELFPAY | PROVIDERS: PCP Nurse Practitioner Family; Visit Provider Nurse Practitioner Family | DX: Z20.822 Contact with and (suspected) exposure to COVID-19 (principal) | CPT/HCPCS: C9803; U0003; U0005 ==

== ENCOUNTER 2022-04-07 19:20 | Emergency (ER) | payer MEDICARE, OTHER, SELFPAY ==
[2022-04-07 20:05] VITALS: BP 129/78; PULSE 76; RESP 19; TEMP 36.8; O2SAT 97; BMI 27.3
[2022-04-07 20:40] VITALS: BP 129/78; PULSE 76; RESP 19; TEMP 36.8; O2SAT 97
--- NOTE | 2022-04-07 20:50 | EXP.UTC ---
Discharge Plan Disposition Patient Disposition: Home, Self-Care Condition: Good Prescriptions Prescriptions: No Action trazodone 50 mg tablet 50 mg PO HS PRN (Reason: Sleep) sertraline 50 mg tablet 50 mg PO DAILY losartan 25 mg tablet 25 mg PO DAILY Qty: 30 5RF metoprolol succinate [Toprol XL] 25 mg tablet extended release 24 hr 25 mg PO DAILY Qty: 30 5RF budesonide-formoterol [Symbicort] 160-4.5 mcg/actuation HFA aerosol inhaler 2 puff INHALATION BID isosorbide mononitrate 30 mg tablet extended release 24 hr 30 mg PO DAILY Qty: 30 2RF furosemide 40 MG tablet 40 mg PO DAILY Qty: 0 0RF ondansetron 4 MG tablet,disintegrating 4 mg PO TIDP PRN (Reason: Nausea) Qty: 10 0RF Referrals Follow up/Referrals: Elsie Mccurdy APRN [Primary Care Provider] - See instructions Activity Restrictions/Add. Instructions Additional Instructions/Restrictions: *Monitor Temp, Over the counter Motrin or Tylenol as directed/as needed Tylenol every 4 hours and Motrin every 6 hours (as long as your family doctor has told you that you can take it) for fever or pain. and straight to ER if unable to lower temp less than 101.0 after medication given *Warm salt water gargles may help to soothe the throat *Throat Lozenges? *Warm fluids like tea with honey may help to soothe the throat? *Sleep elevated *Humidifier/Vaporizer Follow up IMMEDIATELY for new or worsening symptoms or no Noticeable improvement over the next 48-72 hours. 911 for difficulty breathing or swallowing You were tested for today for COVID19 your test result should be back in the next 24-48 hours, you check your results on the [facility] My Health Portal Make sure to take your Vitamins Vit. C Vit D and Zinc if you can take them Clinical Impressions Clinical Impression: Viral syndrome Stand Alone Forms Stand Alone Forms: Work/School Release Instructions Patient Instructions: DI for Viral Syndrome Discharge ED Provider: Luz Elena Caceres [facility] [place] General Stated complaint: SOA, WEAKNESS, BODY ACHES,DA Mode of Arrival: Ambulatory Source of Information: Patient Limitations: No Limitations Time Seen by Provider: 04/07/22 20:50 Description of Symptoms (Recalled from Triage Doc. by RN): PATIENT C/O COUGH, DIARRHEA, RUNNY NOSE, FATIGUE, WEAKNESS AND MUSCLE ACHES. REQUESTING COVID TEST HEENT Symptoms (Recalled from RN notes): Yes Resp Symptoms (Recalled from RN notes): Yes Skin Symptoms (Recalled from RN notes): No MS Symptoms (Recalled from RN notes): No Functional Status (Recalled from RN notes): WNL History of Present Illness Provider Complaint: Patient states that she had COVID a few weeks ago States that she is still having diarrhea on and off, nasal congestion muscle aches and fatigue on and off since States that she is suppose to go back to work but wanted to get a COVID test to see if she is still showing positive Related Data Home Medications Medication Instructions Recorded Confirmed budesonide-formoterol HFA 160 2 puff inhalation BID SHORTNESS OF 08/03/17 04/06/22 mcg-4.5 mcg/actuation aerosol AIR inhaler (Symbicort) trazodone 50 mg tablet 50 mg PO HS PRN Sleep 04/04/18 04/06/22 sertraline 50 mg tablet 50 mg PO DAILY 03/01/22 04/06/22 Previous Rx's Medication Instructions Recorded furosemide 40 mg tablet 40 mg PO DAILY Fluid ##0 10/20/20 ondansetron 4 mg disintegrating 4 mg PO TIDP PRN Nausea #10 tabs 02/28/22 tablet losartan 25 mg tablet 25 mg PO DAILY #30 tabs 03/01/22 metoprolol succinate 25 mg 25 mg PO DAILY #30 tabs 03/01/22 tablet,extended release 24 hr (Toprol XL) isosorbide mononitrate 30 mg 30 mg PO DAILY #30 tabs 04/02/22 tablet,extended release 24 hr Allergies Allergy/AdvReac Type Severity Reaction Status Date / Time No Known Allergies Allergy Verified 04/06/22 09:18 Worker's Comp Is this a Worker's Comp case?: No [facility] Medical History (Updated
== END 2022-04-07 21:00 | disposition home or self-care (01) ==
PROVIDERS: Emergency Provider Nurse Practitioner; PCP Nurse Practitioner Family
DX: U07.1 COVID-19 (principal)
CPT/HCPCS: 99212; C9803; G0463; U0003; U0005

== ENCOUNTER → 2022-04-19 08:52 | Outpatient (CLI) | payer MEDICARE, OTHER, SELFPAY ==
--- NOTE | 2022-04-19 08:53 | CA_ITS ---
APPROVED REPORT EXAM: Comprehensive 2D, Doppler, and color-flow Echocardiogram Suction Plate Carrier Cleaner: Arielle Matute RT(R) Ht: 5 ft 5 in Wt: 155lbs BSA: 1.77 BP: 134/55 mmHg Indications: CAD, edema, HTN, hyperlipidemia, CHF, CM, AFIB, AICD 2D Dimensions LVOT 2.04 cm (M/F) 1.5-2.5 LVEF (Steiner's) 33.70 % F: 54 - 74 LV Volume 132.10 mL F: 46 - 106 LV Volume Index 74.63 mL/m2 F: 29 - 61 LA Volume 36.10 mL LA Volume Index 20.39 mL/m2 (M/F) 16-34 M-Mode Dimensions RVDd 2.07 cm (0.9-2.6) LA Diam 3.26 cm (1.9-4.0) LVDd 5.39 cm (3.5-5.7) Ao Diam 2.49 cm (2.0-3.7) LVDs 4.82 cm (3.5-5.7) IVSd 0.94 cm (0.6-1.1) PWd 0.90 cm (0.6-1.1) EF (Teich) 22.80% FS 10.60% EDV (Teich) 140.70 mL ESV (Teich) 108.60 mL LV Diastology E Decel Time 140.00 (160-240 msec) E/A Ratio 1.0 MED E' 4.10 (< 7 cm/sec) E'/MED E' Ratio 28.54 (>14) Mitral Valve MV E Max Placido. 117.00 (40-130 cm/s) MV A Velocity 117.00 (40-130 cm/s) E/A Ratio 1.00 MV Decel. Time 140.00 (160-240 ms) MV PHT 41.00 ms Left Ventricle Left atrium is mildly enlarged, left ventricle is normal size mild concentric left ventricular hypertrophy, estimated ejection fraction 30% left ventricle is globally hypokinetic, tissue Doppler is indicative of raise left atrial pressure. Right Ventricle Right atrium and right ventricle are normal size and contractility, pacemaker leads in right ventricle. Aortic Valve Aortic valve is minimally thickened and fibrosed there is no aortic stenosis or aortic insufficiency. Mitral Valve Mitral valve leaflets are minimally thickened, there is moderate mitral regurgitation. Tricuspid Valve Tricuspid valve grossly normal, there is mild tricuspid regurgitation, tricuspid regurgitation jet velocity is inadequate for calculation of the right ventricular systolic pressure. Pulmonic Valve Pulmonic valve is poorly visualized. Great Vessels Aortic root is normal size. Inferior vena cava is poorly visualized. Pericardium No significant pericardial effusion noted. Conclusion 1. Mildly enlarged left ring, normal left ventricular size mild concentric left ventricular hypertrophy, estimated ejection fraction 30% left ventricle is globally hypokinetic, Doppler evidence of raise left atrial pressure. 2. Moderate mitral and mild tricuspid regurgitation. 3. No significant pericardial effusion. 4. Inferior vena cava is poorly visualized. Electronically signed by : Link Monroe MD 04/19/2022 12:56:23
== END ==
PROVIDERS: PCP Nurse Practitioner Family; Visit Provider Nurse Practitioner Family
DX: I25.118 Atherosclerotic heart disease of native coronary artery with other forms of angina pectoris (principal); I42.8 Other cardiomyopathies; I50.22 Chronic systolic (congestive) heart failure
CPT/HCPCS: 93306

== ENCOUNTER → 2022-06-08 10:10 | Outpatient (POV) | payer MEDICARE, OTHER, SELFPAY | PROVIDERS: Visit Provider Dermatology | DX: Z00.00 Encounter for general adult medical examination without abnormal findings (principal) ==

== ENCOUNTER 2022-09-03 08:37 | Observation (INO) | payer MEDICARE, OTHER, SELFPAY ==
[2022-09-03] VITALS (10 sets, daily range): BP systolic 132–162; BP diastolic 69–101; PULSE 60–70; RESP 16–19; TEMP 36.6–36.8; O2SAT 95–100; BMI 25.7; BMI 23.3; BMI 21.9
--- NOTE | 2022-09-03 08:41 | HMH.EDGENADL ---
Discharge Plan Disposition Patient Disposition: Admitted As Inpatient Prescriptions Prescriptions: No Action trazodone 50 mg tablet 50 mg PO HS PRN (Reason: Sleep) sertraline 50 mg tablet 50 mg PO DAILY budesonide-formoterol [Symbicort] 160-4.5 mcg/actuation HFA aerosol inhaler 2 puff INHALATION BID metoprolol succinate 25 mg tablet extended release 24 hr See Rx Instructions .ROUTE .COMPLEX Qty: 90 1RF Dose Instruction: TAKE ONE TABLET BY MOUTH ONCE A DAY Rx Instructions: TAKE ONE TABLET BY MOUTH ONCE A DAY losartan 25 mg tablet See Rx Instructions .ROUTE .COMPLEX Qty: 90 1RF Dose Instruction: TAKE ONE TABLET BY MOUTH ONCE A DAY Rx Instructions: TAKE ONE TABLET BY MOUTH ONCE A DAY isosorbide mononitrate 30 mg tablet extended release 24 hr See Rx Instructions .ROUTE .COMPLEX Qty: 90 1RF Dose Instruction: TAKE ONE TABLET BY MOUTH ONCE A DAY Rx Instructions: TAKE ONE TABLET BY MOUTH ONCE A DAY furosemide 40 MG tablet 40 mg PO DAILY Qty: 0 0RF ondansetron 4 MG tablet,disintegrating 4 mg PO TIDP PRN (Reason: Nausea) Qty: 10 0RF Referrals Follow up/Referrals: Dmitriy Odonnell MD [Primary Care Provider] - See instructions Clinical Impressions Clinical Impression: Concussion, Acute alteration in mental status, Hematoma of frontal scalp Discharge ED Provider: Raoul Anderson General Adult HPI General Chief complaint: Fall Stated complaint: [id number]@home, disoriented, pain in Lt shoulder Time Seen by Provider: 09/03/22 08:41 History of Present Illness HPI narrative: Patient is a 77-year-old female who presents secondary to trauma at an unknown time. She was living in a home with other people and had an unwitnessed fall presumably because she had obvious signs of trauma on her head. At that time she was significantly disoriented. Per her chart she has a past medical history including NSTEMI diabetes atrial fibrillation renal insufficiency. Her brother who is at the bedside and a primary historian states that she does is not on any anticoagulation. She also denies this however her history is significantly limited secondary to her altered mental status. She denies any pain in her neck chest arms pelvis abdomen or legs. She denies any significant complaints other than some mild headache at this moment. Per her brother she has been walking prior to arrival and did not show any signs of other focal motor abnormalities. Related Data Home Medications Medication Instructions Recorded Confirmed budesonide-formoterol HFA 160 2 puff inhalation BID SHORTNESS OF 08/03/17 04/06/22 mcg-4.5 mcg/actuation aerosol AIR inhaler (Symbicort) trazodone 50 mg tablet 50 mg PO HS PRN Sleep 04/04/18 04/06/22 sertraline 50 mg tablet 50 mg PO DAILY 03/01/22 04/06/22 Previous Rx's Medication Instructions Recorded furosemide 40 mg tablet 40 mg PO DAILY Fluid ##0 10/20/20 ondansetron 4 mg disintegrating 4 mg PO TIDP PRN Nausea #10 tabs 02/28/22 tablet isosorbide mononitrate 30 mg See Rx Instructions .Route 09/02/22 tablet,extended release 24 hr .COMPLEX #90 tabs losartan 25 mg tablet See Rx Instructions .Route 09/02/22 .COMPLEX #90 tabs metoprolol succinate 25 mg See Rx Instructions .Route 09/02/22 tablet,extended release 24 hr .COMPLEX #90 tabs Allergies Allergy/AdvReac Type Severity Reaction Status Date / Time No Known Allergies Allergy Verified 04/06/22 09:18 [facility] Disclaimer: The information contained in this section may have been updated after the patient was seen, as this information can be updated by other users. Medical History (Updated 09/03/22 @ 11:10 by Raoul Anderson MD) Anxiety Atrial fibrillation CAD (coronary artery disease) Chronic systolic heart failure COPD (chronic obstructive pulmonary disease) Depression Diabetes mellitus, type 2 Dyspnea Edema History of gastroesophageal reflux (GERD) History of heart attack
[2022-09-03 08:52] LABS: POC Glucose,Bedside 334 (70-110)
--- NOTE | 2022-09-03 08:57 | CT_ITS ---
FINAL REPORT TECHNIQUE: Axial CT images of the cervical spine were obtained without contrast. Sagittal and coronal reformatted images were also obtained. This study was performed with techniques to keep radiation doses as low as reasonably achievable (ALARA). Individualized dose reduction techniques using automated exposure control or adjustment of mA and/or kV according to the patient's size were employed. CLINICAL HISTORY: AMS, fall COMPARISON: CTA neck soft tissue 02/28/2022 FINDINGS: There is no evidence of fracture or dislocation. There is mild anterolisthesis of C3 on C4 and C4 on C5. There is mild degenerative change. There is no evidence of canal stenosis. There is a chronic calcification posterior to C5. Limited images of the upper thorax are unremarkable. IMPRESSION: Degenerative changes with no acute bony abnormality. Reviewed, Interpreted and Dictated by Antonio De Guzman III, MD Transcribed by Fabby Nation Authenticated and [facility]
--- NOTE | 2022-09-03 08:57 | XR_ITS ---
FINAL REPORT CLINICAL HISTORY: [facility] COMPARISON: 02/28/2022 FINDINGS: A single portable view of the chest was obtained. A left subclavian AICD is noted. The heart size and pulmonary vascularity are within normal limits. The mediastinum is within normal limits. No acute pulmonary abnormality is identified. The bony thorax is intact. IMPRESSION: No active cardiopulmonary disease. Reviewed, Interpreted and Dictated by Antonio De Guzman III, MD Transcribed by Fabby Nation Authenticated and [facility]
--- NOTE | 2022-09-03 08:57 | CT_ITS ---
FINAL REPORT TECHNIQUE: Axial images of the head were obtained without contrast. Coronal reformatted images were also obtained. This study was performed with techniques to keep radiation doses as low as reasonably achievable (ALARA). Individualized dose reduction techniques using automated exposure control or adjustment of mA and/or kV according to the patient's size were employed. CLINICAL HISTORY: AMS, fall COMPARISON: 02/28/2022 FINDINGS: There is generalized age-appropriate atrophy. Periventricular low-attenuation areas are seen consistent with mild chronic ischemic changes. There is no evidence of intracranial hemorrhage or mass. There is no evidence of acute infarct. There is no evidence of shift of the midline structures. No skull abnormality is seen on the bone window images. IMPRESSION: Atrophy and mild periventricular chronic ischemic changes. No acute intracranial abnormality identified. Reviewed, Interpreted and Dictated by Antonio De Guzman III, MD Transcribed by Fabby Nation Authenticated and [facility]
--- NOTE | 2022-09-03 09:13 | PC.NURSE ---
pt to radiology via ED stretcher
[2022-09-03 09:19] LABS: Basophils # 0.1 K/mm3 (0-0.2); Basophils % 1.1 % (0.1-2.0); Eosinophils # 0.1 K/mm3 (0.0-0.4); Eosinophils % 0.8 % (0.1-12.0); Hematocrit 49.9 % (37.0-47.0); Hemoglobin 16.6 g/dL (12.2-16.2); Lymphocytes # 0.9 K/mm3 (0.7-4.5); Lymphocytes % 8.8 % (10-50); Mean Corpuscular HGB Conc 33.3 g/dL (31.8-35.4); Mean Corpuscular Hemoglobin 28.7 pg (27.0-31.2); Mean Corpuscular Volume 86.2 fl (81-99); Mean Platelet Volume 8.8 fl (7.4-10.4); Monocytes # 0.4 K/mm3 (0.1-1.0); Monocytes % 3.7 % (1.7-9.3); Neutrophils # 8.9 K/mm3 (1.8-7.8); Neutrophils % 85.5 % (37.0-80.0); Platelet Count 230 K/mm3 (142-424); Red Blood Count 5.79 M/mm3 (4.20-5.40); Red Cell Distribution Width 14.3 % (11.5-17.5); White Blood Count 10.4 K/mm3 (4.8-10.8)
[2022-09-03 09:21] LABS: MANUAL DIFFERENTIAL MANUAL DIFFERENTIAL (MANUAL DIFF)
[2022-09-03 09:25] LABS: Chloride 105 mmol/L (98-107); Potassium 3.4 mmoL/L (3.5-5.1); Sodium 139 mmol/L (136-145)
[2022-09-03 09:27] LABS: Alanine Aminotransferase 27 U/L (12-78); Alkaline Phosphatase 163 U/L (38-126); Aspartate Amino Transferase 32 U/L (14-36); Bilirubin,Total 0.7 mg/dl (0.2-1.3); Blood Urea Nitrogen 16 mg/dl (7-17); Creatinine Clearance Estimated 49 mL/min (50-200); Estimated Glomerular Filt Rate 82 ml/min (>60); GFR (African American) 99 ML/MIN (>60)
[2022-09-03 09:28] LABS: Albumin/Globulin Ratio 1.3 (1.1-1.8); Anion Gap 10.4 mEq/L (5-15); Calcium 8.9 mg/dl (8.4-10.2); Carbon Dioxide 27 mmol/L (22.0-30.0); Globulin 3.2 g/dL (1.3-3.2); Glucose 361 mg/dl (74-100); Total Protein,Serum 7.2 g/dl (6.3-8.2)
--- NOTE | 2022-09-03 09:31 | INFXCTL.NOTE ---
pt returned from radiology
--- NOTE | 2022-09-03 09:37 | ECG_ITS ---
APPROVED REPORT Exam: Resting ECG HR:60 bpm ECG Measurements Heart Rate 60 AXES AR 151 P 59 QRSd 148 QRS -88 QT 480 T 56 QTc 481 Conclusion SINUS RHYTHM POSSIBLE LEFT ATRIAL ENLARGEMENT [-0.1mV P-WAVE IN V1/V2] LEFT AXIS DEVIATION [QRS AXIS < -30] INTRAVENTRICULAR CONDUCTION DELAY [130+ ms QRS DURATION] ABNORMAL ECG UNCONFIRMED REPORT Electronically signed by : Joni Corcoran MD 09/03/2022 20:54:21
[2022-09-03 09:41] LABS: Lymphocytes % 14 % (10-50); Monocytes % 3 % (2-9); Neutrophils % 83 % (42-76); Platelet Estimate Normal; RBC Morphology Normal; Total Cells Counted 100
[2022-09-03 09:48] LABS: VBG Base Excess -2.5 mmol/L (-2.4-2.3); VBG HCO3 22.8 mmol/L (23-30); VBG Oxygen Saturation 84.9 % (50-70); VBG PCO2 40.6 mmol/L (35-51); VBG PH 7.37 mmol/L (7.31-7.41); VBG PO2 48.6 mmol/L (28-40); VBG Total CO2 24.1 mmol/L (23-27)
[2022-09-03 10:01] LABS: Ammonia 9 umol/L (9-30)
--- NOTE | 2022-09-03 10:59 | PC.NURSE ---
Rounded on patient, family at BS. PT resting on ed stretcher at this time with no needs. Patient and family are aware of admission and that we are just waiting on bed assignment. Call light within reach
--- NOTE | 2022-09-03 11:01 | PC.NURSE ---
JONATHAN NEGRON speaking with Dr. Hernández at this time
--- NOTE | 2022-09-03 11:07 | EXP.HP ---
History of Present Illness *Admission Date: 09/03/22 *Reason for visit:: confusion, weakness, falling *History of present illness: Ms. Smiley is a pleasant 77-year-old female with history of CHF and A. fib with AICD in place, type 2 diabetes pretension, and hypertension who presented with acute change in mental status today. She presented to the ER after falling at home this morning and asking for help. Family says they believe she fell and made her way to a granddaughters bed and asked for help. EMS was called and brought her to the ER for further evaluation. On arrival, patient noted to have bruising of her left forehead concerning for trauma and was acutely altered with difficulty in answering questions. Work-up initiated with imaging of head finding no acute intracranial abnormality/stroke. Labs fairly unremarkable except for hyperglycemia. ER consulted medicine for admission. Patient admitted for observation. On arrival to the floor, patient has 2 brothers at bedside. Patient is unable to provide any history due to her expressive aphasia. Brother states she was normal yesterday and had her fall this morning. Has been complaining about feeling dehydrated for the past day or 2 prior to episode today. I deny any known fevers or other symptoms. No vomiting or diarrhea. Is a diabetic but has not been on medication for some time as her doctor had stopped her insulin to their knowledge. Unclear her last A1c or how well her diabetes is controlled. They deny any other previous neurologic symptoms, chest pain, cough, fevers, headaches or known trauma. [facility] Disclaimer: The information contained in this section may have been updated after the patient was seen, as this information can be updated by other users. Medical History Anxiety Atrial fibrillation CAD (coronary artery disease) Chronic systolic heart failure COPD (chronic obstructive pulmonary disease) Depression Diabetes mellitus, type 2 Dyspnea Edema History of gastroesophageal reflux (GERD) History of heart attack Hyperlipidemia Hypertension Non-ischemic cardiomyopathy Pacemaker PAF (paroxysmal atrial fibrillation) Surgical History AICD (automatic cardioverter/defibrillator) present History of hysterectomy History of tonsillectomy Family History Lung cancer Social History Smoking Status: Never smoker alcohol intake: never substance use type: denies use current occupational status: employed Travel in the last 8 weeks: None household members: family and children housing: house marital status: single caffeine: Yes Review of Systems Review of Systems Review of systems (narrative): 14 point review of systems performed, pertinent positives and negatives as per HPI Meds Home Medications and Allergies Home Medications Medication Instructions Recorded Confirmed Type budesonide-formoterol HFA 160 2 puff inhalation BID SHORTNESS OF 08/03/17 09/03/22 History mcg-4.5 mcg/actuation aerosol AIR inhaler (Symbicort) trazodone 50 mg tablet 50 mg PO HSP PRN Sleep 04/04/18 09/03/22 History furosemide 40 mg tablet 40 mg PO DAILY Fluid ##0 10/20/20 09/03/22 Rx ondansetron 4 mg disintegrating 4 mg PO TIDP PRN Nausea #10 tabs 02/28/22 09/03/22 Rx tablet sertraline 50 mg tablet 50 mg PO DAILY MOOD 03/01/22 09/03/22 History doxycycline hyclate 20 mg tablet 20 mg PO BID Infection 09/03/22 09/03/22 History isosorbide mononitrate 30 mg 30 mg PO DAILY ANGINA 09/03/22 09/03/22 History tablet,extended release 24 hr losartan 25 mg tablet 25 mg PO DAILY Hypertension 09/03/22 09/03/22 History metoprolol succinate 25 mg 25 mg PO DAILY Hypertension 09/03/22 09/03/22 History tablet,extended release 24 hr New Prescriptions to Start Prescriptions:
[2022-09-03 11:09] LABS: Coronavirus 19, PCR Not Detected (NotDetected); Influenza A, PCR Not Detected (NotDetected); Influenza B, PCR Not Detected (NotDetected)
--- NOTE | 2022-09-03 11:46 | HMH.PHAINT1 ---
Pharmacy Intervention Comments: MEDICATION RECONCILIATION COMPLETED ON PATIENT USING EXTERNAL FILL HISTORY FROM PHARMACY AND LIST FROM CARDIOLOGY OFFICE. -WILY MENSAH, NINGD
--- NOTE | 2022-09-03 11:56 | PC.NURSE ---
pt transported to room 213 by SRNA via WC. family at and pt has all of her belongings.
--- NOTE | 2022-09-03 12:02 | PC.NURSE ---
patient arrived by wheelchair from ED at 11:59
[2022-09-03 12:37] LABS: POC Glucose,Bedside 268 (70-110)
--- NOTE | 2022-09-03 13:51 | HMH.OTEV ---
OT Inpatient Evaluation Rehab OT IP Evaluation Start: 09/03/22 11:06 Freq: ONCE Status: Active Protocol: Document 09/03/22 13:40 [facility] (Rec: 09/03/22 13:51 [facility] [id number]) Rehab OT IP Assessment Subjective History Pt oriented to self, but unable to express her last name correctly. Pt was unable to verbalize her birthday or location. Pt was very disoriented. Pt was admitted via ED on 09/03/22 due to a fall . She was living in a home with family (son, daughter in law, grand children, etc) and had an unwitnessed fall with obvious signs of trauma on her head. Pt demonstrates expressive dysphasia and difficulty tracking. Pt did have a family member present during therapy evaluation. Family member reports she was independent with all ADLs and IADLs. She also still drove. She did not use a cane or walker during ambulation. Pt has a past medical history of: Anxiety Atrial fibrillation CAD (coronary artery disease) Chronic systolic heart failure COPD (chronic obstructive pulmonary disease) Depression Diabetes mellitus, type 2 Dyspnea Edema History of gastroesophageal reflux (GERD) History of heart attack Hyperlipidemia Hypertension Non-ischemic cardiomyopathy Pacemaker PAF (paroxysmal atrial fibrillation) Subjective It's scary. Objective Patient Orientation Person Upper Extremity Gross ROM WFL Bed Mobility bed mobility-scooting,bed mobility - supine/sit,bed mobility - rolling Assist Level
--- NOTE | 2022-09-03 13:54 | HMH.PTEV ---
Physical Therapy Evaluation Rehab PT IP Evaluation Start: 09/03/22 11:06 Freq: ONCE Status: Active Protocol: Document 09/03/22 13:43 [facility] (Rec: 09/03/22 13:54 [facility] [id number]) Subjective/History History History 77 yowf adm to [facility] with AMS and significant confusion. She suffered an unwitnessed fall at home with possible concussion vs CVA. CT scan essentially negative. Family reports she was independent with all mobility and ADLs prior to adm. Subjective Subjective Pt c/o dizziness and difficulty with word finding. Definite expressive aphasia noted and significant difficulty with visual tracking. Rehab PT IP Eval Objective Appearance Patient Behavior Appropriate Patient Orientation Person Difficulty following instructions moderate Speech Pattern Garbled,Aphasic Ambulation Patient Able to Ambulate Yes Ambulation Observation IP General Gait Pattern Observation Wide Based Gait Ambulation Distance (feet) 10 Ambulation Assistive Device None Ambulation Ability Contact Guard/Hand Hold Balance Ability to Arise Able, uses arms to help Sitting Balance Steady, safe Standing Balance Steady, wide stance Dynamic Sitting Balance Ability Good Dynamic Standing Balance Ability Fair Transfers Bed Transfer Ability Contact Guard/Hand Hold Chair Transfer Ability Contact Guard/Hand Hold Sit to Stand Bed Transfer Ability Contact Guard/Hand Hold Sit to Stand Chair Transfer Ability Contact Guard/Hand Hold Rehab PT IP prob,goals,plan Problems Date of Evaluation: 09/03/22 PT IP Problems Bed Mobility,Transfers,Gait Rehab Potential Rehab Potential Good Plan PT Intervention Plan Bed Mobility,Transfers,Gait, Self care,Therapeutic Exercise PT Plan Frequency BID Duration LOS Discharge Goals Bed Transfer Ability Supervision/Stand by Sit to Stand Chair Transfer Ability Supervision/Stand by Ambulation Assistive Device None Ambulation Distance (feet) 20 Discharge Plan PT Discharge Plan Pt is currently appropriate for return home once medically stable if she has 24 hr assist available. G -code Required No
--- NOTE | 2022-09-03 14:54 | HMH.SLAPHASI ---
Speech & Language Evaluation Speech/Language Aphasia Evaluation Start: 09/03/22 14:36 Freq: once Status: Complete Protocol: Document 09/03/22 14:36 [facility] (Rec: 09/03/22 14:53 [facility] [id number]) Aphasia Assessment/Goals/Plan Assessment Date of Evaluation: 09/03/22 Evaluation Type Initial Certification Assessment/Problems Pt assessed following demonstration of stroke like sx per MD order Does Patient Qualify for Service Yes Qualify/Failure Comment Based on assessment results and clinical observation, Shyanne Smiley would benefit from skilled speech therapy services to address cognitive- linguistic deficits, as well as expressive-receptive language skills. Plan Pt will be seen # times/week 3 for # weeks 4 Anticipate reaching STG in # weeks 2 Anticipate reaching LTG in # weeks 4 Pt/Guardian verbally ack understanding Yes of dx/prognosis/goals G -code Required No STG-Auditory Comprehension 1st Element 90 2nd Element 80 3rd Element 70 STG-Verbal Expressive Language Automatic Speech 80 Sentence Completion 80 Repetitive Abilities 80 Word Naming 80 STG-Attending/Orientation/Memory Orientation 80 Long-Term Goals Increase verbal expression skills to Yes: 80 communicate w/family & friends. Increase cognitive skills to communicate Yes: 80 w/family & friends Education Instructions provided Discussed assessment results as well as goals to be targeted during her time at [facility] with pt and their family, nursing, and care management all of which expressed understanding. Pt/Caregiver Able to Recall Information Able to recall/restate Speech & Language HPI History Present Illness Description of Patient Problem Pt was unable to provide name at this time. Pt was unable to verbalize her birthday or location. Pt was very disoriented. Pt was admitted via ED on 09/03/22 due to a fall . She was living in a home with family (son, daughter in law, grand children, etc) and
[2022-09-03 16:52] LABS: POC Glucose,Bedside 234 (70-110)
--- NOTE | 2022-09-03 19:30 | PC.NURSE ---
Pt is alert but garbled speech. Able to follow commands. VSS. Family at bedside throughout shift. No urine but LR started at 250 ml/hr. Urine specimen needed.
[2022-09-03 21:05] LABS: Hemoglobin A1C > 14.0 % (4.0-6.0)
[2022-09-04] VITALS (7 sets, daily range): BP systolic 116–143; BP diastolic 56–76; PULSE 64–75; RESP 16–20; TEMP 36.6–37.1; O2SAT 94–96; BMI 22.8
[2022-09-04 02:26] LABS: POC Glucose,Bedside 254 (70-110)
--- NOTE | 2022-09-04 04:07 | PC.NURSE ---
PATIENT CONTINUES TO HAVE GARBLED SPEECH. MUMBLES. LAUGHES INAPPROPRIATELY. FOLLOWS COMMANDS. NO FACIAL DROOP. PERRL. TONQUE MIDLINE. NO DRIFTS PRESENT. SIDE LASTER STAPLE AND DORSI-PLANTAR FLEXION EQUAL. VSS/AFEBRILE. NO INDICATIONS OF PAIN/DISCOMFORT. FSBSs ELEVATED. S/S INSULIN RECEIVED AT 2100 FOR FSBS 254. FAMILY AT BEDSIDE.
[2022-09-04 05:36] LABS: POC Glucose,Bedside 145 (70-110)
[2022-09-04 05:45] LABS: Microscopic, Urine URINE MICROSCOPIC (MICROSCOPIC)
[2022-09-04 05:47] LABS: Appearance,Urine CLEAR (Clear); Bilirubin,Urine Negative (Negative); Blood, Urine Negative (Negative); Color,Urine YELLOW (Yellow); Glucose,Urine (UA) 1+ (Negative); Ketones,Urine Negative (Negative); Leukocyte Esterase,Urine 1+ (Negative); Nitrate,Urine Negative (Negative); Protein,Urine Negative (Negative); Urobilinogen,Urine 0.2 EU/dl (0.2)
[2022-09-04 05:56] LABS: Bacteria,Urine Trace /lpf; Squamous Epithelial Cell,Urine Occasional #/hpf (0-5); WBC,Urine 20-50 #/hpf (0-3)
[2022-09-04 07:34] LABS: Basophils # 0.1 K/mm3 (0-0.2); Basophils % 0.8 % (0.1-2.0); Eosinophils # 0.1 K/mm3 (0.0-0.4); Eosinophils % 1.1 % (0.1-12.0); Hematocrit 48.4 % (37.0-47.0); Hemoglobin 15.7 g/dL (12.2-16.2); Lymphocytes # 1.9 K/mm3 (0.7-4.5); Mean Corpuscular HGB Conc 32.5 g/dL (31.8-35.4); Mean Corpuscular Hemoglobin 28.1 pg (27.0-31.2); Mean Corpuscular Volume 86.6 fl (81-99); Mean Platelet Volume 8.6 fl (7.4-10.4); Monocytes # 0.5 K/mm3 (0.1-1.0); Monocytes % 5.4 % (1.7-9.3); Neutrophils # 6.2 K/mm3 (1.8-7.8); Neutrophils % 70.7 % (37.0-80.0); Platelet Count 213 K/mm3 (142-424); Red Blood Count 5.59 M/mm3 (4.20-5.40); Red Cell Distribution Width 14.2 % (11.5-17.5); White Blood Count 8.8 K/mm3 (4.8-10.8)
[2022-09-04 07:39] LABS: Chloride 108 mmol/L (98-107); Potassium 3.6 mmoL/L (3.5-5.1); Sodium 139 mmol/L (136-145)
[2022-09-04 07:41] LABS: Alanine Aminotransferase 21 U/L (12-78); Aspartate Amino Transferase 27 U/L (14-36); Blood Urea Nitrogen 10 mg/dl (7-17); Creatinine Clearance Estimated 55 mL/min (50-200); Estimated Glomerular Filt Rate 97 ml/min (>60); GFR (African American) 118 ML/MIN (>60)
[2022-09-04 07:42] LABS: Albumin Level 3.3 g/dl (3.5-5.0); Albumin/Globulin Ratio 1.1 (1.1-1.8); Alkaline Phosphatase 95 U/L (38-126); Anion Gap 5.6 mEq/L (5-15); Bilirubin,Total 0.8 mg/dl (0.2-1.3); Calcium 8.8 mg/dl (8.4-10.2); Carbon Dioxide 29 mmol/L (22.0-30.0); Globulin 3.1 g/dL (1.3-3.2); Glucose 194 mg/dl (74-100); Magnesium 1.5 mg/dl (1.6-2.3); Total Protein,Serum 6.4 g/dl (6.3-8.2)
--- NOTE | 2022-09-04 11:05 | EXP.PN ---
Subjective *Date: 09/04/22 *Time: 11:05 Interval history: Date of service September 04, 2022 The patient reports no acute events overnight. She is accompanied by her son who is at bedside. He reports they live together. He describes a new expressive aphasia identified after her fall. He reports concerns with medication noncompliance. He reports that she has not been taking her Xarelto. CT of the head identified no acute changes and an MRI could not be obtained secondary to her noncompatible AICD. She is maintained on antiplatelet therapy and statin therapy. Speech therapy and PT have evaluated her. Her son is inquiring about discharge planning. Exam Data for Last 24 hours Vital signs and Labs for Last 24 Hours: Temp Pulse Resp BP Pulse Ox 98.1 F 75 20 139/73 94 L 09/04/22 07:55 09/04/22 07:55 09/04/22 07:55 09/04/22 07:55 09/04/22 07:55 Laboratory Results - last 24 hr 09/03/22 05:40: Urine Color Yellow, Urine Appearance Clear, Urine pH 7.0, Ur Specific [place] 1.020, Urine Protein Negative, Urine Glucose (UA) 1+, Urine Ketones Negative, Urine Blood Negative, Urine Nitrate Negative, Urine Bilirubin Negative, Urine Urobilinogen 0.2, Ur Leukocyte Esterase 1+ A, Urine RBC None, Urine WBC 20-50, Ur Squamous Epith Cells Occasional, Urine Bacteria Trace 09/03/22 09:10: Hemoglobin A1c > 14.0 H 09/03/22 11:00: SARS-CoV-2 (PCR) Not detected, Influenza A Untype (PCR) Not detected, Influenza Type B (PCR) Not detected 09/03/22 12:22: POC Glucose 268 H 09/03/22 16:45: POC Glucose 234 H 09/03/22 21:16: POC Glucose 254 H 09/04/22 05:29: POC Glucose 145 H 09/04/22 07:22: WBC 8.8, RBC 5.59 H, Hgb 15.7, Hct 48.4 H, MCV 86.6, MCH 28.1, MCHC 32.5, RDW 14.2, Plt Count 213, MPV 8.6, Neut % (Auto) 70.7, Lymph % (Auto) 22.0, [place] % (Auto) 5.4, Eos % (Auto) 1.1, Baso % (Auto) 0.8, Neut # (Auto) 6.2, Lymph # (Auto) 1.9, [place] # (Auto) 0.5, Eos # (Auto) 0.1, Baso # (Auto) 0.1 09/04/22 07:22: Sodium 139, Potassium 3.6, Chloride 108 H, Carbon Dioxide 29, Anion Gap 5.6, BUN 10 D, Creatinine 0.60, Estimated Creat Clear 55, Estimated GFR 97, Est GFR ( Amer) 118, Glucose 194 H D, Calcium 8.8, Magnesium 1.5 L, Total Bilirubin 0.8, AST 27, ALT 21, Alkaline Phosphatase 95, Total Protein 6.4, Albumin 3.3 L D, Globulin 3.1, Albumin/Globulin Ratio 1.1 I & O for Last 24 hours: Intake & Output 09/01/22 09/02/22 09/03/22 09/04/22 23:59 23:59 23:59 23:59 Intake Total 980 / 980 1360 / 1360 Output Total 0 / 0 350 / 350 Balance 980 / 980 1010 / 1010 Weight 69.2 kg 72.2 kg Constitutional Constitutional: no acute distress and cooperative *Routine HEENT Exam Head: Present normocephalic Eye: Present EOMI and PERRL ENT: Present mucous membranes moist *Routine Neck Exam Neck: Present supple; Absent lymphadenopathy *Routine Respiratory Exam Respiratory: Present CTA bilaterally *Routine Cardiovascular Exam Cardiovascular: Present RRR *Routine Abdominal Exam Abdominal: Present soft and normoactive bowel sounds; Absent tenderness *Routine Extremities Exam Extremities: Present full ROM, pulses intact and normal capillary refill *Routine Skin Exam Skin: Present warm *Routine Neurological Exam Neurological: Present alert, oriented X3, moving all extremities, normal tone, vision grossly intact and hearing grossly intact Comments: Expressive aphasia noted Routine Psychiatric Exam Psychiatric: Present cooperative Assessment and Plan *Assessment and plan (1) Expressive aphasia: Status: Acute Category: Medical Code(s): R47.01 - Aphasia (2) Concussion: Status: Acute Category: Medical Code(s): S06.0XAA - Concussion with loss of consciousness status unknown, initial encounter (3) Type 2 diabetes mellitus with hyperglycemia, without long-term current use of insulin: Status: Acute Category: Medical Code(s): E11.65 - Type 2 diabetes mellitus with hyperglycemia (4) Atrial fib/flutter, transie
[2022-09-04 12:22] LABS: POC Glucose,Bedside 215 (70-110)
[2022-09-04 17:20] LABS: POC Glucose,Bedside 238 (70-110)
--- NOTE | 2022-09-04 18:24 | PC.NURSE ---
Pt has been up to the chair multiple times this shift w/ standby assist. Pt can follow commands, but has trouble naming people. When asking her the names of people in the room, she has difficulty answering w/ their names. But as the day has progressed, pt has been able to speak in full sentences, w/ the occasional aphasia. Bilateral elementary school science teacher are equal and strong. Pt can stick her tongue out when asked. No facial drooping noted on either side. FSBS this shift have both required insulin. Appetite has been fair. Pt has been continent of urine this shift and is a standby assist to and from the restroom.
[2022-09-04 21:27] LABS: POC Glucose,Bedside 157 (70-110)
[2022-09-05] VITALS: PULSE 70
[2022-09-05 03:52] VITALS: BMI 23.2
[2022-09-05 04:00] VITALS: PULSE 70
--- NOTE | 2022-09-05 04:21 | PC.NURSE ---
patient is alert but disoriented. Having trouble speaking complete sentences and remembering names. No signs of facial droop. Equal development technical lead bilaterally. No drift noted. Patient denies any pain but had some pain in the left shoulder through the night. prn tylenol given. pt is stable on room air. vss. son at bedside.
[2022-09-05 05:20] LABS: POC Glucose,Bedside 226 (70-110)
[2022-09-05 08:00] VITALS: BP 150/70; PULSE 72; RESP 16; TEMP 36.8; O2SAT 96
[2022-09-05 08:11] LABS: Basophils # 0.1 K/mm3 (0-0.2); Basophils % 1.3 % (0.1-2.0); Eosinophils # 0.1 K/mm3 (0.0-0.4); Eosinophils % 1.6 % (0.1-12.0); Hematocrit 47.4 % (37.0-47.0); Hemoglobin 15.8 g/dL (12.2-16.2); Lymphocytes # 2.1 K/mm3 (0.7-4.5); Lymphocytes % 27.2 % (10-50); Mean Corpuscular HGB Conc 33.4 g/dL (31.8-35.4); Mean Corpuscular Hemoglobin 28.4 pg (27.0-31.2); Mean Corpuscular Volume 85.2 fl (81-99); Mean Platelet Volume 8.4 fl (7.4-10.4); Monocytes # 0.5 K/mm3 (0.1-1.0); Neutrophils # 4.8 K/mm3 (1.8-7.8); Neutrophils % 63.9 % (37.0-80.0); Platelet Count 231 K/mm3 (142-424); Red Blood Count 5.56 M/mm3 (4.20-5.40); Red Cell Distribution Width 14.1 % (11.5-17.5); White Blood Count 7.6 K/mm3 (4.8-10.8)
[2022-09-05 08:26] LABS: Chloride 109 mmol/L (98-107)
[2022-09-05 08:27] LABS: Potassium 3.7 mmoL/L (3.5-5.1); Sodium 139 mmol/L (136-145)
[2022-09-05 08:29] LABS: Blood Urea Nitrogen 12 mg/dl (7-17); Creatinine Clearance Estimated 56 mL/min (50-200); Estimated Glomerular Filt Rate 97 ml/min (>60); GFR (African American) 118 ML/MIN (>60)
[2022-09-05 08:30] LABS: Anion Gap 7.7 mEq/L (5-15); Carbon Dioxide 26 mmol/L (22.0-30.0); Glucose 198 mg/dl (74-100); Magnesium 1.8 mg/dl (1.6-2.3)
--- NOTE | 2022-09-05 09:12 | EXP.DC.SUM ---
General Admission date:: 09/03/22 Discharge date: 09/05/22 HPI HPI HPI: Ms. Smiley is a pleasant 77-year-old female with history of HFrEF, A. fib with AICD in place, type 2 diabetes uncontrolled, and hypertension who presented with acute changes in mental status today characterized as difficulty finding words to speak. She presented to the ER after falling at home this morning and asking for help. Family says they believe she fell and made her way to a granddaughters bed and asked for help. EMS was called and brought her to the ER for further evaluation. On arrival, patient noted to have bruising of her left forehead concerning for trauma and was acutely altered with difficulty in answering questions. Work-up initiated with CT imaging of head finding no acute intracranial abnormality/stroke. Labs with hyperglycemia. ER consulted medicine for admission. On arrival to the floor, patient has 2 brothers at bedside. Patient is unable to provide any history due to her expressive aphasia. Brother states she was normal yesterday and had her fall this morning. Has been complaining about feeling dehydrated for the past day or 2 prior to episode today. Hospital Course Hospital Course Hospital Course: The patient was admitted to the medical floor with telemetry monitoring. Her rhythm remained sinus. Her April cardiology evaluation was reviewed. Her April echocardiogram identified an EF 30%. Her August 2021 carotid Doppler study was reviewed. Her February 28, 2022 CTA of neck & head were reviewed. Her son at bedside that remained with her throughout her hospital stay identified and reported medical noncompliance. MRI of the brain was precluded by noncompatible MRI AICD. Speech evaluated the patient and made their recommendations. PT and OT evaluated the patient as well. She was maintained on dual antiplatelet therapy with high-dose statin therapy. Her chronic factor Xa inhibitor was restarted. The patient identified improvement and inquired about discharge home. Her son was at bedside on day of discharge for discharge planning. I was accompanied by Luz Elena Pittman RN to review discharge planning with the patient and her son. The patient plans to live with her son over the next few weeks. We have recommended medication compliance and discussed triple anticoagulation therapy including risks of GI bleeding and benefits of further stroke prevention. She will be maintained on aspirin 81 mg p.o. daily, Plavix 75 mg daily for 30 days then transition to single antiplatelet therapy agent. She will continue with her statin therapy. She will continue with her factor Xa inhibitor for atrial fibrillation. She understands the importance of follow-up with her lens blocker in a timely fashion to discuss repeat echocardiogram. Her RoPE=1. She will follow-up with her PCP (Kenna Mccurdy APRN) to discuss diabetes and hypertension care. We have made a follow-up appointment with a local neurologist for 2 weeks to discuss stroke risk factors, stroke prevention and further treatment recommendations. We have recommended outpatient speech therapy follow-up and therapy concerning her aphasia. We have also recommended outpatient physical therapy and Occupational Therapy evaluations. We have recommended routine blood sugar monitoring and compliance with therapy prescribed for her uncontrolled diabetes (hemoglobin A1c>14%). The patient will be discharged to the care of her son with follow-up appointments scheduled. Exam Data for Last 24 hours Vital signs and Labs for Last 24 Hours: Temp Pulse Resp BP Pulse Ox 98.2 F 72 16 150/70 H 96 09/05/22 08:00 09/05/22 08:00 09/05/22 08:00 09/05/22 08:00 09/05/22 08:00 Laboratory Results - last 24 hr 09/04/22 11:59: POC Glucose 215 H 09/04/22 17:05: POC Glucose 238 H 09/04/22 21:17: POC Glucose 157 H 09/05/22 05:11: POC Glucose 226 H 09/05/22 07:29: WBC 7.6, RBC 5.56 H, Hgb 15.8, Hct 47.4 H, MCV 85.2, MCH 28.
--- NOTE | 2022-09-05 10:32 | HMH.PHAINT1 ---
Pharmacy Intervention Comments: DISCHARGE MEDICATION COUNSELING PROVIDED TO PATIENT AND HER TWO SONS, DISCUSSED STARTING THE FOLLOWING: -ELIQUIS (BLOOD THINNER, TWICE DAILY, BLEED/BRUISE RISK, BUMP HEAD = GO TO ER, BLEED LOCATION AND APPEARANCE) -ASPIRIN (ANTIPLATELET, DAILY, BLEED/BRUISE RISK, BUMP HEAD = GO TO ER, BLEED LOCATION AND APPEARANCE) -PLAVIX (ANTIPLATELET, DAILY, BLEED/BRUISE RISK, BUMP HEAD = GO TO ER, BLEED LOCATION AND APPEARANCE) -ATORVASTATIN (FOR CHOLESTEROL, AT BEDTIME, WATCH FOR MUSCLE PAIN/WEAKNESS AND IF OCCURS TALK TO MD) -JARDIANCE (DIABETES/CARDIOLOGY OUTCOMES, DAILY, TAKE WITH FOOD, LOW BLOOD SUGAR, GENITAL YEAST INFECTION RISK) -LANTUS (DIABETES, 10 UNITS SQ DAILY, PATIENT/SONS STATE SHE HAS USED INSULIN PEN BEFORE, LOW BLOOD SUGAR RISK) -STOP TAKING THE DOXYCYCLINE. PATIENT VERBALIZED NO QUESTIONS AT THIS TIME.
--- NOTE | 2022-09-08 15:08 | CARE MANAGER ---
Patient needs home PT/OT/ST and would like to use home health, patient states that she is wanting home health and does not have a preference. Faxed orders, demographics and patient information to [facility] they will see the patient in the am and make contact with her.
== END 2022-09-05 11:12 | disposition home or self-care (01) ==
LOC: ER 11:07 → 2ND 11:26
PROVIDERS: Family Medicine; Student in an Organized Health Care Education/Training Program; Admitting Provider Internal Medicine Adolescent Medicine; Emergency Provider Ophthalmology; PCP Family Medicine; Visit Provider Internal Medicine Adolescent Medicine
DX: I63.9 Cerebral infarction, unspecified (principal); R47.01 Aphasia; S06.0XAA Concussion with loss of consciousness status unknown, initial encounter; S00.03XA Contusion of scalp, initial encounter; I25.118 Atherosclerotic heart disease of native coronary artery with other forms of angina pectoris; R41.82 Altered mental status, unspecified; I48.0 Paroxysmal atrial fibrillation; E11.65 Type 2 diabetes mellitus with hyperglycemia; Z95.810 Presence of automatic (implantable) cardiac defibrillator; Z20.822 Contact with and (suspected) exposure to COVID-19; I11.0 Hypertensive heart disease with heart failure; I50.22 Chronic systolic (congestive) heart failure; W18.39XA Other fall on same level, initial encounter; Y92.009 Unspecified place in unspecified non-institutional (private) residence as the place of occurrence of the external cause
CPT/HCPCS: G0378; 36415; 70450; 71045; 72125; 80048; 80053; 81001; 82140; 82803; 82962; 83036; 83735; 85007; 85025; 87086; 92523; 93005; 94640; 97162; 97166; 97530; 99285; C9803; J3475; U0003; U0005

== ENCOUNTER → 2022-10-04 15:18 | Outpatient (CLI) | payer MEDICARE, OTHER, SELFPAY ==
--- NOTE | 2022-10-04 15:28 | XR_ITS ---
PROCEDURE INFORMATION: Exam: XR Lumbosacral Spine Exam date and time: 10/04/2022 3:46 PM Age: 77 years old Clinical indication: Pain and injury or trauma; Fall; Sprain or strain, lumbar ligaments; Lumbago with sciatica; Bilateral; Additional info: Back gibbons following a fall TECHNIQUE: Imaging protocol: Radiologic exam of the lumbosacral spine. Views: 2 or 3 views. COMPARISON: No relevant prior studies available. FINDINGS: Bones/joints: Lumbar spondylosis. Diffuse changes of disc degeneration. Multilevel advanced hypertrophic facet changes. Less than 2 mm degenerative anterolisthesis of L3 with respect L4. Approximate 2.5 mm anterolisthesis of L4 with respect to L5 Soft tissues: Unremarkable. IMPRESSION: 1. No evidence of acute osseous injury. 2. Lumbar spondylosis with multilevel disc degeneration and degenerative anterolisthesis most pronounced at L4-L5.
--- NOTE | 2022-10-04 15:28 | XR_ITS ---
PROCEDURE INFORMATION: Exam: XR Right Hip Exam date and time: 10/04/2022 3:46 PM Age: 77 years old Clinical indication: Pain and injury or trauma; Fall; Sprain or strain; Bilateral; Hip pain; Right hip; Additional info: Fall, right hip pain TECHNIQUE: Imaging protocol: Radiologic exam of the right hip. Views: 2 or 3 views hip with pelvis when performed. COMPARISON: No relevant prior studies available. FINDINGS: Bones/joints: Mild -moderate narrowing of the right hip joint most pronounced along the mid and inferior margin. Foci of subcortical cystic erosive change in the lateral acetabular rim superiorly. Osteopenia. Soft tissues: Unremarkable. IMPRESSION: No definitive evidence of fracture. Clinically correlate if appropriate, follow-up with computerized tomography.
--- NOTE | 2022-10-04 15:28 | CT_ITS ---
FINAL REPORT CLINICAL HISTORY: Embolic stroke 1 month ago COMPARISON: 09/03/2022 FINDINGS: Axial images of the head were obtained without contrast. Coronal reformatted images were also obtained. This study was performed with techniques to keep radiation doses as low as reasonably achievable (ALARA). Individualized dose reduction techniques using automated exposure control or adjustment of mA and/or kV according to the patient's size were employed. There is generalized age-appropriate atrophy. Periventricular low-attenuation areas are seen consistent with mild chronic ischemic changes. There is no evidence of intracranial hemorrhage or mass. There is an area of of low attenuation in the left parietal lobe consistent with acute to subacute infarct. There are 2 small areas of mildly increased attenuation in this region measuring 5 and 9 mm. These likely represent areas of hemorrhagic transformation. This finding is new from the prior exam. There is no evidence of shift of the midline structures. No skull abnormality is seen on the bone window images. IMPRESSION: Atrophy and mild periventricular chronic ischemic changes. Acute to subacute left parietal infarct with small areas of presumed hemorrhagic transformation. Can be further evaluated with follow-up CT or follow-up MRI. Reviewed, Interpreted and Dictated by Antonio De Guzman III, MD Transcribed by Aleisha Loya Authenticated and . [facility]
== END ==
PROVIDERS: PCP Nurse Practitioner Family; Visit Provider Specialist
DX: M54.50 Low back pain, unspecified (principal); I63.9 Cerebral infarction, unspecified; M25.551 Pain in right hip
CPT/HCPCS: 70450; 72100; 73502

== ENCOUNTER → 2022-11-05 10:26 | Outpatient (CLI) | payer MEDICARE, OTHER, SELFPAY ==
--- NOTE | 2022-11-05 10:27 | CT_ITS ---
FINAL REPORT TECHNIQUE: Axial CT images were performed through the head. Coronal reformatted images were submitted. This study was performed with techniques to keep radiation doses as low as reasonably achievable (ALARA). Individualized dose reduction techniques using automated exposure control or adjustment of mA and/or kV according to the patient's size were employed. 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 There is moderate diffuse atrophy. There are areas of encephalomalacia in the left posterior parietal and left posterior temporal lobe. The previously noted intra-axial hemorrhage has resolved. There is no new area of hemorrhage. The ventricles are normal in size. There is no mass or edema identified. There is no abnormal extra-axial fluid seen. There is mild lobular mucoperiosteal thickening in the left maxillary sinus. No air-fluid levels identified. IMPRESSION: Patchy abnormal decreased attenuation in the left posterior parietal and temporal lobes, probably due to sequela of prior infarcts. Previously noted hemorrhage has resolved. No acute intracranial abnormality. Reviewed, Interpreted and Dictated by Km Morgan MD Transcribed by Yazmin Cummings Authenticated and [facility]
== END ==
PROVIDERS: PCP Nurse Practitioner Family; Visit Provider Specialist
DX: I63.9 Cerebral infarction, unspecified (principal)
CPT/HCPCS: 70450

== ENCOUNTER → 2022-11-12 06:40 | Outpatient (CLI) | payer MEDICARE, OTHER, SELFPAY | PROVIDERS: PCP Nurse Practitioner Family; Visit Provider Internal Medicine | DX: I25.118 Atherosclerotic heart disease of native coronary artery with other forms of angina pectoris (principal); I42.8 Other cardiomyopathies; I63.9 Cerebral infarction, unspecified; R06.02 Shortness of breath | CPT/HCPCS: 78452; 93017; 93306; A9502; J2785 ==

== ENCOUNTER → 2022-11-25 10:03 | Outpatient (CLI) | payer MEDICARE, OTHER, SELFPAY ==
[2022-11-25 11:11] LABS: Alanine Aminotransferase 20 U/L (12-78); Albumin Level 3.9 g/dl (3.5-5.0); Alkaline Phosphatase 136 U/L (38-126); Aspartate Amino Transferase 28 U/L (14-36); Bilirubin,Indirect 0.7 mg/dL (0.0-0.9); Bilirubin,Total 0.7 mg/dl (0.2-1.3); Bilirubin,Unconjugated 0.7 mg/dL (0.0-1.1); Cholesterol 148 mg/dl (140-200); HDL Cholesterol 37 mg/dl (40-60); Total Protein,Serum 6.7 g/dl (6.3-8.2); Triglycerides 178 mg/dl (30-150); VLDL Cholesterol 36 mg/dL (0-40)
[2022-11-25 11:21] LABS: Direct LDL Cholesterol 83.79 mg/dL (100-129)
== END ==
PROVIDERS: PCP Nurse Practitioner Family; Visit Provider Physician Assistant
DX: E78.5 Hyperlipidemia, unspecified (principal); I10 Essential (primary) hypertension; I25.118 Atherosclerotic heart disease of native coronary artery with other forms of angina pectoris; I42.8 Other cardiomyopathies; I48.0 Paroxysmal atrial fibrillation; I50.22 Chronic systolic (congestive) heart failure; Z95.810 Presence of automatic (implantable) cardiac defibrillator
CPT/HCPCS: 36415; 80061; 80076

== ENCOUNTER 2023-02-08 07:02 | Day surgery (SDC) | payer MEDICARE, OTHER, SELFPAY ==
[2023-02-04 13:00] VITALS: BMI 25.0
[2023-02-08 07:22] VITALS: BP 128/74; PULSE 69; RESP 18; TEMP 36.6; O2SAT 96
[2023-02-08 07:29] LABS: POC Glucose,Bedside 172 (70-110)
[2023-02-08 08:25] VITALS: BP 152/66; PULSE 66; RESP 18; O2SAT 98
[2023-02-08 08:30] VITALS: BP 137/66; PULSE 67; RESP 18; O2SAT 97
[2023-02-08 08:35] VITALS: BP 152/68; PULSE 64; RESP 18; O2SAT 100
[2023-02-08 08:40] VITALS: BP 141/69; PULSE 63; RESP 18; O2SAT 100
[2023-02-08 08:52] VITALS: BP 123/79; PULSE 65; RESP 17; TEMP 36.1; O2SAT 97
== END 2023-02-08 08:57 | disposition home or self-care (01) ==
PROVIDERS: PCP Nurse Practitioner Family; Visit Provider Ophthalmology
DX: E11.36 Type 2 diabetes mellitus with diabetic cataract (principal); H25.9 Unspecified age-related cataract
CPT/HCPCS: 66984; 82962; V2632

== ENCOUNTER 2023-02-22 07:03 | Day surgery (SDC) | payer MEDICARE, OTHER, SELFPAY ==
[2023-02-17 10:28] VITALS: BMI 25.0
[2023-02-22 07:38] VITALS: BP 125/54; PULSE 70; RESP 16; TEMP 36.1; O2SAT 96
[2023-02-22 08:24] VITALS: BP 139/71; PULSE 65; RESP 17; O2SAT 98
[2023-02-22 08:29] VITALS: BP 146/70; PULSE 64; RESP 16; O2SAT 97
[2023-02-22 08:34] VITALS: BP 144/71; PULSE 62; RESP 16; O2SAT 99
[2023-02-22 08:40] VITALS: BP 121/60; PULSE 66; RESP 18; O2SAT 97
[2023-02-22 09:11] LABS: POC Glucose,Bedside 147 (70-110)
== END 2023-02-22 08:58 | disposition home or self-care (01) ==
PROVIDERS: PCP Nurse Practitioner Family; Visit Provider Ophthalmology
DX: E11.36 Type 2 diabetes mellitus with diabetic cataract (principal); H25.9 Unspecified age-related cataract
CPT/HCPCS: 66984; 82962; V2632

== ENCOUNTER → 2023-05-31 08:58 | Outpatient (CLI) | payer MEDICARE, OTHER, SELFPAY ==
[2023-05-31 09:20] LABS: Basophils % 0.4 % (0.1-2.0); Eosinophils # 0.1 K/mm3 (0.0-0.4); Eosinophils % 1.4 % (0.1-12.0); Hematocrit 51.2 % (37.0-47.0); Hemoglobin 17.3 g/dL (12.2-16.2); Lymphocytes % 22.7 % (10-50); Mean Corpuscular HGB Conc 33.9 g/dL (31.8-35.4); Mean Corpuscular Hemoglobin 30.3 pg (27.0-31.2); Mean Corpuscular Volume 89.5 fl (81-99); Mean Platelet Volume 8.3 fl (7.4-10.4); Monocytes # 0.6 K/mm3 (0.1-1.0); Monocytes % 6.8 % (1.7-9.3); Neutrophils % 68.8 % (37.0-80.0); Platelet Count 228 K/mm3 (142-424); Red Blood Count 5.72 M/mm3 (4.20-5.40); Red Cell Distribution Width 14.3 % (11.5-17.5); White Blood Count 8.6 K/mm3 (4.8-10.8)
[2023-05-31 09:57] LABS: Alanine Aminotransferase 33 U/L (12-78); Albumin Level 4.3 g/dl (3.5-5.0); Alkaline Phosphatase 154 U/L (38-126); Anion Gap 14.8 mEq/L (5-15); Aspartate Amino Transferase 39 U/L (14-36); Bilirubin,Direct 0.2 mg/dl (0.0-0.4); Bilirubin,Indirect 0.4 mg/dL (0.0-0.9); Bilirubin,Total 0.6 mg/dl (0.2-1.3); Bilirubin,Unconjugated 0.3 mg/dL (0.0-1.1); Blood Urea Nitrogen 18 mg/dl (7-17); Calcium 9.6 mg/dl (8.4-10.2); Carbon Dioxide 26 mmol/L (22.0-30.0); Chloride 102 mmol/L (98-107); Chol/HDL Ratio 2.6 (1-3.5); Cholesterol 100 mg/dl (140-200); Estimated Glomerular Filt Rate 70 ml/min (>60); GFR (African American) 84 ML/MIN (>60); Glucose 285 mg/dl (74-100); HDL Cholesterol 38 mg/dl (40-60); Magnesium 1.8 mg/dl (1.6-2.3); Potassium 4.8 mmoL/L (3.5-5.1); Sodium 138 mmol/L (136-145); Total Protein,Serum 7.2 g/dl (6.3-8.2); Triglycerides 253 mg/dl (30-150); VLDL Cholesterol 51 mg/dL (0-40)
[2023-05-31 10:08] LABS: Direct LDL Cholesterol 40.51 mg/dL (100-129)
[2023-05-31 10:27] LABS: Thyroid Stimulating Hormone 2.82 uIU/mL (0.465-4.68)
== END ==
PROVIDERS: PCP Nurse Practitioner Family; Visit Provider Nurse Practitioner
DX: E11.65 Type 2 diabetes mellitus with hyperglycemia (principal); E78.5 Hyperlipidemia, unspecified; I50.22 Chronic systolic (congestive) heart failure; Z79.4 Long term (current) use of insulin; Z79.84 Long term (current) use of oral hypoglycemic drugs
CPT/HCPCS: 36415; 80048; 80061; 80076; 83735; 84439; 84443; 85025

== ENCOUNTER → 2023-07-12 14:18 | Outpatient (CLI) | payer MEDICARE, OTHER, SELFPAY ==
[2023-07-12 15:33] LABS: Basophils % 0.2 % (0.1-2.0); Eosinophils # 0.1 K/mm3 (0.0-0.4); Eosinophils % 0.7 % (0.1-12.0); Hematocrit 49.1 % (37.0-47.0); Hemoglobin 17.2 g/dL (12.2-16.2); Lymphocytes # 2.6 K/mm3 (0.7-4.5); Lymphocytes % 22.9 % (10-50); Mean Corpuscular Hemoglobin 30.6 pg (27.0-31.2); Mean Corpuscular Volume 87.3 fl (81-99); Mean Platelet Volume 8.7 fl (7.4-10.4); Monocytes # 0.7 K/mm3 (0.1-1.0); Monocytes % 5.8 % (1.7-9.3); Neutrophils # 7.9 K/mm3 (1.8-7.8); Neutrophils % 70.3 % (37.0-80.0); Platelet Count 237 K/mm3 (142-424); Red Blood Count 5.63 M/mm3 (4.20-5.40); Red Cell Distribution Width 14.4 % (11.5-17.5); White Blood Count 11.2 K/mm3 (4.8-10.8)
[2023-07-12 16:32] LABS: Alanine Aminotransferase 25 U/L (12-78); Albumin/Globulin Ratio 1.4 (1.1-1.8); Alkaline Phosphatase 107 U/L (38-126); Aspartate Amino Transferase 30 U/L (14-36); Bilirubin,Total 0.8 mg/dl (0.2-1.3); Blood Urea Nitrogen 13 mg/dl (7-17); Calcium 9.4 mg/dl (8.4-10.2); Carbon Dioxide 25 mmol/L (22.0-30.0); Chloride 105 mmol/L (98-107); Estimated Glomerular Filt Rate 70 ml/min (>60); GFR (African American) 84 ML/MIN (>60); Globulin 2.8 g/dL (1.3-3.2); Glucose 166 mg/dl (74-100); Sodium 137 mmol/L (136-145); Total Protein,Serum 6.8 g/dl (6.3-8.2)
[2023-07-12 16:38] LABS: Hemoglobin A1C 9.8 % (4.0-6.0)
== END ==
PROVIDERS: PCP Nurse Practitioner Family; Visit Provider Specialist
DX: D75.1 Secondary polycythemia (principal); E11.65 Type 2 diabetes mellitus with hyperglycemia; I63.9 Cerebral infarction, unspecified; Z79.4 Long term (current) use of insulin
CPT/HCPCS: 36415; 80053; 83036; 85025

== ENCOUNTER → 2023-07-13 13:07 | Outpatient (CLI) | payer MEDICARE, OTHER, SELFPAY ==
[2023-07-13 15:27] LABS: Ferritin 17.9 ng/ml (11.1-264)
[2023-07-13 15:43] LABS: Vitamin B12 356 pg/mL (239-931)
== END ==
PROVIDERS: PCP Nurse Practitioner Family; Visit Provider Specialist
DX: D75.1 Secondary polycythemia (principal); E83.10 Disorder of iron metabolism, unspecified; Z86.73 Personal history of transient ischemic attack (TIA), and cerebral infarction without residual deficits; E11.65 Type 2 diabetes mellitus with hyperglycemia; Z79.4 Long term (current) use of insulin
CPT/HCPCS: 36415; 81270; 82607; 82668; 82728; 82746

== ENCOUNTER → 2023-07-28 11:07 | Outpatient (CLI) | payer MEDICARE, OTHER, SELFPAY ==
[2023-07-28 12:49] VITALS: BMI 26.4
[2023-07-28 12:56] LABS: Basophils # 0.1 K/mm3 (0-0.2); Basophils % 0.5 % (0.1-2.0); Eosinophils # 0.1 K/mm3 (0.0-0.4); Eosinophils % 0.9 % (0.1-12.0); Hematocrit 47.4 % (37.0-47.0); Hemoglobin 15.8 g/dL (12.2-16.2); Lymphocytes # 2.7 K/mm3 (0.7-4.5); Lymphocytes % 25.6 % (10-50); Mean Corpuscular HGB Conc 33.5 g/dL (31.8-35.4); Mean Corpuscular Hemoglobin 29.6 pg (27.0-31.2); Mean Corpuscular Volume 88.5 fl (81-99); Mean Platelet Volume 8.2 fl (7.4-10.4); Monocytes # 0.5 K/mm3 (0.1-1.0); Monocytes % 4.8 % (1.7-9.3); Neutrophils # 7.3 K/mm3 (1.8-7.8); Neutrophils % 68.3 % (37.0-80.0); Platelet Count 241 K/mm3 (142-424); Red Blood Count 5.35 M/mm3 (4.20-5.40); Red Cell Distribution Width 14.2 % (11.5-17.5); White Blood Count 10.7 K/mm3 (4.8-10.8)
[2023-08-07 14:15] LABS: Interpretation: Negative (.)
[2023-08-17 08:26] LABS: PDF: SCANNED IMAGE
== END ==
LOC: LAB 11:09
PROVIDERS: PCP Nurse Practitioner Family; Visit Provider Internal Medicine Medical Oncology
DX: D61.818 Other pancytopenia; D75.1 Secondary polycythemia; R79.1 Abnormal coagulation profile
CPT/HCPCS: 36415; 81206; 85025

== ENCOUNTER → 2023-08-24 14:10 | Outpatient (CLI) | payer MEDICARE, OTHER, SELFPAY | LOC: SL 14:11 | PROVIDERS: PCP Nurse Practitioner Family; Visit Provider Specialist | DX: G47.33 Obstructive sleep apnea (adult) (pediatric) (principal); G47.36 Sleep related hypoventilation in conditions classified elsewhere; I63.412 Cerebral infarction due to embolism of left middle cerebral artery; R06.02 Shortness of breath; D75.1 Secondary polycythemia | CPT/HCPCS: G0399 ==

== ENCOUNTER 2023-11-22 12:38 | Outpatient (CLI) | payer MEDICARE, OTHER, SELFPAY ==
[2023-11-22 12:44] LABS: Basophils # 0.1 K/mm3 (0-0.2); Basophils % 0.6 % (0.1-2.0); Eosinophils # 0.1 K/mm3 (0.0-0.4); Eosinophils % 1.1 % (0.1-12.0); Hematocrit 48.9 % (37.0-47.0); Hemoglobin 15.6 g/dL (12.2-16.2); Lymphocytes # 2.3 K/mm3 (0.7-4.5); Lymphocytes % 21.9 % (10-50); Mean Corpuscular HGB Conc 31.8 g/dL (31.8-35.4); Mean Corpuscular Hemoglobin 30.8 pg (27.0-31.2); Mean Corpuscular Volume 96.8 fl (81-99); Mean Platelet Volume 8.7 fl (7.4-10.4); Monocytes # 0.5 K/mm3 (0.1-1.0); Monocytes % 4.8 % (1.7-9.3); Neutrophils # 7.3 K/mm3 (1.8-7.8); Neutrophils % 71.6 % (37.0-80.0); Platelet Count 241 K/mm3 (142-424); Red Blood Count 5.05 M/mm3 (4.20-5.40); White Blood Count 10.2 K/mm3 (4.8-10.8)
[2023-11-22 13:41] LABS: Chloride 100 mmol/L (98-107); Potassium 5.1 mmoL/L (3.5-5.1); Sodium 136 mmol/L (136-145)
[2023-11-22 13:43] LABS: Blood Urea Nitrogen 29 mg/dl (7-17); Estimated Glomerular Filt Rate 40 ml/min (>60); GFR (African American) 48 ML/MIN (>60)
[2023-11-22 13:44] LABS: Alanine Aminotransferase 25 U/L (12-78); Albumin/Globulin Ratio 1.5 (1.1-1.8); Alkaline Phosphatase 156 U/L (38-126); Anion Gap 10.1 mEq/L (5-15); Aspartate Amino Transferase 27 U/L (14-36); Bilirubin,Total 0.8 mg/dl (0.2-1.3); Calcium 10.2 mg/dl (8.4-10.2); Carbon Dioxide 31 mmol/L (22.0-30.0); Chol/HDL Ratio 3.3 (1-3.5); Cholesterol 105 mg/dl (140-200); Globulin 2.6 g/dL (1.3-3.2); HDL Cholesterol 32 mg/dl (40-60); Total Protein,Serum 6.6 g/dl (6.3-8.2); Triglycerides 260 mg/dl (30-150); VLDL Cholesterol 52 mg/dL (0-40)
[2023-11-22 13:55] LABS: Direct LDL Cholesterol 44.11 mg/dL (100-129)
[2023-11-22 14:15] LABS: Thyroid Stimulating Hormone 4.46 uIU/mL (0.465-4.68)
[2023-11-22 14:20] LABS: Ferritin 27.3 ng/ml (11.1-264)
[2023-11-22 14:50] LABS: Glucose 407 mg/dl (74-100)
[2023-11-22 17:41] LABS: Vitamin B12 364 pg/mL (239-931)
[2023-11-22 18:06] LABS: Hemoglobin A1C 10.5 % (4.0-6.0)
== END 2023-11-22 23:59 | disposition home or self-care (01) ==
LOC: LAB.DROPOF 12:38
PROVIDERS: PCP Nurse Practitioner Family; Visit Provider Nurse Practitioner Family
DX: R42 Dizziness and giddiness; I10 Essential (primary) hypertension; E13.9 Other specified diabetes mellitus without complications; Z79.4 Long term (current) use of insulin
CPT/HCPCS: 80053; 80061; 82607; 82728; 83036; 84443; 85025

== ENCOUNTER 2023-12-07 10:23 | Outpatient (CLI) | payer MEDICARE, OTHER, SELFPAY ==
--- NOTE | 2023-12-07 10:24 | CT_ITS ---
FINAL REPORT CLINICAL HISTORY: dizziness, hx tia 1 year ago COMPARISON: 11/05/2022 FINDINGS: Axial images of the head were obtained without contrast. Coronal and sagittal reformatted images were also obtained. This study was performed with techniques to keep radiation doses as low as reasonably achievable (ALARA). Individualized dose reduction techniques using automated exposure control or adjustment of mA and/or kV according to the patient's size were employed. There is generalized age-appropriate atrophy. Periventricular low-attenuation areas are seen consistent with mild chronic ischemic changes. There is a focus of left parietal encephalomalacia that has progressed since the prior exam, consistent with an evolving infarct. There is no evidence of intracranial hemorrhage or mass. There is no evidence of acute infarct. There is no evidence of shift of the midline structures. No skull abnormality is seen on the bone window images. IMPRESSION: Atrophy and mild periventricular chronic ischemic changes. Left parietal encephalomalacia which has progressed since the prior exam consistent with an evolving infarct. No acute intracranial abnormality is identified. Reviewed, Interpreted and Dictated by Antonio De Guzman III, MD Transcribed by Lilibeth Pedroza Authenticated and [facility]
== END 2023-12-07 23:59 | disposition home or self-care (01) ==
LOC: RAD 10:24
PROVIDERS: PCP Nurse Practitioner Family; Visit Provider Nurse Practitioner Family
DX: R42 Dizziness and giddiness (principal)
CPT/HCPCS: 70450

== ENCOUNTER 2024-01-16 20:25 | Emergency (ER) | payer MEDICARE, OTHER, SELFPAY ==
[2024-01-16 20:26] VITALS: BP 139/75; PULSE 65; RESP 18; TEMP 36.8; O2SAT 98; BMI 26.2
--- NOTE | 2024-01-16 20:29 | HMH.EDGENADL ---
Discharge Plan Disposition Patient Disposition: Home, Self-Care Condition: Good Prescriptions Prescriptions: No Action empagliflozin 25 mg tablet 25 mg PO DAILY Eliquis 5 mg tablet 5 mg PO BID atorvastatin 80 mg tablet 80 mg PO DAILY Repatha SureClick 140 mg/mL pen injector 140 mg SQ Q2W isosorbide mononitrate 30 mg tablet extended release 24 hr 30 mg PO DAILY metoprolol succinate 25 mg tablet extended release 24 hr 25 mg PO DAILY sertraline 50 mg tablet 50 mg PO DAILY trazodone 50 mg tablet 50 mg PO HS PRN (Reason: Sleep) spironolactone 25 mg tablet 25 mg PO DAILY furosemide 20 mg tablet 20 mg PO DAILY Qty: 90 0RF semaglutide 0.25 mg or 0.5 mg (2 mg/3 mL) pen injector 0.5 mg SQ WEEKLY 30 Days Qty: 3.68 2RF clopidogrel 75 mg tablet 75 mg PO DAILY Qty: 90 3RF Entresto 24-26 mg tablet 1 tab PO BID Qty: 60 11RF insulin glargine 100 unit/mL (3 mL) insulin pen 12 unit SQ BID 90 Days Qty: 21.6 2RF Referrals Follow up/Referrals: Elsie Mccurdy APRN [Primary Care Provider] - See instructions Activity Restrictions/Add. Instructions Additional Instructions/Restrictions: Please follow-up with your PCP closely. Return to ER for any worsening signs or symptoms as needed Clinical Impressions Clinical Impression: Asthenia Instructions Patient Instructions: DI for Muscle Weakness Discharge ED Provider: Rodrigue Orozco General Adult HPI <NATHAN Wilder - Last Filed: 01/16/24 22:43> General Chief complaint: Weakness Stated complaint: weak, SOA Time Seen by Provider: 01/16/24 20:29 History of Present Illness HPI narrative: Patient presents for evaluation of generalized weakness. Patient states that she has had generalized weakness all day especially with exertion. She states her arms and legs feel tired . She denies any focal neurologic deficits however she started feeling some funny feelings in her chest which prompted her to come to the emergency department. Patient does have a history of both a pacemaker and a stroke in the last calendar year. Currently she denies chest pain fever chills hemoptysis hematochezia melena nausea vomiting diarrhea and her Glascow coma score is 15 NIH stroke score is 0 Related Data Home Medications Medication Instructions Recorded Confirmed empagliflozin 25 mg tablet 25 mg PO DAILY Diabetes 08/25/23 01/16/24 apixaban 5 mg tablet (Eliquis) 5 mg PO BID 11/22/23 01/16/24 atorvastatin 80 mg tablet 80 mg PO DAILY 11/22/23 01/16/24 evolocumab 140 mg/mL subcutaneous 140 mg SQ Q2W 11/22/23 01/16/24 pen injector (Rajendra Jones) isosorbide mononitrate 30 mg 30 mg PO DAILY 11/22/23 01/16/24 tablet,extended release 24 hr metoprolol succinate 25 mg 25 mg PO DAILY 11/22/23 01/16/24 tablet,extended release 24 hr sertraline 50 mg tablet 50 mg PO DAILY 11/22/23 01/16/24 spironolactone 25 mg tablet 25 mg PO DAILY 11/22/23 01/16/24 trazodone 50 mg tablet 50 mg PO HS PRN Sleep 11/22/23 01/16/24 Previous Rx's Medication Instructions Recorded furosemide 20 mg tablet 20 mg PO DAILY Fluid #90 tabs 11/22/23 clopidogrel 75 mg tablet 75 mg PO DAILY Blood Thinner #90 11/29/23 tabs sacubitril 24 mg-valsartan 26 mg 1 tab PO BID #60 tabs 11/29/23 tablet (Entresto) insulin glargine 100 unit/mL (3 12 unit (0.12 mL) SQ BID Diabetes 01/02/24 mL) subcutaneous pen 90 days #21.6 mL semaglutide 0.25 mg or 0.5 mg (2 0.5 mg (0.736 mL) SQ WEEKLY 30 01/16/24 mg/3 mL) subcutaneous pen injector days #3.68 mL Allergies Allergy/AdvReac Type Severity Reaction Status Date / Time No Known Allergies Allergy Verified 01/16/24 09:00 [facility] <NATHAN Wilder - Last Filed: 01/16/24 22:43> [facility] Disclaimer: The information contained in this section may have been updated after the patient was seen, as this information can be updated by other users. Medical History Impacted cerumen of right ear Hearing loss Dizziness and giddiness Dizziness Cataract Hx-TIA (transient ischemic attack) SOB (shortness of breath) on exertion Pacemaker History of gastroesophageal reflux (GERD) Depression Anxiety Diabetes mellitus, type 2 COPD (chronic obstructive pulmonary disease) History of heart attack Atrial fibrillation Hyperlipidemia Chronic systolic heart failure PAF (paroxysmal atrial fibrillation) On Eliquis Non-ischemic cardiomyopathy Pacemaker defibrillator. Recently started on Entresto. Hypertension Normotensive CAD (coronary artery disease) 10/2022: Echocardiogram, EF 35-40% Surgical History History of heart artery stent Hx of sinus surgery History of tonsillectomy History of hysterectomy AICD (automatic cardioverter/defibrillator) present Family History Other Family history of cancer Family history of myocardial infarction Family history of stroke Social History Smoking Status: Never smoker alcohol intake: never substance use type: denies use current occupational status: employed Travel in the last 8 weeks: None household members: family and children housing: house lives independently: Yes marital status: single education level: college service: No current occupational exposures/hazards: No caffeine: Yes special monisha needs: No do you feel safe at home: Yes victim of physical abuse: No victim of emotional abuse: No victim of sexual abuse: No would you like helpful sources: No <NATHAN Wilder - Last Filed: 01/16/24 22:43> ROS Obtained: Yes Systems reviewed as appropriate & no additional complaints except as documented Physical Exam <NATHAN Wilder - Last Filed: 01/16/24 22:43> General General appearance: alert and in no apparent distress Head Head exam: atraumatic and normal inspection Eye Eye exam: Present normal appearance, PERRL and EOMI ENT ENT exam: Present normal exam, normal oropharynx and mucous membranes moist Neck Neck exam: Present normal inspection, full ROM, trachea midline and lymphadenopathy Chest Chest inspection: Present normal inspection and symmetric chest wall rise Respiratory Respiratory exam: Present normal lung sounds bilaterally Cardiovascular Cardiovascular exam: Present regular rate, normal rhythm, normal heart sounds, +S1 and +S2 Abdominal Exam Abdominal exam: Present soft and normal bowel sounds; Absent tenderness, guarding or rebound Extremities Exam Extremities exam: Present normal inspection and full ROM Back Exam Back exam: Present normal inspection and full ROM; Absent tenderness Neurological Exam Neurological exam: Present alert, oriented X3 and CN II-XII intact Psychiatric Psychiatric exam: Present normal affect and normal mood Skin Skin exam: Present warm, dry and normal color Medical Decision Making <NATHAN Wilder - Last Filed: 01/16/24 22:43> Medical Records Medical records reviewed: Yes I reviewed the patient's medical records. Alberto Inquiry Pt receiving controlled substance: No Vital Signs: 01/16/24 20:26 01/16/24 21:00 01/16/24 21:30 Temperature 98.2 F Temperature Source Oral Pulse Rate 71 69 Pulse Rate [Left Radial] 65 Respiratory Rate 18 14 16 Blood Pressure 112/65 107/61 L Blood Pressure [Right Arm] 139/75 Blood Pressure Mean [Right Arm] 96 Blood Pressure Source Blood Pressure Source [Right Arm] Automatic Cuff Blood Pressure Position Blood Pressure Position [Right Arm] Sitting 02 Sat by Pulse Oximetry 98 97 95 Oxygen Delivery Method Room Air Room Air Room Air 01/16/24 22:30 01/16/24 23:15 Temperature 98.2 F Temperature Source Oral Pulse Rate 65 68 Pulse Rate [Left Radial] Respiratory Rate 19 16 Blood Pressure 125/76 128/67 Blood Pressure [Right Arm] Blood Pressure Mean [Right Arm] Blood Pressure Source Automatic Cuff Blood Pressure Source [Right Arm] Blood Pressure Position Sitting Blood Pressure Position [Right Arm] 02 Sat by Pulse Oximetry 99 Oxygen Delivery Method Room Air Room Air Lab Data Lab results reviewed: Yes I reviewed the patient's lab results. Lab Results 01/16/24 20:40: WBC 12.0 H, RBC 5.17, Hgb 15.5, Hct 47.6 H, MCV 92.1, MCH 29.9, MCHC 32.5, RDW 14.1, Plt Count 249, MPV 8.3, Neut % (Auto) 70.9, Lymph % (Auto) 21.2, [place] % (Auto) 5.9, Eos % (Auto) 1.2, Baso % (Auto) 0.7, Neut # (Auto) 8.5 H, Lymph # (Auto) 2.6, [place] # (Auto) 0.7, Eos # (Auto) 0.2, Baso # (Auto) 0.1, Sodium 138, Potassium 3.8, Chloride 103, Carbon Dioxide 25, Anion Gap 13.8, BUN 21 H, Creatinine 0.90, Estimated Creat Clear 54, Estimated GFR 61, Est GFR ( Amer) 74, Glucose 174 H, Calcium 9.9, Magnesium 1.9, Total Bilirubin 0.6, AST 34, ALT 26, Alkaline Phosphatase 118, Total Creatine Kinase 107, Troponin I < 0.01, Total Protein 7.9, Albumin 4.3, Globulin 3.6 H, Albumin/Globulin Ratio 1.2, TSH 4.14 01/16/24 22:03: Urine Color Yellow, Urine Appearance Clear, Urine pH 6.0, Ur Specific [place] <= 1.005, Urine Protein Negative, Urine Glucose (UA) 3+, Urine Ketones Negative, Urine Blood Negative, Urine Nitrate Negative, Urine Bilirubin Negative, Urine Urobilinogen 0.2, Ur Leukocyte Esterase Negative, Urine RBC None, Urine WBC 3-5, Ur Squamous Epith Cells Occasional, Urine Bacteria None 01/16/24 20:40 01/16/24 20:40 Orders (Tests/Meds): ED MEDICATIONS Discontinued Medications Generic Name Dose Route Start Last Admin Trade Name Freq PRN Reason Stop Dose Admin Acetaminophen 1,000 mg 01/16/24 20:34 01/16/24 20:59 Acetaminophen 1,000mg/100ml Vial IV 01/16/24 20:35 1,000 mg ONCE ONE Administration Lactated Ringer's 1,000 mls @ 999 mls/hr 01/16/24 20:34 01/16/24 20:58 Lactated Ringer's 1000 Ml Bag IV 01/16/24 21:34 999 mls/hr .Q1H1M ONE Administration Ketorolac Tromethamine 15 mg 01/16/24 20:34 01/16/24 20:58 Ketorolac 30mg/Ml Vial IV 01/16/24 20:35 15 mg ONCE ONE Administration ORDERS Category Date Time Status Chest XR -- portable [XR chest portable] Stat Exams 01/16/24 20:35 Completed CBC w/Auto Diff [Complete Blood Count Auto Diff] Stat Lab 01/16/24 20:40 Completed CK [Creatine Kinase] Stat Lab 01/16/24 20:40 Completed CMP [Comprehensive Metabolic Panel] Stat Lab 01/16/24 20:40 Completed Magnesium Stat Lab 01/16/24 20:40 Completed TSH [Thyroid Stimulating Hormone] Stat Lab 01/16/24 20:40 Completed Trop I [Troponin I] Stat Lab 01/16/24 20:40 Completed UA [Urinalysis and Microscopic] Stat Lab 01/16/24 22:03 Completed HEART Score History (anamnesis): Slightly suspicious ECG: Non-specific disturbance Age: >65 years Risk factors: Atherosclerosis history Troponin: </= normal limit HEART Score: 5 Medical Decision Narrative: In summary patient is a in summary patient is a 78-year-old female who presents to the emergency department for evaluation of generalized weakness and chest pressure. Patient is hemodynamically stable upon arrival, afebrile. Physical exam is unremarkable and nonfocal with a Glascow coma score 15 and no focal neurologic deficits. NIH stroke score 0. Interview of the patient reveals that the only new medication to her regimen is Ozempic which was added within the last 30 days. Patient is additionally on Jardiance as well.. Differential diagnosis includes ACS versus rhabdomyolysis versus electrolyte abnormality versus dehydration etc. Initial workup will be conducted with hematologic labs plain film chest x-ray twelve-lead EKG. Initial interventions include continuous pulse oximetry and cardiac monitoring, crystalloid bolus and Tylenol Toradol. Initial workup reviewed by me shows that her hematologic labs are nonactionable including negative troponin and her EKG shows normal sinus rhythm the bedside monitor. My informal interpretation of her plain film chest x-ray shows no acute processes. Upon repeat evaluation patient reports feeling somewhat stronger after fluids and Tylenol. Given this patient is appropriate for discharge with close follow-up with her PCP. Patient return to ER for any worsening signs or symptoms as needed. <Rodrigue Orozco MD - Last Filed: 01/17/24 23:52> Vital Signs: 01/16/24 20:26 01/16/24 21:00 01/16/24 21:30 Temperature 98.2 F Temperature Source Oral Pulse Rate 71 69 Pulse Rate [Left Radial] 65 Respiratory Rate 18 14 16 Blood Pressure 112/65 107/61 L Blood Pressure [Right Arm] 139/75 Blood Pressure Mean [Right Arm] 96 Blood Pressure Source Blood Pressure Source [Right Arm] Automatic Cuff Blood Pressure Position Blood Pressure Position [Right Arm] Sitting 02 Sat by Pulse Oximetry 98 97 95 Oxygen Delivery Method Room Air Room Air Room Air 01/16/24 22:30 01/16/24 23:15 Temperature 98.2 F Temperature Source Oral Pulse Rate 65 68 Pulse Rate [Left Radial] Respiratory Rate 19 16 Blood Pressure 125/76 128/67 Blood Pressure [Right Arm] Blood Pressure Mean [Right Arm] Blood Pressure Source Automatic Cuff Blood Pressure Source [Right Arm] Blood Pressure Position Sitting Blood Pressure Position [Right Arm] 02 Sat by Pulse Oximetry 99 Oxygen Delivery Method Room Air Room Air Lab Data Lab Results 01/16/24 20:40: WBC 12.0 H, RBC 5.17, Hgb 15.5, Hct 47.6 H, MCV 92.1, MCH 29.9, MCHC 32.5, RDW 14.1, Plt Count 249, MPV 8.3, Neut % (Auto) 70.9, Lymph % (Auto) 21.2, [place] % (Auto) 5.9, Eos % (Auto) 1.2, Baso % (Auto) 0.7, Neut # (Auto) 8.5 H, Lymph # (Auto) 2.6, [place] # (Auto) 0.7, Eos # (Auto) 0.2, Baso # (Auto) 0.1, Sodium 138, Potassium 3.8, Chloride 103, Carbon Dioxide 25, Anion Gap 13.8, BUN 21 H, Creatinine 0.90, Estimated Creat Clear 54, Estimated GFR 61, Est GFR ( Amer) 74, Glucose 174 H, Calcium 9.9, Magnesium 1.9, Total Bilirubin 0.6, AST 34, ALT 26, Alkaline Phosphatase 118, Total Creatine Kinase 107, Troponin I < 0.01, Total Protein 7.9, Albumin 4.3, Globulin 3.6 H, Albumin/Globulin Ratio 1.2, TSH 4.14 01/16/24 22:03: Urine Color Yellow, Urine Appearance Clear, Urine pH 6.0, Ur Specific [place] <= 1.005, Urine Protein Negative, Urine Glucose (UA) 3+, Urine Ketones Negative, Urine Blood Negative, Urine Nitrate Negative, Urine Bilirubin Negative, Urine Urobilinogen 0.2, Ur Leukocyte Esterase Negative, Urine RBC None, Urine WBC 3-5, Ur Squamous Epith Cells Occasional, Urine Bacteria None Orders (Tests/Meds): ED MEDICATIONS Discontinued Medications Generic Name Dose Route Start Last Admin Trade Name Freq PRN Reason Stop Dose Admin Acetaminophen 1,000 mg 01/16/24 20:34 01/16/24 20:59 Acetaminophen 1,000mg/100ml Vial IV 01/16/24 20:35 1,000 mg ONCE ONE Administration Lactated Ringer's 1,000 mls @ 999 mls/hr 01/16/24 20:34 01/16/24 20:58 Lactated Ringer's 1000 Ml Bag IV 01/16/24 21:34 999 mls/hr .Q1H1M ONE Administration Ketorolac Tromethamine 15 mg 01/16/24 20:34 01/16/24 20:58 Ketorolac 30mg/Ml Vial IV 01/16/24 20:35 15 mg ONCE ONE Administration ORDERS Category Date Time Status Chest XR -- portable [XR chest portable] Stat Exams 01/16/24 20:35 Completed CBC w/Auto Diff [Complete Blood Count Auto Diff] Stat Lab 01/16/24 20:40 Completed CK [Creatine Kinase] Stat Lab 01/16/24 20:40 Completed CMP [Comprehensive Metabolic Panel] Stat Lab 01/16/24 20:40 Completed Magnesium Stat Lab 01/16/24 20:40 Completed TSH [Thyroid Stimulating Hormone] Stat Lab 01/16/24 20:40 Completed Trop I [Troponin I] Stat Lab 01/16/24 20:40 Completed UA [Urinalysis and Microscopic] Stat Lab 01/16/24 22:03 Completed ECG Data Tracing #1: I reviewed this ECG and interpreted as documented below: Sinus rhythm 67 beats a minute. Left axis deviation with left bundle branch block. OK 156, QRS 143, QTc 455. No ischemic change. HEART Score HEART Score: 5 Medical Decision Narrative: In summary patient is a in summary patient is a 78-year-old female who presents to the emergency department for evaluation of generalized weakness and chest pressure. Patient is hemodynamically stable upon arrival, afebrile. Physical exam is unremarkable and nonfocal with a Glascow coma score 15 and no focal neurologic deficits. NIH stroke score 0. Interview of the patient reveals that the only new medication to her regimen is Ozempic which was added within the last 30 days. Patient is additionally on Jardiance as well.. Differential diagnosis includes ACS versus rhabdomyolysis versus electrolyte abnormality versus dehydration etc. Initial workup will be conducted with hematologic labs plain film chest x-ray twelve-lead EKG. Initial interventions include continuous pulse oximetry and cardiac monitoring, crystalloid bolus and Tylenol Toradol. Initial workup reviewed by me shows that her hematologic labs are nonactionable including negative troponin and her EKG shows normal sinus rhythm the bedside monitor. My informal interpretation of her plain film chest x-ray shows no acute processes. Upon repeat evaluation patient reports feeling somewhat stronger after fluids and Tylenol. Given this patient is appropriate for discharge with close follow-up with her PCP. Patient return to ER for any worsening signs or symptoms as needed. I was consulted by the JERRY, and we discussed the complexity of the problems being addressed. I approved the treatment and management plan for this patient?s care in the Emergency Department, thus performing a substantive portion of the medical decision making. Rodrigue Orozco MD Critical Care <NATHAN Wilder - Last Filed: 01/16/24 22:43> Critical Care Time Critical Care Time: No
--- NOTE | 2024-01-16 20:35 | XR_ITS ---
PROCEDURE INFORMATION: Exam: XR Chest Exam date and time: 01/16/24 08:40 PM Age: 78 years old Clinical indication: Pain; Chest pressure; Additional info: Chest pain TECHNIQUE: Imaging protocol: Radiologic exam of the chest. Views: 1 view. COMPARISON: CR XR CHEST AP 09/03/22 09:28 AM FINDINGS: Tubes, catheters and devices: Left subclavian pacemaker leads overlie the right atrium and right ventricle. Lungs: Unremarkable. No consolidation. Pleural spaces: Unremarkable. No pleural effusion. No pneumothorax. Heart/Mediastinum: Unremarkable. No cardiomegaly. Bones/joints: Unremarkable. IMPRESSION: Left subclavian pacemaker leads overlie the right atrium and right ventricle.
--- NOTE | 2024-01-16 20:42 | ECG_ITS ---
APPROVED REPORT Exam: Resting ECG HR:67 bpm ECG Measurements Heart Rate 67 AXES PA 156 P 55 QRSd 143 QRS -71 QT 439 T 83 QTc 455 Conclusion SINUS RHYTHM LEFT AXIS DEVIATION [QRS AXIS < -30] LEFT BUNDLE BRANCH BLOCK [120+ ms QRS DURATION, 80+ ms Q/S IN V1/V2, 85+ ms R IN I/aVL/V5/V6] Electronically signed by : DANIELLE LARSEN, 01/16/2024 22:40:40
[2024-01-16 20:51] LABS: Basophils # 0.1 K/mm3 (0-0.2); Basophils % 0.7 % (0.1-2.0); Eosinophils # 0.2 K/mm3 (0.0-0.4); Eosinophils % 1.2 % (0.1-12.0); Hematocrit 47.6 % (37.0-47.0); Hemoglobin 15.5 g/dL (12.2-16.2); Lymphocytes # 2.6 K/mm3 (0.7-4.5); Lymphocytes % 21.2 % (10-50); Mean Corpuscular HGB Conc 32.5 g/dL (31.8-35.4); Mean Corpuscular Hemoglobin 29.9 pg (27.0-31.2); Mean Corpuscular Volume 92.1 fl (81-99); Mean Platelet Volume 8.3 fl (7.4-10.4); Monocytes # 0.7 K/mm3 (0.1-1.0); Monocytes % 5.9 % (1.7-9.3); Neutrophils # 8.5 K/mm3 (1.8-7.8); Neutrophils % 70.9 % (37.0-80.0); Platelet Count 249 K/mm3 (142-424); Red Blood Count 5.17 M/mm3 (4.20-5.40); Red Cell Distribution Width 14.1 % (11.5-17.5)
[2024-01-16 20:58] LABS: Chloride 103 mmol/L (98-107); Potassium 3.8 mmoL/L (3.5-5.1); Sodium 138 mmol/L (136-145)
[2024-01-16] MEDS: KETOROLAC 30MG/ML VIAL 15 MG IV (20:58)
[2024-01-16] MEDS: LACTATED RINGERS 1000ML 1,000 ML 999 ML IV (20:58)
[2024-01-16] MEDS: ACETAMINOPHEN 1,000MG/100ML VIAL 1000 MG IV (20:59)
[2024-01-16 21:00] VITALS: BP 112/65; PULSE 71; RESP 14; O2SAT 97
[2024-01-16 21:00] LABS: Alanine Aminotransferase 26 U/L (12-78); Aspartate Amino Transferase 34 U/L (14-36); Blood Urea Nitrogen 21 mg/dl (7-17); Creatinine Clearance Estimated 54 mL/min (50-200); Estimated Glomerular Filt Rate 61 ml/min (>60); GFR (African American) 74 ML/MIN (>60)
[2024-01-16 21:01] LABS: Albumin Level 4.3 g/dl (3.5-5.0); Albumin/Globulin Ratio 1.2 (1.1-1.8); Alkaline Phosphatase 118 U/L (38-126); Anion Gap 13.8 mEq/L (5-15); Bilirubin,Total 0.6 mg/dl (0.2-1.3); Calcium 9.9 mg/dl (8.4-10.2); Carbon Dioxide 25 mmol/L (22.0-30.0); Creatine Kinase 107 U/L (30-135); Globulin 3.6 g/dL (1.3-3.2); Glucose 174 mg/dl (74-100); Magnesium 1.9 mg/dl (1.6-2.3); Total Protein,Serum 7.9 g/dl (6.3-8.2)
[2024-01-16 21:15] LABS: Troponin I < 0.01 ng/ml (0.00-0.034)
[2024-01-16 21:30] VITALS: BP 107/61; PULSE 69; RESP 16; O2SAT 95
[2024-01-16 21:32] LABS: Thyroid Stimulating Hormone 4.14 uIU/mL (0.465-4.68)
[2024-01-16 22:08] LABS: Microscopic, Urine URINE MICROSCOPIC (MICROSCOPIC)
[2024-01-16 22:11] LABS: Appearance,Urine CLEAR (Clear); Bilirubin,Urine Negative (Negative); Blood, Urine Negative (Negative); Color,Urine YELLOW (Yellow); Glucose,Urine (UA) 3+ (Negative); Ketones,Urine Negative (Negative); Leukocyte Esterase,Urine Negative (Negative); Nitrate,Urine Negative (Negative); Protein,Urine Negative (Negative); Specific Gravity, Urine <= 1.005 (1.005-1.030); Urobilinogen,Urine 0.2 EU/dl (0.2)
[2024-01-16 22:30] VITALS: BP 125/76; PULSE 65; RESP 19; O2SAT 99
[2024-01-16 22:30] LABS: Squamous Epithelial Cell,Urine Occasional #/hpf (0-5)
[2024-01-16 23:15] VITALS: BP 128/67; PULSE 68; RESP 16; TEMP 36.8; O2SAT 99
== END 2024-01-16 23:16 | disposition home or self-care (01) ==
PROVIDERS: Physician Assistant; Emergency Provider Emergency Medicine; PCP Nurse Practitioner Family
DX: R07.89 Other chest pain (principal); I44.7 Left bundle-branch block, unspecified; R53.1 Weakness; J44.9 Chronic obstructive pulmonary disease, unspecified; E11.9 Type 2 diabetes mellitus without complications; K21.9 Gastro-esophageal reflux disease without esophagitis; E78.5 Hyperlipidemia, unspecified; I48.0 Paroxysmal atrial fibrillation; I11.0 Hypertensive heart disease with heart failure; I50.22 Chronic systolic (congestive) heart failure; I25.10 Atherosclerotic heart disease of native coronary artery without angina pectoris; Z79.4 Long term (current) use of insulin; Z79.84 Long term (current) use of oral hypoglycemic drugs; Z79.85 Long-term (current) use of injectable non-insulin antidiabetic drugs; Z95.5 Presence of coronary angioplasty implant and graft; Z95.0 Presence of cardiac pacemaker; Z79.01 Long term (current) use of anticoagulants
CPT/HCPCS: 71045; 80053; 81001; 82550; 83735; 84443; 84484; 85025; 93005; 96361; 96374; 96375; 99284; J0131; J1885; J7120

== ENCOUNTER 2024-02-08 09:25 | Outpatient (POV) | payer MEDICARE, OTHER, SELFPAY | END 2024-02-08 23:59 | disposition home or self-care (01) | LOC: SC 09:26 | PROVIDERS: Visit Provider Specialist/Technologist | DX: Z00.00 Encounter for general adult medical examination without abnormal findings (principal) ==

== ENCOUNTER 2024-02-13 10:51 | Outpatient (CLI) | payer MEDICARE, OTHER, SELFPAY ==
[2024-02-13 11:45] LABS: Alanine Aminotransferase 20 U/L (12-78); Albumin/Globulin Ratio 1.4 (1.1-1.8); Alkaline Phosphatase 123 U/L (38-126); Anion Gap 11.7 mEq/L (5-15); Aspartate Amino Transferase 27 U/L (14-36); Bilirubin,Total 0.9 mg/dl (0.2-1.3); Blood Urea Nitrogen 23 mg/dl (7-17); Calcium 9.9 mg/dl (8.4-10.2); Carbon Dioxide 29 mmol/L (22.0-30.0); Chloride 102 mmol/L (98-107); Estimated Glomerular Filt Rate 54 ml/min (>60); GFR (African American) 65 ML/MIN (>60); Globulin 2.8 g/dL (1.3-3.2); Glucose 190 mg/dl (74-100); Potassium 4.7 mmoL/L (3.5-5.1); Sodium 138 mmol/L (136-145); Total Protein,Serum 6.8 g/dl (6.3-8.2)
[2024-02-13 11:59] LABS: Hemoglobin A1C 8.9 % (4.0-6.0)
== END 2024-02-13 23:59 | disposition home or self-care (01) ==
LOC: LAB.DROPOF 10:52
PROVIDERS: PCP Nurse Practitioner Family; Visit Provider Nurse Practitioner Family
DX: E11.65 Type 2 diabetes mellitus with hyperglycemia; Z79.4 Long term (current) use of insulin; Z79.85 Long-term (current) use of injectable non-insulin antidiabetic drugs
CPT/HCPCS: 80053; 83036

== ENCOUNTER 2024-02-23 14:00 | Outpatient (RCR) | payer MEDICARE, OTHER, SELFPAY ==
--- NOTE | 2023-12-20 16:06 | [facility].PTOPEV ---
PT Outpatient Evaluation Rehab PT Outpatient Evaluation Start: 12/20/23 14:03 Freq: Status: Active Protocol: Document 12/20/23 15:30 PHORNE (Rec: 12/20/23 16:05 PHORNE Laptop) E-signed By Luis Alberto Stern, PT Outpatient Therapy Subjective History Subjective History This is the initial PT eval for Shyanne Smiley, 78 yowf who presents with c/o dizziness with movement x ~ 1. 5 yrs since she suffered a L parietal CVA. She reports her balance and dizziness remain worse than her baseline and she feels significant tinnitus , from both sides all the time. She reports feeling more sensitive to loud noises and bright lights as well. She reports these symptoms affect her ambulation and all ADLs. She reports 4 falls within the past 6 mos, I just get my feet tangled. 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 New diagnosis of cancer in past 12 No months? Chief Complaint Other Symptoms Relieved By Rest/Positioning Symptoms Aggravated By Physical Activity Prior Functional Limitations None Current Functional Limitations Housework,Recreation Activity, Walking,Balance Balance Eval Hx of Falls Hx Falls Yes Number in last 6 months 4 Gait/Posture Asssessment General Gait Observation Shuffling Step Nystagmus Nystagmus Presence None Oculomotor Gaze Oculomotor Gaze Nml: Vergence Smooth Pursuit Saccades Cover/Uncover Cross Cover Abn: VOR Cancellation Dynamic Gait Index Test Protocol Gait Level Surface Mild Impairment Query Text: Instructions: Walk at your normal speed from here to the next andrew (20'). Grading: Andrew the lowest category that applies. Change in Gait Speed Moderate Impairment Query Text: Instructions: Begin walking at your normal pace (for 5'), when I tell you go , walk as fast as you can (for 5'). When I tell you slow , walk as slowly as you can (for 5'). Grading: Andrew the lowest category that applies. Gait with Horizontal Head Turns Mild Impairment Query Text: Instructions: Begin walking at your normal pace. When I tell you to look right , keep walking straight, but turn you head to the right. Keep looking to the right unit I tell you look left , then keep walking straight and turn your head to the left. Keep your head to the left until I tell you look straight , then keep walking straight, but return you head to the center. Grading: Andrew the lowest category that applies. Gait with Vertical Head Turns Moderate Impairment Query Text: Instructions: Begin walking at your normal pace. When I tell you to look up , keep walking staight, but tip your head up. Keep looking up until I tell you to look down , then keep walking straight and tip your head down. Keep your head down until I tell you look straight , then keep walking straight, but return your head to the center. Grading: Andrew the lowest category that applies. Gait and Pivot Turn Moderate Impairment Query Text: Instructions: Begin walking at your normal pace. When I tell you turn and stop , turn as quickly as you can to face the opposite direction and stop. Grading: Andrew the lowest category that applies. Step Over Obstacle Normal Query Text: Instructions: Begin walking at your normal speed. When you come to the shoebox, step over it, not around it and keep walking. Grading: Andrew the lowest category that applies. Step Around Obstacles Normal Query Text: Instructions: Begin walking at normal speed. When you come to the first cone (about 6' away), walk around the right side of it. When you come to the second cone (6' past first cone), walk around it to the left. Grading: Andrew the lowest category that applies. Steps Moderate Impairment Query Text: Instructions: Walk up these stairs as you would at home. At the top, turn around and walk down. Grading: Andrew the lowest category that applies. 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 Skilled therapy services are indicated to return pt to prior level o function. Clinical Impression Consistent with Diagnosis Yes Short Term Goals Number of Weeks 2 Improve Gait Pattern with Assistive Yes: No shuffling gait. Device Increase DGI Score Yes: >17 Patient to be Ind w/ HEP Yes Snf Goals Number of Weeks 4 Increase Ability to Walk Yes: without loss of balance Improve Ability For Household Care Yes Return to Recreational Activities Yes Increase DGI Score Yes: >19 Patient to be Ind w/ Advanced HEP Yes Outpatient Therapy Plan of Care Treatment Plan May Include Therapeutic Exercise Including Home Yes Exercise Program Manual Therapy Techniques Yes Neuromuscular Re-education Yes Therapeutic Activities to Return to Yes Previous Functional/Work Level Gait Training Yes ADL/Self Care Education Yes Eval/Re-Eval Yes Frequency Times per week 2 Duration Number of Weeks 4 Addendums This patient is a candidate for social No or vocational rehab? Patient/Guardian verbally acknowledges Yes understanding of treatment program and consents to further treatment? Patient/Guardian verbally acknowledges Yes understanding of diagnosis, prognosis and goals for treatment? Eval Complexity PT Charges 27271 - High Complexity Shoulder/Elbow Eval Shoulder Objective Measurements Elbow Objective Measurements PHYSICIAN CERTIFICATION: I certify the specified therapy services for Shyanne Smiley are required, authorized, and reviewed every 30 days.
--- NOTE | 2024-02-07 16:59 | HMH.RHREAS ---
Rehab Reassessment Rehab OP Re-assessment Start: 12/20/23 14:03 Freq: Status: Active Protocol: Document 02/07/24 16:50 AZAM (Rec: 02/07/24 16:57 PHORJANELL [id number]) E-signed By Luis Alberto Stern PT Dynamic Gait Index Test Protocol Gait Level Surface Normal Query Text: Instructions: Walk at your normal speed from here to the next padma (20'). Grading: Padma the lowest category that applies. Change in Gait Speed Normal Query Text: Instructions: Begin walking at your normal pace (for 5'), when I tell you go , walk as fast as you can (for 5'). When I tell you slow , walk as slowly as you can (for 5'). Grading: Padma the lowest category that applies. Gait with Horizontal Head Turns Mild Impairment Query Text: Instructions: Begin walking at your normal pace. When I tell you to look right , keep walking straight, but turn you head to the right. Keep looking to the right unit I tell you look left , then keep walking straight and turn your head to the left. Keep your head to the left until I tell you look straight , then keep walking straight, but return you head to the center. Grading: Padma the lowest category that applies. Gait with Vertical Head Turns Mild Impairment Query Text: Instructions: Begin walking at your normal pace. When I tell you to look up , keep walking staight, but tip your head up. Keep looking up until I tell you to look down , then keep walking straight and tip your head down. Keep your head down until I tell you look straight , then keep walking straight, but return your head to the center. Grading: Padma the lowest category that applies. Gait and Pivot Turn Mild Impairment Query Text: Instructions: Begin walking at your normal pace. When I tell you turn and stop , turn as quickly as you can to face the opposite direction and stop. Grading: Padma the lowest category that applies. Step Over Obstacle Mild Impairment Query Text: Instructions: Begin walking at your normal speed. When you come to the shoebox, step over it, not around it and keep walking. Grading: Padma the lowest category that applies. Step Around Obstacles Mild Impairment Query Text: Instructions: Begin walking at normal speed. When you come to the first cone (about 6' away), walk around the right side of it. When you come to the second cone (6' past first cone), walk around it to the left. Grading: Padma the lowest category that applies. Steps Mild Impairment Query Text: Instructions: Walk up these stairs as you would at home. At the top, turn around and walk down. Grading: Padma the lowest category that applies. Scoring Dynamic Gait Index Score 18 Rehab Re-assessment Subjective Subjective Pt reports, :I just feel like I have been getting weaker for a few weeks and I don't know why. I do feel better about my light sensitivity and I don't have a problem with loud noises now. She reports improved mobility most of the time as well, It's just when I turn that causes the problems. Objective Objective Notes DGI: which is an increase of 4 pts vs IE. Gait: No shuffling gait pattern noted with increased step height B and improved heel strike B. Assessment Progress Assessment Progressing as Expected Assessment Notes She has shown significant improvements in her gait pattern some improvement in dynamic standing balance. She continues to have dizziness which limits her overall mobility and ADLs. Skilled therapy remains necessary to return pt to PLOF. Patient goals met ST/3 LT/5 Goals Not Met LT/5 Plan Plan Continue per initial POC. Frequency of Therapy 2 x/wk Duration of therapy 3-4 wks Time and Billing Re-Eval Time 13 Re-Eval Billing Units 0 PHYSICIAN CERTIFICATION: I certify the specified therapy services for Shyanne Smiley are required, authorized, and reviewed every 30 days.
== END 2024-02-23 14:05 | disposition home or self-care (01) ==
LOC: PT 14:00
PROVIDERS: Visit Provider Nurse Practitioner
DX: R42 Dizziness and giddiness (principal)
CPT/HCPCS: 97110; 97112; 97163; 97164; 97530

== ENCOUNTER 2025-03-05 09:13 | Outpatient (CLI) | payer MEDICARE, OTHER, SELFPAY ==
--- OUTSIDE RECORDS SUMMARY | 2025-03-05 09:16 | XMS_ITS | Clinical Summary ---
Author Organization Healthcare Address [address] [place] [address] Care Team Providers Care Fire Manager Name Role Phone Elsie Mccurdy DOOR INSTALLER Primary Care Provider [phone] Social History Tobacco Use Types Packs/Day Years Used Date Smoking Tobacco: Never Assessed Comments Unknown Sex and Gender Information Value Date Recorded Sex Assigned at Not on file Legal Sex Female 8:52 PM EDT Gender Identity Not on file Sexual Orientation Not on file Plan of Treatment Health Maintenance Due Date Last Done Comments [facility]-Bone Density Scan 1945 [facility]-Depression Screening 1945 [facility]-Infant/Child/Adol SDOH Screenings 1945 [facility]- SDOH Screenings 1965 [facility]-Adult SDOH Screenings 1965 [facility]-DTaP,Tdap,and Td Vaccines (1 - Tdap) 1966 [facility]-Zoster Vaccines (1 of 2) 1997 [facility]-Pneumococcal Vaccine: 50+ Years (2 of 2 - PPSV23) 02/17/2018 02/17/2017 [facility]-RSV Vaccine: 60+ Years or (1 - 1-dose 75+ series) 2022 [id number] Vaccine ( - season) 2024 06/08/2022, 06/12/2021, 09/24/2020, Additional history exists [facility]-Influenza Vaccine (#1) 2025 06/08/2022 [facility]-Hepatitis A Vaccines Aged Out 03/03/2019, 07/01 No longer eligible based on patient's age to complete this topic HPV Vaccines Aged Out No longer eligi ble based on patient's age to complete this topic [facility]-HIB Vaccines Aged Out No longer e ligible based on patient's age to complete this topic [facility]-IPV Vaccines Aged Out No longer e ligible based on patient's age to complete this topic [facility]-Rotavirus Vaccines Aged Out No lo nger eligible based on patient's age to complete this topic Insurance [place] [address] [place] [address] Care Teams Fire Manager Relationship Specialty Start Date End Date Elsie Mccurdy APRN [address] [place] [id number] PCP - General 11/11/22
[2025-03-05 10:22] LABS: Hematocrit 48.6 % (37.0-47.0); Hemoglobin 16.2 g/dL (12.2-16.2); Immature Granulocytes % 0.5 %; Mean Corpuscular HGB Conc 33.3 g/dL (31.8-35.4); Mean Corpuscular Hemoglobin 29.4 pg (27.0-31.2); Mean Corpuscular Volume 88.2 fl (81-99); Nucleated Red Blood Cells % 0 %; Platelet Count 239 K/mm3 (142-424); Red Blood Count 5.51 M/mm3 (4.20-5.40); Red Cell Distribution Width-SD 41.7 fL; White Blood Count 11.0 K/mm3 (4.8-10.8)
[2025-03-05 10:43] LABS: Albumin Level 3.5 g/dl (3.5-5.0)
[2025-03-05 10:44] LABS: Chloride 97 mmol/L (98-107); Potassium 4.0 mmoL/L (3.5-5.1); Sodium 133 mmol/L (136-145)
[2025-03-05 10:46] LABS: Alanine Aminotransferase 18 U/L (12-78); Anion Gap 11.0 mEq/L (5-15); Aspartate Amino Transferase 24 U/L (14-36); Bilirubin,Unconjugated 0.6 mg/dL (0.0-1.1); Carbon Dioxide 29 mmol/L (22.0-30.0)
[2025-03-05 10:47] LABS: Alkaline Phosphatase 218 U/L (38-126); Bilirubin,Direct 0.1 mg/dl (0.0-0.4); Bilirubin,Indirect 0.5 mg/dL (0.0-0.9); Bilirubin,Total 0.6 mg/dl (0.2-1.3); Calcium 9.9 mg/dl (8.4-10.2); Cholesterol 188 mg/dl (140-200); Glucose 352 mg/dl (74-100); HDL Cholesterol 47 mg/dl (40-60); Magnesium 2.1 mg/dl (1.6-2.3); Total Protein,Serum 7.0 g/dl (6.3-8.2); Triglycerides 339 mg/dl (30-150)
[2025-03-05 10:52] LABS: Blood Urea Nitrogen 14 mg/dl (7-17); Creatinine,Serum 0.80 mg/dl (0.52-1.04); Estimated Glomerular Filt Rate 70 ml/min (>60); GFR (African American) 84 ML/MIN (>60)
[2025-03-05 11:47] LABS: Free T4 (Free Thyroxine) 1.33 ng/dl (0.78-2.19)
[2025-03-05 12:01] LABS: Thyroid Stimulating Hormone 2.13 uIU/mL (0.465-4.68)
[2025-03-05 19:46] LABS: Hemoglobin A1C 12.8 % (4.0-6.0)
== END 2025-03-05 23:59 | disposition home or self-care (01) ==
LOC: LAB 09:14
PROVIDERS: PCP Nurse Practitioner; Visit Provider Physician Assistant
DX: I25.118 Atherosclerotic heart disease of native coronary artery with other forms of angina pectoris (principal); E11.65 Type 2 diabetes mellitus with hyperglycemia; I50.22 Chronic systolic (congestive) heart failure; I11.0 Hypertensive heart disease with heart failure
CPT/HCPCS: 36415; 80048; 80061; 80076; 83036; 83735; 84439; 84443; 85025